=== PATIENT | female | born 2000 | race Caucasian/White ===

== ENCOUNTER 2020-02-16 09:02 | Outpatient (CLI) | payer OTHER, SELFPAY ==
--- NOTE | ~2020-02-16 | US_ITS ---
EXAMINATION: US retroperitoneal duplex ltd EXAM DATE: 02/16/2020 09:37 INDICATION: Essential hypertension. TECHNIQUE: Multiple grayscale and Doppler images of the retroperitoneum and renal arteries were obta ined. There is no prior study for comparison. FINDINGS: The aorta peak systolic velocity is 117 cm/s. The right renal artery peak systolic velocity is 73 cm/ s in the proximal segment, 65 cm/s in the mid segment, and 50 cm/s in the distal segment. The left re nal artery peak systolic velocity is 76 cm/s in the proximal segment, 72 cm/s in the mid segment, and 109 cm/s in the distal segment. IMPRESSION: 1. Renal artery Doppler velocities within normal limits. Reviewed, dictated and finalized at location B. ENTER GENERAL
== END 2020-02-16 09:03 | disposition home or self-care (01) ==
PROVIDERS: PCP Emergency Medicine; Visit Provider Emergency Medicine
DX: I10 Essential (primary) hypertension (principal)
CPT/HCPCS: 93976

== ENCOUNTER → 2020-04-22 06:57 | Outpatient (CLI) | payer OTHER, SELFPAY ==
[2020-04-22 22:51] LABS: SARS-CoV-2 RNA PCR Negative
== END ==
PROVIDERS: PCP Emergency Medicine; Visit Provider Emergency Medicine
DX: Z20.822 Contact with and (suspected) exposure to COVID-19 (principal); J01.10 Acute frontal sinusitis, unspecified; J02.9 Acute pharyngitis, unspecified
CPT/HCPCS: C9803; U0003; U0005

== ENCOUNTER 2020-04-27 15:59 | Outpatient (CLI) | payer OTHER, SELFPAY ==
--- NOTE | ~2020-04-27 | CT_ITS ---
EXAMINATION: CT sinus wo con DATE: 04/27/2020 16:18 INDICATION: Acute frontal sinusitis and pressure TECHNIQUE: Computed tomography (CT) of the paranasal sinuses was performed without intravenous contra st. The dose-length product (DLP) was 228.78 mGy-cm. Iterative reconstruction was used. COMPARISON: None FINDINGS: There is normal development and pneumatization of the paranasal sinuses. The frontal, sphen oid, ethmoid, and maxillary sinuses are clear. The bilateral ostiomeatal complexes are patent. Visual ized soft tissues are unremarkable. Multiple dental caries are noted. IMPRESSION: 1. No evidence of sinusitis. 2. Multiple dental caries. Reviewed, dictated and finalized at location A. CAL POLICY SPECIALIST
== END 2020-04-27 16:00 | disposition home or self-care (01) ==
LOC: ANHIMG 15:59
PROVIDERS: PCP Emergency Medicine; Visit Provider Emergency Medicine
DX: J01.10 Acute frontal sinusitis, unspecified (principal); R52 Pain, unspecified
CPT/HCPCS: 70486

== ENCOUNTER 2020-08-02 12:13 | Outpatient (CLI) | payer OTHER, SELFPAY ==
--- NOTE | ~2020-08-02 | XR_ITS ---
XR hip RT min 2V 08/02/2020 13:20 INDICATION: Right hip pain PROCEDURE: 2 views right hip COMPARISON: No prior studies for comparison. FINDINGS: Fracture, dislocation or subluxation is not identified. The soft tissues appear within norm al limits. No foreign bodies are identified. IMPRESSION: 1: NO ACUTE BONE OR JOINT ABNORMALITY IDENTIFIED. Reviewed, dictated and finalized at location B.
--- NOTE | ~2020-08-02 | XR_ITS ---
EXAMINATION: XR ankle RT 2V DATE: 08/02/2020 13:20 INDICATION: Right ankle pain post fall TECHNIQUE: Anteroposterior and lateral views of the right ankle were obtained. COMPARISON: None. FINDINGS: Alignment is normal. No fracture. Joint spaces are normal. Soft tissues are unremarkable. IMPRESSION: 1. Negative right ankle radiographs. Reviewed, dictated and finalized at location A.
== END 2020-08-02 12:14 | disposition home or self-care (01) ==
LOC: ANHIMG 12:15
PROVIDERS: PCP Emergency Medicine; Visit Provider Emergency Medicine
DX: M25.579 Pain in unspecified ankle and joints of unspecified foot (principal)
CPT/HCPCS: 73502; 73600

== ENCOUNTER 2020-09-28 16:07 | Emergency (ER) | payer OTHER, SELFPAY ==
--- NOTE | 2020-09-28 16:55 | ED.DENTAL ---
HPI - Dental/Oral General Chief complaint: Dental/Oral Stated complaint: TOOTH PAIN Source: patient, family and RN notes reviewed Mode of arrival: ambulatory History of Present Illness HPI Narrative: This is a 20-year-old female that presents to urgent care with according to patient she has been having left upper molar tooth pain. Patient has several decayed teeth in her mouth unsure of My several her teeth are decayed. Patient has a dental appointment in October. She will be with antibiotics and pain medication. The patient denies SOB, CP, palpitation, extremity numbness, lightheadedness, dizziness, constipation, diarrhea, chills, or fever. Teeth map: 1. Dental decay 2. Dental decay Related Data Home Medications Medication Instructions Recorded Confirmed hydroxyzine pamoate 50 mg capsule See Rx Instructions .ROUTE .COMPLEX 01/26/20 09/28/20 prazosin 5 mg capsule See Rx Instructions .ROUTE .COMPLEX 01/26/20 09/28/20 norethindrone-e.estradiol-iron [Lo tablet 09/28/20 Loestrin Fe] propranolol 09/28/20 risperidone mg 09/28/20 09/28/20 sertraline mg 09/28/20 Allergies Allergy/AdvReac Type Severity Reaction Status Date / Time bupropion [From Wellbutrin] Allergy Intermediate Unknown Unverified 09/28/20 16:35 Contrast Media Allergy Unknown Hives / Uncoded 09/28/20 16:35 Red Face Review of Systems Review of Systems: A 14 organ system Review of Systems was performed and pertinent positives included in the HPI, otherwise remaining ROS is negative. [facility] Past Medical History Medical History Abscess of coccyx (~2015) Asthma Migraine Rapid heartbeat Rash Vaginal bleeding between periods Vaginal infection Surgical History Surgical History Hx of tonsillectomy (~2011) Family History Family History Father High cholesterol Bipolar 1 disorder Depression Mother Bipolar 1 disorder Depression Anxiety OCD (obsessive compulsive disorder) Social History Social History Social History: Patient drinks 2 cups of caffeine daily Smoking status: Never smoker Alcohol intake: never Substance use: never Additional occupation/education comments: Disabled Exam Narrative: GENERAL: This is a well-nourished, well-developed patient, in no apparent distress. HEAD: normocephalic, atraumatic. Mouth several of decayed teeth EYES: PERRL. Sclera clear/white. Vision is grossly intact. EARS: External ears normal, auditory canals clear and without drainage, TMs normal without perforation. Hearing grossly intact. NOSE: External nose normal with no obvious nasal discharge, nares without redness, no rhinorrhea. THROAT: Mucous membranes moist, posterior pharynx clear. NECK: Neck supple, non-tender without lymphadenopathy, masses or thyromegaly. CARDIOVASCULAR: Regular rate and rhythm without murmurs, gallops, or rubs. RESPIRATORY: Clear to auscultation. Breath sounds equal bilaterally. No wheezes, rales, or rhonchi. GASTROINTESTINAL: Abdomen soft, non-tender, nondistended. Bowel sounds are active. No hepato-splenomegaly, or palpable masses. No guarding. SKIN: warm, intact with no suspicious lesions or rash, good texture and turgor. NEURO: awake, alert, and oriented to person, place and time. There were no obvious focal neurologic abnormalities. Steady gait EXTREMITIES: Normal range of motion. No edema. No calf tenderness. Negative Homans sign bilaterally. BACK: Nontender without deformity or crepitance. No flank tenderness. Course Course Emergency Course: Patient will be treated with antibiotics and pain medication instructed to follow-up with a dentist MDM - Dental/Oral Differential Diagnosis Differential diagnosis: Likely gingival abscess, dental caries, toothache, dental abscess and f
== END 2020-09-28 17:02 | disposition home or self-care (01) ==
PROVIDERS: Emergency Provider Nurse Practitioner; PCP Emergency Medicine
DX: K08.89 Other specified disorders of teeth and supporting structures (principal); K02.9 Dental caries, unspecified; J45.909 Unspecified asthma, uncomplicated
CPT/HCPCS: 99213; G0463

== ENCOUNTER 2020-11-08 15:06 | Emergency (ER) | payer OTHER, SELFPAY ==
[2020-11-08 15:22] VITALS: BP 149/100; PULSE 110; RESP 16; TEMP 36.1; O2SAT 97
[2020-11-08 16:01] LABS: Basophils Absolute Auto 0.1 K/mm3 (0.0-0.1); Basophils Percent Auto 0.7 % (0.2-1.2); Eosinophils Absolute Auto 0.2 K/mm3 (0-0.3); Eosinophils Percent Auto 1.7 % (0-4.4); Hematocrit 40.9 % (37.0-47.0); Hemoglobin 13.8 g/dL (12.0-15.0); Immature Granulocyte Absolute 0.06 K/mm3 (0.00-0.031); Immature Granulocyte Percent A 0.6 % (0-0.5); Lymphocytes Absolute Auto 3.08 K/mm3 (0.9-3.2); Lymphocytes Percent Auto 28.9 % (18.3-44.2); Mean Corpuscular HGB Conc 33.7 g/dl (32-36); Mean Corpuscular Hemoglobin 27.4 pg (26-34); Mean Corpuscular Volume 81.3 fl (80-100); Mean Platelet Volume 9.8 fl (7.4-10.4); Monocytes Absolute Auto 0.7 K/mm3 (0.1-0.6); Monocytes Percent Auto 6.2 % (2.6-8.5); Neutrophils Absolute Auto 6.6 K/mm3 (1.3-6.7); Neutrophils Percent Auto 61.9 % (45.5-73.1); Platelet Count Result 282 k/mm3 (150-375); Red Blood Count 5.03 M/mm3 (4.2-5.4); Red Cell Distribution Width 15.1 % (11.5-14.5); White Blood Count 10.6 K/mm3 (4.5-10.0)
[2020-11-08 16:14] LABS: Ethanol < 10 mg/dL (<10)
[2020-11-08 16:15] LABS: Alanine Aminotransferase 13 U/L (4-35); Albumin Level 4.2 g/dL (3.5-5.1); Alkaline Phosphatase 115 U/L (38-126); Anion Gap 13 mmol/L (8-16); Aspartate Amino Transferase 18 U/L (14-36); Bilirubin,Total 0.3 mg/dL (0.2-1.3); Blood Urea Nitrogen 17 mg/dL (7-17); Calcium 9.7 mg/dL (8.4-10.2); Carbon Dioxide 21 mmol/L (22-30); Chloride 106 mmol/L (98-107); Estimated CRCL calculation 172 ml/min; Estimated Glomerular Filt Rate > 60; Glucose 101 mg/dL (65-110); Potassium 4.4 mmol/L (3.4-5.0); Sodium 140 mmol/L (137-145)
[2020-11-08 16:18] LABS: Add Urine Microscopic? YES; Appearance Urine Clear (Clear); Benzodiazepines Screen Urine Negative (Negative); Bilirubin Urine Negative (Negative); Blood Urine Negative (Negative); Color Urine Yellow (Yellow); Glucose Urine UA Negative (Negative); Ketones Urine Negative (Negative); Leukocyte Esterase Ur 3+ LEU/UL (Negative); Mucus Urine Rare /lpf; Nitrate Urine Negative (Negative); Protein Urine 2+ mg/dL (Negative); Squamous Epithelial Cell Urine Many /hpf (Few); Urobilinogen Urine Negative mg/dL (<2.0)
[2020-11-08 16:21] LABS: Specific Grav Ur 1.042 (1.001-1.035)
[2020-11-08 16:23] LABS: Barbiturate Screen Urine Negative (Negative)
--- NOTE | 2020-11-08 16:23 | ED.PSYCH ---
HPI - Psych General Chief Complaint: Psychiatric Symptoms <Lavinia Bai PA-C - Last Filed: 11/11/20 15:41> Stated Complaint: SI <Lavinia Bai PA-C - Last Filed: 11/11/20 15:41> Time Seen by Provider: 11/08/20 15:37 <Lavinia Bai PA-C - Last Filed: 11/11/20 15:41> Source: patient and family <Lavinia Bai PA-C - Last Filed: 11/11/20 15:41> Mode of arrival: EMS <BRIANA Burch Last Filed: 11/11/20 15:41> Limitations: no limitations <Lavinia Bai PA-C - Last Filed: 11/11/20 15:41> History of Present Illness HPI Narrative: This is a 20-year-old female that presents to the emergency department for suicidal ideations. Reports she was sent here from her primary's office. She has had a lot of trouble with depression. Worsening over the last couple of months. Reports she cannot take it anymore. She wants to hurt herself and plans to slit her wrists. She does have history of previous self-harm. Also reports several psychiatric hospitalizations in the past. Reports visual hallucinations. Denies homicidal ideation or auditory hallucinations. <Lavinia Bai PA-C - Last Filed: 11/11/20 15:41> Related Data Home Medications: Home Medications Medication Instructions Recorded Confirmed hydroxyzine pamoate 50 mg capsule See Rx Instructions .ROUTE .COMPLEX 01/26/20 11/08/20 prazosin 5 mg capsule See Rx Instructions .ROUTE .COMPLEX 01/26/20 11/08/20 norethindrone-e.estradiol-iron [Lo tablet 09/28/20 11/08/20 Loestrin Fe] risperidone mg 09/28/20 11/08/20 sertraline mg 09/28/20 11/08/20 <BRIANA Burch Last Filed: 11/11/20 15:41> Allergies/Adverse Reactions: Allergies Allergy/AdvReac Type Severity Reaction Status Date / Time bupropion [From Wellbutrin] Allergy Intermediate Unknown Verified 11/08/20 17:15 Contrast Media Allergy Unknown Hives / Uncoded 11/08/20 17:15 Red Face <Lavinia Bai PA-C - Last Filed: 11/11/20 15:41> Review of Systems Review of Systems: CONSTITUTIONAL: Denies fever GENITOURINARY: Reports dysuria PSYCHIATRIC: Reports anxiety and depression. <Lavinia Bai PA-C - Last Filed: 11/11/20 15:41> All systems reviewed & are unremarkable except as noted in HPI and below <Lavinia Bai PA-C - Last Filed: 11/11/20 15:41> PMFSH Past Medical History Medical History: Medical History Abscess of coccyx (~2015) Asthma Migraine Rapid heartbeat Rash Vaginal bleeding between periods Vaginal infection <BRIANA Burch Last Filed: 11/11/20 15:41> Surgical History Surgical History: Surgical History Hx of tonsillectomy (~2011) <Lavinia Bai PA-C - Last Filed: 11/11/20 15:41> Family History Family History: Family History Father High cholesterol Bipolar 1 disorder Depression Mother Bipolar 1 disorder Depression Anxiety OCD (obsessive compulsive disorder) <Lavinia Bai PA-C - Last Filed: 11/11/20 15:41> Social History Social History: Social History Social History: Patient drinks 2 cups of caffeine daily Smoking status: Never smoker Alcohol intake: never Substance use: never Substance use type: does not use Additional occupation/education comments: Disabled <BRIANA Burch Last Filed: 11/11/20 15:41> Exam Narrative: GENERAL: Well-appearing, well-nourished, and in no acute distress. HEAD: Normocephalic, atraumatic. EYES: EOMI. ENT: Nares clear, no rhinorrhea or epistaxis. Mucous membranes moist. Oropharynx without tonsillar hypertrophy exudate or other lesions. CHEST: Clear to auscultation. No respiratory distress. No wheezes rales or rhonchi HEART: Regular rate and rhythm. No murmur heard. Normal peripheral
[2020-11-08 16:26] LABS: Amphetamine Screen Urine Negative (Negative); Cannabinoid Screen Urine Negative (Negative); Cocaine Screen Urine Negative (Negative); Methadone Screen Urine Negative (Negative); Opiate Screen Urine Negative (Negative); Phencyclidine Screen Urine Negative (Negative)
[2020-11-08] MEDS: NITROFURANTOIN MONOHYD MACROCR 100 MG CAP PO (17:02)
[2020-11-08 18:48] VITALS: BP 149/97; PULSE 108; RESP 16; TEMP 36.4; O2SAT 98
[2020-11-08] MEDS: ACETAMINOPHEN 500 MG TABLET 1000 MG PO (19:25)
[2020-11-08 19:50] LABS: EDCOVIDSCREEN Negative (Negative)
--- NOTE | 2020-11-08 19:50 | PC.NURSE ---
Addendum entered by Irene Zavaleta RN 11/08/20 19:53: I spoke to May at [facility] Original Note: May from [facility] called about the covid test. Told her we will call her when it comes back. [phone]
--- NOTE | 2020-11-08 19:52 | PC.NURSE ---
Returned called to Zeinab at [facility]-informed her of the negative covid. Zeinab said she would start working it up and someone would call us back.
--- NOTE | 2020-11-08 20:37 | PC.NURSE ---
Called [facility], they will send someone out.
--- NOTE | 2020-11-08 21:06 | PC.NURSE ---
[facility] speaking w/ pt over the phone at this time.
[2020-11-08 21:45] VITALS: BP 155/102; PULSE 103; RESP 18; O2SAT 97
--- NOTE | 2020-11-08 21:50 | PC.NURSE ---
faxed paperwork to [facility] per Clara's request.
[2020-11-08] MEDS: PRAZOSIN HCL 5 MG CAPSULE PO (22:33)
[2020-11-08] MEDS: hydrOXYzine pamoate 25 MG CAPSULE 50 MG PO (22:34)
[2020-11-08] MEDS: OLANZapine 5 MG TABLET 10 MG PO (22:34)
--- NOTE | 2020-11-08 22:52 | PC.NURSE ---
talked w/ Clara at [facility] and stated that she received the paperwork, but before she can go we have to bring her blood pressure down. gave pt her night time medications and will recheck her blood pressure at 2300.
[2020-11-08 23:11] VITALS: BP 150/86; PULSE 101; RESP 18; O2SAT 98
--- NOTE | 2020-11-08 23:20 | PC.NURSE ---
Talked to Alisa at [facility] about pt blood pressure being 150/84 to see if that was okay. He states we need to give her something to lower it even more before they will take her. AMY Babb made aware and states he will order something for her.
[2020-11-08] MEDS: lisinopriL 20 MG TABLET PO (23:26)
[2020-11-08] MEDS: hydroCHLOROthiazide 25 MG TABLET PO (23:26)
[2020-11-08 23:57] VITALS: BP 129/56; PULSE 102; RESP 18; O2SAT 99
--- NOTE | 2020-11-09 00:05 | PC.NURSE ---
faxed medications given and vitals to [facility].
--- NOTE | 2020-11-09 01:22 | PC.NURSE ---
called [facility] to request transport. ETA [phone]
--- NOTE | 2020-11-09 01:25 | PC.NURSE ---
[facility], [facility], and [facility] not available.
[2020-11-09 02:57] VITALS: BP 102/63; PULSE 109; RESP 16; O2SAT 99
--- NOTE | 2020-11-09 03:26 | PC.NURSE ---
[facility] here
== END 2020-11-09 03:38 ==
PROVIDERS: Emergency Medicine; Physician Assistant; Emergency Provider Emergency Medicine; PCP Emergency Medicine
DX: R45.851 Suicidal ideations (principal); F32.9 Major depressive disorder, single episode, unspecified; Z20.822 Contact with and (suspected) exposure to COVID-19; Z87.09 Personal history of other diseases of the respiratory system; Z86.69 Personal history of other diseases of the nervous system and sense organs; Z91.5 Personal history of self-harm
CPT/HCPCS: 36415; 80053; 80307; 81001; 81025; 84443; 85025; 87086; 87088; 87426; 99285; A9270; C9803

== ENCOUNTER 2020-12-23 14:39 | Emergency (ER) | payer OTHER, SELFPAY ==
--- NOTE | 2020-12-23 14:43 | ED.DENTAL ---
HPI - Dental/Oral General Chief complaint: Dental/Oral Stated complaint: tooth pain Time Seen by Provider: 12/23/20 14:43 Source: patient, RN notes reviewed and old records reviewed Mode of arrival: ambulatory Limitations: no limitations History of Present Illness HPI Narrative: 20-year-old female presents to the [facility] with complaints of dental pain. Patient complains of left lower posterior dental pain. Mom reports that she sees low immediate dental, states that she needs to see an oral surgeon to have her wisdom teeth removed, states it will cost $4000 to have her wisdom teeth removed. Her insurance will not cover it and they do not have the money to pay for it. Gave information sheet in regards to dental providers. Related Data Home Medications Medication Instructions Recorded Confirmed hydroxyzine pamoate 50 mg capsule See Rx Instructions .ROUTE .COMPLEX 01/26/20 11/30/20 prazosin 5 mg capsule See Rx Instructions .ROUTE .COMPLEX 01/26/20 12/23/20 norethindrone-e.estradiol-iron [Lo 1 tablet PO DAILY 09/28/20 12/23/20 Loestrin Fe] risperidone 2 mg PO DAILY 09/28/20 12/23/20 sertraline 100 mg PO DAILY 09/28/20 12/23/20 Allergies Allergy/AdvReac Type Severity Reaction Status Date / Time bupropion [From Wellbutrin] Allergy Intermediate Unknown Verified 12/23/20 14:44 Contrast Media Allergy Unknown Hives / Uncoded 12/23/20 14:44 Red Face Review of Systems Review of Systems: All systems reviewed & are unremarkable except as noted in HPI and below Constitutional: Constitutional: Reports no additional constitutional complaints, Denies chills and Denies fever(s) Eyes: Eyes: Reports no additional eye complaints ENT: Reports system reviewed and no additional complaints, except as documented and Denies sore throat Comments: left lower dental pain Cardiovascular: Cardiovascular: Reports no additional cardiovascular complaints Respiratory: Respiratory: Reports no additional respiratory complaints Musculoskeletal: Musculoskeletal: Reports no additional musculoskeletal complaints Integumentary/Breasts: Skin/Breast: Reports system reviewed and no additional complaints, except as docu Neurologic: Reports system reviewed and no additional complaints, except as documented Psychiatric: Psychiatric: Reports no additional psychiatric complaints Allergic/Immunologic: Allergic/Immunologic: Reports no additional allergic/immunologic complaints PMFSH Past Medical History Medical History Abscess of coccyx (~2015) Asthma Migraine Rapid heartbeat Rash Vaginal bleeding between periods Vaginal infection Surgical History Surgical History Hx of tonsillectomy (~2011) Family History Family History Father High cholesterol Bipolar 1 disorder Depression Mother Bipolar 1 disorder Depression Anxiety OCD (obsessive compulsive disorder) Social History Social History Social History: Patient drinks 2 cups of caffeine daily Smoking status: Never smoker Alcohol intake: never Substance use: never Substance use type: does not use Additional occupation/education comments: Disabled Comments At the time of my signature, I reviewed and agree with the nursing past medical, surgical, social, and family history. There is no relevant family history pertinent to the patient complaint. Exam Const: General: healthy appearing, no acute distress and alert Nutritional Appearance: well nourished and obese morbidly obese Orientation/consciousness: patient oriented x3 Limitations: no limitations HENMT: Head: normal to inspection Ears: hearing grossly normal bilaterally, external ears normal, TM's normal bilaterally and EAC's normal General nose exam: Normal external nose present Face and sinus: normal facial ex
[2020-12-23 14:50] VITALS: BP 140/98; PULSE 131; RESP 18; TEMP 37.2; O2SAT 99
[2020-12-23 15:01] VITALS: BP 140/98; PULSE 131; RESP 18; TEMP 37.2; O2SAT 99
== END 2020-12-23 15:02 | disposition home or self-care (01) ==
PROVIDERS: Emergency Provider Nurse Practitioner; PCP Emergency Medicine
DX: G89.29 Other chronic pain (principal); K08.89 Other specified disorders of teeth and supporting structures; K02.9 Dental caries, unspecified; J45.909 Unspecified asthma, uncomplicated
CPT/HCPCS: 99213; G0463

== ENCOUNTER 2022-03-02 18:12 | Emergency (ER) | payer MEDICAID, SELFPAY ==
--- NOTE | ~2022-03-02 | XR_ITS ---
EXAMINATION: XR chest 2V 03/02/2022 18:47 INDICATION: Chest pain and shortness of breath PROCEDURE: 2 view chest COMPARISON: 12/08/2018 FINDINGS: The lungs are clear. The cardiomediastinal silhouette is within normal limits. There are no pleural effusions. There is no pneumothorax suspected. There is scoliosis. IMPRESSION: 1: NO ACUTE CARDIOPULMONARY DISEASE. Reviewed, dictated and finalized at location A. INE FILLER SERVICER
[2022-03-02 18:15] VITALS: BP 131/107; PULSE 115; RESP 20; TEMP 36.4; O2SAT 100
--- NOTE | 2022-03-02 18:20 | ECG_ITS ---
Measurements Intervals [place] Rate: 119 P: 47 OH: 165 QRS: 34 QRSD: 81 T: 29 QT: 331 QTc: 466 Interpretive Statements SINUS TACHYCARDIA BORDERLINE T WAVE ABNORMALITY- ANTERIOR LEADS ABNORMAL ECG COMPARED TO ECG 12/08/2018 16:16:10 SINUS TACHYCARDIA NOW PRESENT Electronically Signed On 03-02-2022 21:06:29 GSA COORDINATOR by Chip Pierre D.O.
--- NOTE | 2022-03-02 18:45 | ED.GENADULT ---
HPI - General Adult General Chief complaint: Shortness of Breath/Dyspnea Stated complaint: chest pain, SOB Time Seen by Provider: 03/02/22 18:35 History of Present Illness HPI narrative: 21-year-old female history of hypertension presents to the emergency room for evaluation of intermittent chest pain for 4 days. States the pain is midsternal radiates into the back. Pain is worse when laying down, improved laying on her side. Associated with some mild shortness of breath. Patient states she normally takes propranolol for hypertension, and has been out of her medications for 1 week. Related Data Home Medications Medication Instructions Recorded Confirmed hydroxyzine pamoate 50 mg capsule See Rx Instructions .Route .COMPLEX 01/26/20 11/30/20 prazosin 5 mg capsule See Rx Instructions .Route .COMPLEX 01/26/20 12/23/20 drospirenone 3 mg-estetrol 14.2 mg See Rx Instructions PO .COMPLEX 06/14/21 (28) tablet (Nextstellis) Allergies Allergy/AdvReac Type Severity Reaction Status Date / Time bupropion [From Wellbutrin] Allergy Intermediate Unknown Verified 06/13/21 14:21 Contrast Media Allergy Unknown Hives / Uncoded 12/23/20 14:44 Red Face Review of Systems Review of Systems: CONSTITUTIONAL: Denies fever, chills, or sweats. EYES: Denies visual changes, redness, or discharge. ENT: Denies rhinorrhea, congestion, sore throat, or otalgia. CARDIOVASCULAR: Reports chest pain reports dyspnea RESPIRATORY: Reports dyspnea. GASTROINTESTINAL: Denies abdominal pain, nausea, vomiting, or diarrhea. GENITOURINARY: Denies dysuria or hematuria. SKIN: Denies rash or itching. MUSCULOSKELETAL: Denies back pain, joint pain, or myalgia. NEUROLOGIC: Denies headache, numbness, dizziness, or weakness. PSYCHIATRIC: Denies anxiety or depression. [facility] Past Medical History Medical History Abscess of coccyx (~2015) Asthma Migraine Rapid heartbeat Rash Vaginal bleeding between periods Vaginal infection Surgical History Surgical History Hx of tonsillectomy (~2011) Family History Family History Father High cholesterol Bipolar 1 disorder Depression Mother Bipolar 1 disorder Depression Anxiety OCD (obsessive compulsive disorder) Social History Social History Social History: Patient drinks 2 cups of caffeine daily Smoking status: Never smoker Alcohol intake: never Substance use: never Substance use type: does not use Additional occupation/education comments: Disabled Exam Narrative: GENERAL: Well-appearing, well-nourished, no physical limitations, and in no acute distress. HEAD: Normocephalic, atraumatic. EYES: Conjunctivae normal, PERRLA and EOMI. CHEST: Clear to auscultation. No respiratory distress. No wheezes rales or rhonchi. No tenderness. HEART: Regular rate and rhythm. No murmur heard. Normal peripheral pulses. ABDOMEN: Soft, morbidly obese, nondistended, normal active bowel sounds. EXTREMITIES: Normal range of motion. No edema. No clubbing or cyanosis SKIN: Warm, dry, no rash. No noted wounds NEURO: No focal deficits. Alert and oriented x3. MAEW. CN's II-XI intact bilaterally, normal gait PSYCH: Cooperative. Normal mood and affect. Course Vital Signs Vital signs: Vital Signs Temperature 36.4 C 03/02/22 18:15 Pulse Rate 115 H 03/02/22 18:15 Respiratory Rate 03/02/22 18:15 Blood Pressure 131/107 H 03/02/22 18:15 Pulse Oximetry 100 03/02/22 18:15 Oxygen Delivery Room Air 03/02/22 18:15 Temperature 36.4 C 03/02/22 18:15 Pulse Rate 115 H 03/02/22 18:15 Respiratory Rate 03/02/22 18:15 Blood Pressure 131/107 H 03/02/22 18:15 Pulse Oximetry 100 03/02/22 18:15 Oxygen Delivery Room Air 03/02/22 18:15 Medical Decision Making MDM
[2022-03-02 18:52] LABS: Basophils Absolute Auto 0.1 K/mm3 (0.0-0.1); Basophils Percent Auto 0.5 % (0.2-1.2); Eosinophils Absolute Auto 0.3 K/mm3 (0-0.3); Eosinophils Percent Auto 1.4 % (0-4.4); Hemoglobin 12.9 g/dL (12.0-15.0); Immature Granulocyte Absolute 0.15 K/mm3 (0.00-0.031); Immature Granulocyte Percent A 0.7 % (0-0.5); Lymphocytes Absolute Auto 5.02 K/mm3 (0.9-3.2); Lymphocytes Percent Auto 24.5 % (18.3-44.2); Mean Corpuscular HGB Conc 33.9 g/dl (32-36); Mean Corpuscular Hemoglobin 27.4 pg (26-34); Mean Corpuscular Volume 80.9 fl (80-100); Mean Platelet Volume 9.6 fl (7.4-10.4); Monocytes Absolute Auto 0.9 K/mm3 (0.1-0.6); Monocytes Percent Auto 4.3 % (2.6-8.5); Neutrophils Percent Auto 68.6 % (45.5-73.1); Platelet Count Result 376 k/mm3 (150-375); Red Cell Distribution Width 14.6 % (11.5-14.5); White Blood Count 20.5 K/mm3 (4.5-10.0)
[2022-03-02 18:58] LABS: Alanine Aminotransferase 18 U/L (6-35); Alkaline Phosphatase 119 U/L (38-126); Anion Gap 8 mmol/L (8-16); Aspartate Amino Transferase 17 U/L (14-36); Bilirubin,Total 0.5 mg/dL (0.2-1.3); Blood Urea Nitrogen 9 mg/dL (7-17); Calcium 8.5 mg/dL (8.4-10.2); Carbon Dioxide 26 mmol/L (22-30); Chloride 102 mmol/L (98-107); Estimated Glomerular Filt Rate > 60; Glucose 103 mg/dL (65-110); Potassium 3.8 mmol/L (3.4-5.0); Sodium 136 mmol/L (137-145)
[2022-03-02 19:23] LABS: Troponin I < 0.012 ng/mL (0.000-0.034)
[2022-03-02 19:50] LABS: Influenza A QL RT-PCR Negative (Negative); Influenza B QL RT-PCR Negative (Negative); RSV RNA, RT-PCR Negative (Negative); SARS-CoV-2 RNA PCR Negative
[2022-03-02] MEDS: SODIUM CHLORIDE 0.9% IV 1,000 ML 999 ML IV CONT (20:11)
[2022-03-02 20:24] LABS: Lactic Acid Reflex 1.1 mmol/L (0.7-2.0)
[2022-03-02 20:27] LABS: Add Urine Microscopic? YES; Appearance Urine Clear (Clear); Bilirubin Urine Negative (Negative); Blood Urine Negative (Negative); Color Urine Yellow (Yellow); Glucose Urine UA Negative (Negative); Ketones Urine Negative (Negative); Leukocyte Esterase Ur Trace LEU/UL (Negative); Nitrate Urine Negative (Negative); Protein Urine Negative (Negative); Specific Grav Ur 1.025 (1.001-1.035); Urobilinogen Urine 0.2 mg/dL (<2.0)
[2022-03-02 20:36] LABS: Bacteria Urine 1+ /hpf; Mucus Urine Heavy /lpf; Squamous Epithelial Cell Urine Many /hpf (Few)
[2022-03-02 21:25] VITALS: BP 147/98; PULSE 96; RESP 16; O2SAT 100
== END 2022-03-02 21:32 | disposition home or self-care (01) ==
PROVIDERS: Emergency Medicine; Emergency Provider Nurse Practitioner Family; PCP Emergency Medicine
DX: R06.00 Dyspnea, unspecified (principal); I10 Essential (primary) hypertension; D72.829 Elevated white blood cell count, unspecified; T44.7X6A Underdosing of beta-adrenoreceptor antagonists, initial encounter; J45.909 Unspecified asthma, uncomplicated; R00.0 Tachycardia, unspecified; R94.31 Abnormal electrocardiogram [ECG] [EKG]
CPT/HCPCS: 36415; 71046; 80053; 81001; 83605; 84484; 85025; 87086; 87088; 87637; 93005; 96360; 99284; J7030

== ENCOUNTER 2022-04-09 11:35 | Emergency (ER) | payer MEDICAID, SELFPAY ==
--- NOTE | ~2022-04-09 | NM_ITS ---
EXAMINATION: NM pulmonary perfusion DATE: 04/09/2022 16:18 INDICATION: Chest pain. TECHNIQUE: 5.5 mCi Tc-99m MAA was administered intravenously for perfusion images. Scintigraphic samantha ges of the chest were obtained. COMPARISON: Chest 2 views 04/09/2022 FINDINGS: Perfusion images show no defects. IMPRESSION: 1. Normal perfusion. Reviewed, dictated and finalized at location A. EGE ARCHIVIST IMPRESSION: 1. Normal perfusion.
--- NOTE | ~2022-04-09 | XR_ITS ---
EXAMINATION: XR chest 2V DATE: 04/09/2022 12:28 INDICATION: Chest pain and cough TECHNIQUE: Frontal and lateral views of the chest are obtained COMPARISON: 03/02/2022 FINDINGS: The lungs are free of acute opacities. No pleural effusion or pneumothorax. The cardiomedia stinal silhouette is normal. Upper thoracic levoscoliosis is noted. IMPRESSION: 1. No acute cardiopulmonary abnormality. Reviewed, dictated and finalized at location B. [facility] [employer] REPAIR[facility]
--- NOTE | 2022-04-09 11:40 | ECG_ITS ---
Measurements Intervals [place] Rate: 120 P: 44 GA: 156 QRS: 44 QRSD: 77 T: 14 QT: 315 QTc: 447 Interpretive Statements SINUS TACHYCARDIA ABNORMAL RHYTHM ECG COMPARED TO ECG 03/02/2022 18:27:08 NO SIGNIFICANT CHANGES Electronically Signed On 04-09-2022 12:18:57 GRAPHIC DESIGN ASSISTANT by Tony Aguirre M.D.
[2022-04-09 11:49] VITALS: BP 141/77; PULSE 120; RESP 16; TEMP 37; O2SAT 96
[2022-04-09 12:09] LABS: Basophils Absolute Auto 0.1 K/mm3 (0.0-0.1); Basophils Percent Auto 0.5 % (0.2-1.2); Eosinophils Absolute Auto 0.1 K/mm3 (0-0.3); Eosinophils Percent Auto 0.4 % (0-4.4); Hematocrit 40.4 % (37.0-47.0); Hemoglobin 13.6 g/dL (12.0-15.0); Immature Granulocyte Absolute 0.09 K/mm3 (0.00-0.031); Immature Granulocyte Percent A 0.5 % (0-0.5); Lymphocytes Absolute Auto 3.17 K/mm3 (0.9-3.2); Lymphocytes Percent Auto 19.3 % (18.3-44.2); Mean Corpuscular HGB Conc 33.7 g/dl (32-36); Mean Corpuscular Hemoglobin 28.2 pg (26-34); Mean Corpuscular Volume 83.8 fl (80-100); Mean Platelet Volume 9.8 fl (7.4-10.4); Monocytes Absolute Auto 0.7 K/mm3 (0.1-0.6); Monocytes Percent Auto 4.3 % (2.6-8.5); Neutrophils Absolute Auto 12.3 K/mm3 (1.3-6.7); Platelet Count Result 321 k/mm3 (150-375); Red Blood Count 4.82 M/mm3 (4.2-5.4); Red Cell Distribution Width 14.6 % (11.5-14.5); White Blood Count 16.4 K/mm3 (4.5-10.0)
[2022-04-09 12:21] LABS: INR 1.1; Prothrombin Time 13.8 Seconds (11.1-14.7)
[2022-04-09 12:22] LABS: Partial Thromboplastin Time 29.9 SECONDS (22.3-36.8)
[2022-04-09 12:36] LABS: Alanine Aminotransferase 22 U/L (6-35); Albumin Level 3.6 g/dL (3.5-5.1); Alkaline Phosphatase 86 U/L (38-126); Anion Gap 6 mmol/L (8-16); Aspartate Amino Transferase 16 U/L (14-36); Bilirubin,Total 0.5 mg/dL (0.2-1.3); Blood Urea Nitrogen 17 mg/dL (7-17); Calcium 8.7 mg/dL (8.4-10.2); Carbon Dioxide 27 mmol/L (22-30); Chloride 101 mmol/L (98-107); Estimated Glomerular Filt Rate > 60; Glucose 115 mg/dL (65-110); Lipase 54 U/L (23-300); Sodium 134 mmol/L (137-145)
[2022-04-09 12:48] LABS: Troponin I < 0.012 ng/mL (0.000-0.034)
[2022-04-09 13:27] VITALS: BP 132/96; PULSE 107; RESP 18; O2SAT 99
[2022-04-09 13:45] VITALS: PULSE 103; RESP 20; O2SAT 100
--- NOTE | 2022-04-09 13:45 | ED.CHESTPAIN ---
HPI - Chest Pain General Chief Complaint: Chest Pain Stated Complaint: chest pain Time Seen by Provider: 04/09/22 13:25 History of Present Illness HPI narrative: Patient is a 21-year-old female here for evaluation of chest pain over the past 2 days. Patient states the pain is sharp and stabbing in nature, present over her left chest. States the pain is there constantly, no worse with exertion or movement. The pain does get worse with deep cough. No fevers, chills, diarrhea or constipation. Does note some nausea. Has not attempted any medicine for her pain. Related Data Home Medications Medication Instructions Recorded Confirmed prazosin 5 mg capsule See Rx Instructions .Route .COMPLEX 01/26/20 12/23/20 Allergies Allergy/AdvReac Type Severity Reaction Status Date / Time bupropion [From Wellbutrin] Allergy Intermediate Unknown Verified 06/13/21 14:21 Contrast Media Allergy Unknown Hives / Uncoded 12/23/20 14:44 Red Face Review of Systems Review of Systems: Gen: Denies fevers or chills Eyes: Denies eye pain or visual change ENT: Denies congestion Respiratory: Denies shortness of breath or cough CV: Reports chest pain GI: Denies abdominal pain nausea, emesis or diarrhea denies burning, urgency, frequency or hematuria Musculoskeletal: Denies back pain or muscle pain Neuro: Denies numbness, tingling, weakness or focal weakness Skin: Denies rash Except as documented, all other systems reviewed and negative [facility] Past Medical History Medical History Abscess of coccyx (~2015) Asthma Migraine Rapid heartbeat Rash Vaginal bleeding between periods Vaginal infection Surgical History Surgical History Hx of tonsillectomy (~2011) Family History Family History Father High cholesterol Bipolar 1 disorder Depression Mother Bipolar 1 disorder Depression Anxiety OCD (obsessive compulsive disorder) Social History Social History Social History: Patient drinks 2 cups of caffeine daily Smoking status: Never smoker Alcohol intake: never Substance use: never Substance use type: does not use Living arrangements: with family Occupation/Education: other Additional occupation/education comments: Disabled Exam Narrative: APPEARANCE: Obese, flat affect well appearing, no pain in distress, well-nourished. Head: Normocephalic and atraumatic. EYES: PERRLA/EOMI, conjunctivae clear NOSE: No nasal drainage EARS: External ear normal in appearance THROAT: Oropharynx is clear. Mucous membranes are moist. NECK: Supple. No adenopathy, no masses. RESPIRATORY: Airway patent, respirations nonlabored. Clear to auscultation bilaterally, no rales, rhonchi, wheezing. CARDIOVASCULAR: Regular rate and rhythm without murmurs, rubs, or gallops. ABDOMINAL: No abdominal tenderness on exam. Normoactive bowel sounds. Soft, nontender, nondistended. No rebound tenderness or guarding. MUSCULOSKELETAL: Extremities are warm and well-perfused. Moves all extremities well. No edema. NEURO: Normal speech. No focal neurologic deficits. SKIN: Skin is warm and dry. No rashes. PSYCHIATRIC: Flat affect. Course Vital Signs Vital signs: Vital Signs Temperature 98.6 F 04/09/22 11:49 Pulse Rate 120 H 04/09/22 11:49 Respiratory Rate 16 04/09/22 11:49 Blood Pressure 141/77 H 04/09/22 11:49 Pulse Oximetry 96 04/09/22 11:49 Oxygen Delivery Room Air 04/09/22 11:49 Temperature 98.6 F 04/09/22 11:49 Pulse Rate 102 H 04/09/22 16:48 Respiratory Rate 18 04/09/22 16:48 Blood Pressure 130/84 04/09/22 16:48 Pulse Oximetry 99 04/09/22 16:48 Oxygen Delivery Room Air 04/09/22 11:49 MDM - Chest Pain MDM Narrative Medical decision making narrative: 21-year-old
[2022-04-09 14:01] VITALS: BP 133/87; PULSE 103; RESP 18; O2SAT 95
[2022-04-09 14:15] LABS: D Dimer 0.49 ug/mL (<0.48)
[2022-04-09 15:15] VITALS: PULSE 109; RESP 14; O2SAT 98
[2022-04-09 15:22] LABS: Troponin I < 0.012 ng/mL (0.000-0.034)
[2022-04-09] MEDS: FAMOTIDINE 20 MG/2 ML VIAL IV PUSH (16:28)
[2022-04-09 16:48] VITALS: BP 130/84; PULSE 102; RESP 18; O2SAT 99
== END 2022-04-09 16:49 | disposition home or self-care (01) ==
PROVIDERS: Emergency Medicine; Emergency Provider Physician Assistant; PCP Emergency Medicine
DX: R07.89 Other chest pain (principal); J45.909 Unspecified asthma, uncomplicated; R00.0 Tachycardia, unspecified
CPT/HCPCS: 36415; 71046; 78580; 80053; 81025; 83690; 84484; 85025; 85380; 85610; 85730; 93005; 96374; 96375; 99284; A9540; J0131

== ENCOUNTER 2022-04-14 11:16 | Emergency (ER) | payer MEDICAID, SELFPAY ==
[2022-04-14] VITALS (11 sets, daily range): BP systolic 114–145; BP diastolic 75–92; PULSE 80–110; RESP 14–19; TEMP 36.6; O2SAT 98–100
--- NOTE | ~2022-04-14 | XR_ITS ---
XR chest 2V 04/14/2022 11:44 Indication: Chest pain Procedure: 2 view chest Comparison: Comparison to multiple prior studies sequentially, with oldest reviewed study dated 08/2017. Findings: There is bibasilar atelectasis. Mild scoliosis. Heart size normal. No pleural effusion, brenda ma or pneumothorax. No acute osseous abnormality. Impression: 1: Bibasilar atelectasis. Reviewed, dictated and finalized at location A. [facility] [employer] DEPARTMENT Impression: 1: Bibasilar atelectasis.
--- NOTE | ~2022-04-14 | US_ITS ---
EXAMINATION: US venous doppler [facility] DATE: 04/14/2022 14:51 INDICATION: calf pain . TECHNIQUE: Grayscale images without and with compression and Doppler images of the bilateral lower ex tremity veins were obtained. COMPARISON: None FINDINGS: The right peroneal vein is not visualized. The right common femoral vein, profunda (deep) femoral vei n, femoral vein, popliteal vein, posterior tibial veins, gastrocnemius vein, and greater saphenous ve in are patent. The left peroneal vein is not visualized. The left common femoral vein, profunda femoral vein, femora l vein, popliteal vein, posterior tibial veins, gastrocnemius vein, and greater saphenous vein are pa tent. IMPRESSION: 1. The bilateral peroneal veins were not visualized. 2. Otherwise patent bilateral lower extremity veins. No evidence of deep venous thrombosis. Reviewed, dictated and finalized at location K. ST AGENT
--- NOTE | 2022-04-14 11:25 | ECG_ITS ---
Measurements Intervals [place] Rate: 106 P: 7 CT: 162 QRS: 46 QRSD: 85 T: 14 QT: 338 QTc: 450 Interpretive Statements SINUS TACHYCARDIA NONSPECIFIC T-WAVE ABNORMALITY BORDERLINE ECG COMPARED TO ECG 04/09/2022 11:44:50 NO SIGNIFICANT CHANGES Electronically Signed On 04-15-2022 14:36:14 PACKAGING SUPERVISOR by Rafal Ling M.D.
[2022-04-14 11:46] LABS: Basophils Absolute Auto 0.1 K/mm3 (0.0-0.1); Basophils Percent Auto 0.5 % (0.2-1.2); Eosinophils Absolute Auto 0.1 K/mm3 (0-0.3); Eosinophils Percent Auto 0.8 % (0-4.4); Hematocrit 39.9 % (37.0-47.0); Hemoglobin 13.7 g/dL (12.0-15.0); Immature Granulocyte Absolute 0.06 K/mm3 (0.00-0.031); Immature Granulocyte Percent A 0.4 % (0-0.5); Lymphocytes Absolute Auto 3.55 K/mm3 (0.9-3.2); Lymphocytes Percent Auto 24.7 % (18.3-44.2); Mean Corpuscular HGB Conc 34.3 g/dl (32-36); Mean Corpuscular Hemoglobin 28.3 pg (26-34); Mean Corpuscular Volume 82.4 fl (80-100); Monocytes Absolute Auto 0.7 K/mm3 (0.1-0.6); Monocytes Percent Auto 4.9 % (2.6-8.5); Neutrophils Absolute Auto 9.9 K/mm3 (1.3-6.7); Neutrophils Percent Auto 68.7 % (45.5-73.1); Platelet Count Result 352 k/mm3 (150-375); Red Blood Count 4.84 M/mm3 (4.2-5.4); Red Cell Distribution Width 14.8 % (11.5-14.5); White Blood Count 14.4 K/mm3 (4.5-10.0)
[2022-04-14 11:57] LABS: INR 1.1; Partial Thromboplastin Time 29.5 SECONDS (22.3-36.8); Prothrombin Time 13.7 Seconds (11.1-14.7)
[2022-04-14 11:58] LABS: Alanine Aminotransferase 47 U/L (6-35); Albumin Level 4.1 g/dL (3.5-5.1); Alkaline Phosphatase 101 U/L (38-126); Anion Gap 8 mmol/L (8-16); Aspartate Amino Transferase 25 U/L (14-36); Bilirubin,Total 0.6 mg/dL (0.2-1.3); Blood Urea Nitrogen 11 mg/dL (7-17); Calcium 8.9 mg/dL (8.4-10.2); Carbon Dioxide 25 mmol/L (22-30); Chloride 104 mmol/L (98-107); Estimated CRCL calculation 156 ml/min; Estimated Glomerular Filt Rate > 60; Glucose 100 mg/dL (65-110); Lipase 37 U/L (23-300); Potassium 3.6 mmol/L (3.4-5.0); Sodium 137 mmol/L (137-145)
[2022-04-14 12:11] LABS: Troponin I < 0.012 ng/mL (0.000-0.034)
--- NOTE | 2022-04-14 14:44 | ED.CHESTPAIN ---
HPI - Chest Pain General Chief Complaint: Chest Pain Stated Complaint: chest pain Time Seen by Provider: 04/14/22 13:29 History of Present Illness HPI narrative: Patient is a 21-year-old female who presents ER with chest pain. Reports began at midnight last night. Sharp and central. Had something similar happen a week ago and reports she was diagnosed with anxiety. Patient does not think she is anxious at this time. However when she was having chest pain last night she was also having numbness in her lips and fingers. She also began having calf cramps bilaterally. Patient on her last evaluation did have a slightly elevated D-dimer and underwent a VQ scan that was low probability. Patient has a very flat affect. She has no other reports of distress. No hemoptysis. No calf pain at this time. Related Data Home Medications Medication Instructions Recorded Confirmed prazosin 5 mg capsule See Rx Instructions .Route .COMPLEX 01/26/20 12/23/20 Allergies Allergy/AdvReac Type Severity Reaction Status Date / Time Iodinated Contrast Media Allergy Severe Hives/RED Verified 04/14/22 13:40 FACE bupropion [From Wellbutrin] Allergy Intermediate Unknown Verified 04/14/22 13:40 Review of Systems Review of Systems: All systems reviewed & are unremarkable except as noted in HPI and below Constitutional: Constitutional: Denies chills, Denies fatigue and Denies fever(s) ENT: Denies nasal congestion and Denies sore throat Cardiovascular: Cardiovascular: Reports chest pain, Denies rapid heart rate and Denies radiating jaw, neck or arm pain Respiratory: Respiratory: Denies cough and Denies dyspnea Comments: Pain with deep breath Gastrointestinal: Gastrointestinal: Denies abdominal pain, Denies nausea and Denies vomiting Integumentary/Breasts: Skin/Breast: Denies erythema and Denies rash Neurologic: Denies headache(s), Denies focal weakness and Denies numbness PMFSH Past Medical History Medical History Abscess of coccyx (~2015) Asthma Migraine Rapid heartbeat Rash Vaginal bleeding between periods Vaginal infection Surgical History Surgical History Hx of tonsillectomy (~2011) Family History Family History Father High cholesterol Bipolar 1 disorder Depression Mother Bipolar 1 disorder Depression Anxiety OCD (obsessive compulsive disorder) Social History Social History Social History: Patient drinks 2 cups of caffeine daily Smoking status: Never smoker Alcohol intake: never Substance use: never Substance use type: does not use Living arrangements: with family Occupation/Education: other Additional occupation/education comments: Disabled Exam Narrative: GENERAL: Well-appearing, morbidly obese, and in no acute distress. HEAD: Normocephalic, atraumatic. EYES: PERRL and EOMI. ENT: Mucous membranes moist. CHEST: Clear to auscultation. No respiratory distress. HEART: Tachycardic and regular. Normal peripheral pulses. ABDOMEN: Soft, nontender, nondistended. EXTREMITIES: Normal range of motion. No edema. SKIN: Warm, dry, no rash. NEURO: Alert and oriented x3. PSYCH: Very flat affect and patient denies anxiety at this time. Course Course Emergency Course: Patient resting comfortably. Pain resolved with Toradol. Troponin negative x2. Lower extremities without DVT. White count improving from previous evaluation. Chest x-ray with atelectasis. Patient felt appropriate for discharge home. She has follow-up with her PCP in 2 days. Vital Signs Vital signs: Vital Signs Temperature 97.8 F 04/14/22 11:19 Pulse Rate 110 H 04/14/22 11:19 Respiratory Rate 18 04/14/22 11:19 Blood Pressure 127/75 04/14/22 11:19 Pulse Oximetry 100 03/28
[2022-04-14] MEDS: KETOROLAC 30 MG/ML VIAL (*BKC) IV PUSH (14:58)
[2022-04-14] MEDS: SODIUM CHLORIDE 0.9% IV 1,000 ML 999 ML IV CONT (14:59)
--- NOTE | 2022-04-14 15:09 | PC.NURSE ---
pt c/o pain to iv site. swelling noted around the catheter iv removed.
[2022-04-14 15:58] LABS: Troponin I < 0.012 ng/mL (0.000-0.034)
== END 2022-04-14 17:09 | disposition home or self-care (01) ==
PROVIDERS: Emergency Provider Emergency Medicine; PCP Emergency Medicine
DX: R07.89 Other chest pain (principal); J45.909 Unspecified asthma, uncomplicated; R00.0 Tachycardia, unspecified; R94.31 Abnormal electrocardiogram [ECG] [EKG]
CPT/HCPCS: 36415; 71046; 80053; 83690; 84484; 85025; 85610; 85730; 93005; 93970; 96361; 96374; 99284; J1885; J7030

== ENCOUNTER 2022-05-27 18:38 | Emergency (ER) | payer OTHER, SELFPAY ==
[2022-05-27 18:54] VITALS: BP 114/91; PULSE 115; RESP 18; TEMP 36.6; O2SAT 100
--- NOTE | 2022-05-27 19:17 | ED.DENTAL ---
HPI - Dental/Oral General Chief complaint: Dental/Oral Stated complaint: Dental Pain Time Seen by Provider: 05/27/22 19:18 Source: patient Mode of arrival: ambulatory Limitations: no limitations History of Present Illness HPI Narrative: 22-year-old female presents with lower dental pain for 1 week. Does not have a dentist. States that she has had dental insurance for the past 2 months but has not called and scheduled herself an appointment. She has not seen a dentist for years . She has been taking ibuprofen and Tylenol to treat her pain. Reports that she thinks she has wisdom teeth that need to get out . Plans To call an Oral surgeon tomorrow. afebrile. No significant facial swelling. All systems reviewed and negative except as noted above. Related Data Home Medications Medication Instructions Recorded Confirmed prazosin 5 mg capsule See Rx Instructions .Route .COMPLEX 01/26/20 05/27/22 aripiprazole 20 mg tablet 20 mg DAILY 05/27/22 05/27/22 buspirone 10 mg tablet 10 mg TID 05/27/22 05/27/22 risperidone 3 mg tablet 3 mg BID 05/27/22 05/27/22 venlafaxine 75 mg capsule,extended 75 mg PO DAILY 05/27/22 05/27/22 release 24 hr Allergies Allergy/AdvReac Type Severity Reaction Status Date / Time Iodinated Contrast Media Allergy Severe Hives/RED Verified 05/27/22 18:58 FACE bupropion [From Wellbutrin] Allergy Intermediate Unknown Verified 05/27/22 18:58 Review of Systems Review of Systems: CONSTITUTIONAL: Denies fever, chills, or sweats. EYES: Denies visual changes, redness, or discharge. ENT: Denies rhinorrhea, congestion, sore throat, or otalgia. Reports dental pain. CARDIOVASCULAR: Denies chest pain, palpitations, or edema. RESPIRATORY: Denies cough or dyspnea. GASTROINTESTINAL: Denies abdominal pain, nausea, vomiting, or diarrhea. GENITOURINARY: Denies dysuria or hematuria. SKIN: Denies rash or itching. MUSCULOSKELETAL: Denies back pain, joint pain, or myalgia. NEUROLOGIC: Denies headache, numbness, or weakness. PSYCHIATRIC: Denies anxiety or depression. All other systems reviewed are negative, except as documented in HPI. [facility] Past Medical History Medical History Abscess of coccyx (~2015) Asthma Migraine Rapid heartbeat Rash Vaginal bleeding between periods Vaginal infection Surgical History Surgical History Hx of tonsillectomy (~2011) Family History Family History Father High cholesterol Bipolar 1 disorder Depression Mother Bipolar 1 disorder Depression Anxiety OCD (obsessive compulsive disorder) Social History Social History Social History: Patient drinks 2 cups of caffeine daily Smoking status: Never smoker Alcohol intake: never Substance use: never Substance use type: does not use Living arrangements: with family Occupation/Education: other Additional occupation/education comments: Disabled Comments At time of signature, agree with nursing past medical, surgical, social and family history. There is no relevant family history pertinent to the presenting complaint. Exam Narrative: GENERAL: This is a well-nourished, well-developed patient, in no apparent distress. HEAD: normocephalic, atraumatic. EYES: PERRL. Sclera clear/white. Vision is grossly intact. EARS: External ears normal NOSE: External nose normal MOUTH: tooth #19 and #30 decayed and broken off at gumline with surrounding swelling. NECK: Neck supple, non-tender without lymphadenopathy, masses or thyromegaly. CARDIOVASCULAR: Regular rate and rhythm without murmurs, gallops, or rubs. RESPIRATORY: Clear to auscultation. Breath sounds equal bilaterally. No wheezes, rales, or rhonchi. SKIN: warm, Dry, intact with no suspicious lesions or rash, good text
== END 2022-05-27 19:34 | disposition home or self-care (01) ==
PROVIDERS: Emergency Provider Nurse Practitioner Family; PCP Emergency Medicine
DX: K08.89 Other specified disorders of teeth and supporting structures (principal); J45.909 Unspecified asthma, uncomplicated
CPT/HCPCS: 99213; G0463

== ENCOUNTER 2023-06-09 14:11 | Emergency (ER) | payer OTHER, SELFPAY ==
[2023-06-09 14:19] VITALS: BP 138/83; PULSE 96; RESP 20; TEMP 36.5; O2SAT 100
--- NOTE | 2023-06-09 14:44 | ED.GENADULT ---
HPI - General Adult General Chief complaint: Upper Respiratory Infection Stated complaint: Sore Throat Source: patient Mode of arrival: ambulatory Limitations: no limitations History of Present Illness HPI narrative: Patient presents for evaluation of sick symptoms since last week. Symptoms include runny nose, sore throat and diarrhea. No fever, chills, nausea, vomiting, cough, shortness of breath. She believes her symptoms started after attending a bonfire. She has a history of asthma but does not feel it has bothering her lately. She took tylenol for her symptoms but it did not make a considerable change in her symptoms. Related Data Home Medications Medication Instructions Recorded Confirmed prazosin 5 mg capsule See Rx Instructions .Route .COMPLEX 01/26/20 06/09/23 aripiprazole 20 mg tablet 20 mg DAILY 05/27/22 06/09/23 buspirone 10 mg tablet 10 mg TID 05/27/22 06/09/23 risperidone 3 mg tablet 3 mg BID 05/27/22 06/09/23 venlafaxine 75 mg capsule,extended 75 mg PO DAILY 05/27/22 06/09/23 release 24 hr metoprolol succinate 100 mg mg PO 06/09/23 tablet,extended release 24 hr Allergies Allergy/AdvReac Type Severity Reaction Status Date / Time Iodinated Contrast Media Allergy Severe Hives/RED Verified 06/09/23 14:19 FACE bupropion [From Wellbutrin] Allergy Intermediate Unknown Verified 06/09/23 14:19 Review of Systems Review of Systems: CONSTITUTIONAL: Denies fever, chills, or sweats. EYES: Denies visual changes, redness, or discharge. ENT: Reports sore throat and rhinorrhea. CARDIOVASCULAR: Denies chest pain, palpitations, or edema. RESPIRATORY: Denies cough or dyspnea. GASTROINTESTINAL: Reports diarrhea. Denies abdominal pain, nausea, and vomiting GENITOURINARY: Denies dysuria or hematuria. SKIN: Denies rash or itching. MUSCULOSKELETAL: Denies back pain, joint pain, or myalgia. NEUROLOGIC: Denies headache, numbness, dizziness, or weakness. PSYCHIATRIC: Denies anxiety or depression. [facility] Past Medical History Medical History Abscess of coccyx (~2015) Asthma Migraine Rapid heartbeat Rash Vaginal bleeding between periods Vaginal infection Surgical History Surgical History Hx of tonsillectomy (~2011) Family History Family History Father High cholesterol Bipolar 1 disorder Depression Mother Bipolar 1 disorder Depression Anxiety OCD (obsessive compulsive disorder) Social History Social History Social History: Patient drinks 2 cups of caffeine daily Smoking status: Never smoker Alcohol intake: never Substance use: never Substance use type: does not use Living arrangements: with family Occupation/Education: other Additional occupation/education comments: Disabled Exam Narrative: GENERAL: Well-appearing, well-nourished, and in no acute distress. HEAD: Normocephalic, atraumatic. EYES: PERRLA and EOMI. ENT: Nares clear, no rhinorrhea or epistaxis. Mucous membranes moist. Oropharynx without tonsillar hypertrophy exudate or other lesions. There is opacification of left TM without erythema. Right TM is pearly bowers and bony landmarks are visible. NECK: Supple. No adenopathy or masses. No carotid bruits or JVD CHEST: Clear to auscultation. No respiratory distress. No wheezes rales or rhonchi HEART: Regular rate and rhythm. No murmur heard. Normal peripheral pulses. ABDOMEN: Soft, nontender, nondistended, normal active bowel sounds. EXTREMITIES: Normal range of motion. No edema. SKIN: Warm, dry, no rash. NEURO: No focal deficits. Alert and oriented x3. PSYCH: Normal mood and affect. Course Course Emergency Course: THIS IS A 23-YEAR-OLD FEMALE WHO PRESENTED FOR EVALUATION OF SICK SYMPTOMS. COVID, STREP, I
== END 2023-06-09 15:30 | disposition home or self-care (01) ==
PROVIDERS: Emergency Provider Nurse Practitioner; PCP Emergency Medicine
DX: J06.9 Acute upper respiratory infection, unspecified (principal); Z20.822 Contact with and (suspected) exposure to COVID-19; J45.909 Unspecified asthma, uncomplicated
CPT/HCPCS: 87081; 87426; 87804; 87880; 99213; G0463

== ENCOUNTER 2023-08-21 06:58 | Emergency (ER) | payer OTHER, SELFPAY ==
--- NOTE | ~2023-08-21 | US_ITS ---
Limited Abdominal Sonogram: Real-time sonographic imaging of the right upper quadrant was performed. Clinical History: Right upper quadrant pain Findings: The liver appears normal with no evidence of mass lesion or bile duct dilatation. Main por yoseph vein demonstrates normal direction of flow. The gallbladder is well distended, and demonstrates g allbladder sludge. No discrete stone or wall thickening evident. The common bile duct measures 2 mm. The visualized pancreas, aorta, and IVC are unremarkable. Impression: Gallbladder sludge. Reviewed, dictated and finalized at location M. Impression: Gallbladder sludge.
[2023-08-21 07:07] VITALS: BP 135/91; PULSE 72; RESP 14; O2SAT 100
[2023-08-21 07:39] LABS: Appearance Urine Clear (Clear); Bacteria Urine None Seen /hpf; Bilirubin Urine Negative (Negative); Blood Urine Negative (Negative); Color Urine Yellow (Yellow); Glucose Urine UA Negative (Negative); Ketones Urine Negative (Negative); Leukocyte Esterase Ur Negative LEU/UL (Negative); Nitrate Urine Negative (Negative); Non Pathogenic Casts 0-2; Protein Urine Trace mg/dL (Negative); RBC Urine 0-2 /hpf (0-2); Squamous Epithelial Cell Urine None Seen /hpf (Few); WBC Urine 0-5 /hpf (0-3)
[2023-08-21 07:40] LABS: Basophils Absolute Auto 0.1 K/mm3 (0.0-0.1); Basophils Percent Auto 0.5 % (0.2-1.2); Eosinophils Absolute Auto 0.2 K/mm3 (0-0.3); Hematocrit 41.7 % (37.0-47.0); Hemoglobin 14.1 g/dL (12.0-15.0); Immature Granulocyte Absolute 0.27 K/mm3 (0.00-0.031); Immature Granulocyte Percent A 1.5 % (0-0.5); Lymphocytes Absolute Auto 4.56 K/mm3 (0.9-3.2); Lymphocytes Percent Auto 25.6 % (18.3-44.2); Mean Corpuscular HGB Conc 33.8 g/dl (32-36); Mean Corpuscular Hemoglobin 27.6 pg (26-34); Mean Corpuscular Volume 81.6 fl (80-100); Mean Platelet Volume 10.2 fl (7.4-10.4); Monocytes Absolute Auto 0.8 K/mm3 (0.1-0.6); Monocytes Percent Auto 4.7 % (2.6-8.5); Neutrophils Absolute Auto 11.9 K/mm3 (1.3-6.7); Neutrophils Percent Auto 66.7 % (45.5-73.1); Platelet Count Result 359 k/mm3 (150-375); Red Blood Count 5.11 M/mm3 (4.2-5.4); Red Cell Distribution Width 15.3 % (11.5-14.5); White Blood Count 17.8 K/mm3 (4.5-10.0)
[2023-08-21] MEDS: ONDANSETRON INJ 4 MG/2 ML VIAL IV PUSH (07:40)
[2023-08-21] MEDS: SODIUM CHLORIDE 0.9% IV 1,000 ML 999 ML IV CONT (07:40)
[2023-08-21] MEDS: KETOROLAC 30 MG/ML VIAL (*BKC) 15 MG IV PUSH (07:40)
[2023-08-21] MEDS: fentaNYL CITRATE INJ (*CRX) 100 MCG/2 ML VIAL 50 MCG IV PUSH (07:41)
[2023-08-21 07:42] LABS: Alanine Aminotransferase 17 U/L (6-35); Alkaline Phosphatase 86 U/L (38-126); Anion Gap 9 mmol/L (4-12); Aspartate Amino Transferase 20 U/L (14-36); Bilirubin,Total 0.4 mg/dL (0.2-1.3); Blood Urea Nitrogen 15 mg/dL (7-17); Calcium 9.1 mg/dL (8.4-10.2); Carbon Dioxide 24 mmol/L (22-30); Chloride 108 mmol/L (98-107); Estimated CRCL calculation 142 ml/min; Estimated Glomerular Filt Rate > 60; Glucose 90 mg/dL (65-110); Lipase 64 U/L (23-300); Potassium 3.2 mmol/L (3.4-5.0); Sodium 141 mmol/L (137-145)
--- NOTE | 2023-08-21 07:47 | ED.ABDPAIN ---
HPI - Abdominal Pain General Chief Complaint: Abdominal Pain Stated Complaint: abd/back pain Time Seen by Provider: 08/21/23 07:18 History of Present Illness HPI narrative: Pt presents with epigastric and ruq abdominal pain onset about 0400 this morning. Pt is nauseated but not vomiting. Pt had fried chicken last night. Pt still has her GB. Pt denies diarrhea or fever. Related Data Home Medications Medication Instructions Recorded Confirmed prazosin 5 mg capsule See Rx Instructions .Route .COMPLEX 01/26/20 06/09/23 aripiprazole 20 mg tablet 20 mg DAILY 05/27/22 06/09/23 buspirone 10 mg tablet 10 mg TID 05/27/22 06/09/23 risperidone 3 mg tablet 3 mg BID 05/27/22 06/09/23 venlafaxine 75 mg capsule,extended 75 mg PO DAILY 05/27/22 06/09/23 release 24 hr metoprolol succinate 100 mg mg PO 06/09/23 tablet,extended release 24 hr Allergies Allergy/AdvReac Type Severity Reaction Status Date / Time Iodinated Contrast Media Allergy Severe Hives/RED Verified 06/09/23 14:19 FACE bupropion [From Wellbutrin] Allergy Intermediate Unknown Verified 06/09/23 14:19 Review of Systems Review of Systems: All systems reviewed & are unremarkable except as noted in HPI and below PMFSH Past Medical History Medical History Abscess of coccyx (~2015) Asthma Migraine Rapid heartbeat Rash Vaginal bleeding between periods Vaginal infection Surgical History Surgical History Hx of tonsillectomy (~2011) Family History Family History Father High cholesterol Bipolar 1 disorder Depression Mother Bipolar 1 disorder Depression Anxiety OCD (obsessive compulsive disorder) Social History Social History Social History: Patient drinks 2 cups of caffeine daily Smoking status: Never smoker Alcohol intake: never Substance use: never Substance use type: does not use Living arrangements: with family Occupation/Education: other Additional occupation/education comments: Disabled Exam Const: General: healthy appearing and no acute distress Nutritional Appearance: well nourished Orientation/consciousness: patient oriented x3 Limitations: no limitations Resp: Effort & Inspection: normal respiratory effort Auscultation: clear to auscultation bilaterally Cardio: Rate: regular rate Rhythm: regular rhythm GI: GI Palp: Yes Soft to palpation and Yes Tenderness to palpation present (GI) (epigastric and ruq) Auscultation: normal bowel sounds Back/Spine/Pelvis: Back: no CVA tenderness Skin: General skin exam: normal color Rashes: no rashes Wounds: no wounds Neuro: General: patient oriented x3, moves all extremities, no meningeal signs, no focal motor deficits and CN's II-XI intact bilaterally Speech: normal speech Extrem: General: normal to inspection and no clubbing, cyanosis or edema Psych: Mental Status: mental status grossly normal Affect: normal affect Attitude: cooperative Course Vital Signs Vital signs: Vital Signs Pulse Rate 72 08/21/23 07:07 Respiratory Rate 14 08/21/23 07:07 Blood Pressure 135/91 H 08/21/23 07:07 Pulse Oximetry 100 08/21/23 07:07 Oxygen Delivery Room Air 08/21/23 07:07 Pulse Rate 78 08/21/23 09:20 Respiratory Rate 14 08/21/23 09:20 Blood Pressure 136/84 08/21/23 09:20 Pulse Oximetry 98 08/21/23 09:20 Oxygen Delivery Room Air 08/21/23 07:07 MDM - Abdominal Pain MDM Narrative Medical decision making narrative: Pt presents with epigastric/ruq abdominal pain after eating fried chicken last night. Will order labs and GB sono. Pt says she may be so will check hcg and ua. Will treat pain and nausea. Pt feels much better after meds. pt has GB sludge on sono but no wall thickening.
[2023-08-21 07:49] LABS: Specific Grav Ur 1.035 (1.001-1.035)
[2023-08-21 07:50] LABS: Add Urine Microscopic? YES
[2023-08-21 09:20] VITALS: BP 136/84; PULSE 78; RESP 14; O2SAT 98
== END 2023-08-21 09:21 | disposition home or self-care (01) ==
PROVIDERS: Emergency Provider Emergency Medicine; PCP Emergency Medicine
DX: R93.2 Abnormal findings on diagnostic imaging of liver and biliary tract (principal); J45.909 Unspecified asthma, uncomplicated; Z79.899 Other long term (current) drug therapy
CPT/HCPCS: 36415; 76705; 80053; 81001; 81025; 83690; 85025; 96361; 96374; 96375; 99284; J1885; J2405; J3010; J7030

== ENCOUNTER 2023-08-25 13:47 | Observation (INO) | payer OTHER, SELFPAY ==
--- NOTE | ~2023-08-25 | CT_ITS ---
EXAMINATION: CT abdomen pelvis wo con DATE: 08/25/2023 17:11 INDICATION: Right upper quadrant abdominal pain. TECHNIQUE: Computed tomography (CT) of the abdomen and pelvis was performed without intravenous contr ast. Automated exposure control and iterative reconstruction technique were employed. The dose-length product was 1669.24 mGy-cm. COMPARISON: Ultrasound 08/21/2023 FINDINGS: The visualized portions of the lung bases demonstrate mild atelectasis. No pleural effusion . The heart size is normal. No pericardial effusion. The liver is normal. There is mild splenomegaly, which may secondary to obesity. The gallbladder is distended. Gallbladder wall thickening is noted. There is fat stranding around the gallbladder. The pancreas, adrenal glands, and kidneys are normal. There are no dilated loops of bowel. The appendix is normal. There are no pathologically enlarged lym ph nodes. There is no free intraperitoneal fluid. There are Schmorl's nodes at multiple levels in the spine. IMPRESSION: 1. Acute cholecystitis. Reviewed, dictated and finalized at location E. IMPRESSION: 1. Acute cholecystitis.
[2023-08-25 13:52] VITALS: BP 130/82; PULSE 92; RESP 16; TEMP 37; O2SAT 97
[2023-08-25 15:05] LABS: Basophils Absolute Auto 0.1 K/mm3 (0.0-0.1); Basophils Percent Auto 0.6 % (0.2-1.2); Eosinophils Absolute Auto 0.4 K/mm3 (0-0.3); Eosinophils Percent Auto 2.2 % (0-4.4); Hemoglobin 12.7 g/dL (12.0-15.0); Immature Granulocyte Absolute 0.09 K/mm3 (0.00-0.031); Immature Granulocyte Percent A 0.5 % (0-0.5); Lymphocytes Absolute Auto 4.24 K/mm3 (0.9-3.2); Lymphocytes Percent Auto 23.8 % (18.3-44.2); Mean Corpuscular HGB Conc 33.4 g/dl (32-36); Mean Corpuscular Hemoglobin 27.5 pg (26-34); Mean Corpuscular Volume 82.3 fl (80-100); Mean Platelet Volume 10.2 fl (7.4-10.4); Monocytes Percent Auto 5.7 % (2.6-8.5); Neutrophils Percent Auto 67.2 % (45.5-73.1); Platelet Count Result 380 k/mm3 (150-375); Red Blood Count 4.62 M/mm3 (4.2-5.4); Red Cell Distribution Width 15.3 % (11.5-14.5); White Blood Count 17.8 K/mm3 (4.5-10.0)
[2023-08-25 15:15] LABS: Alanine Aminotransferase 11 U/L (6-35); Albumin Level 3.9 g/dL (3.5-5.1); Alkaline Phosphatase 97 U/L (38-126); Anion Gap 7 mmol/L (4-12); Aspartate Amino Transferase 12 U/L (14-36); Bilirubin,Total 1.1 mg/dL (0.2-1.3); Blood Urea Nitrogen 6 mg/dL (7-17); Calcium 8.9 mg/dL (8.4-10.2); Carbon Dioxide 28 mmol/L (22-30); Chloride 103 mmol/L (98-107); Estimated CRCL calculation 152 ml/min; Estimated Glomerular Filt Rate > 60; Glucose 98 mg/dL (65-110); Lipase 34 U/L (23-300); Potassium 3.2 mmol/L (3.4-5.0); Sodium 138 mmol/L (137-145)
--- NOTE | 2023-08-25 15:39 | ED.ABDPAIN ---
HPI - Abdominal Pain General Chief Complaint: Abdominal Pain <BRIANA Burch Last Filed: 08/25/23 18:35> Stated Complaint: ruq pain <Lavinia Bai PA-C - Last Filed: 08/25/23 18:35> Time Seen by Provider: 08/25/23 14:51 <Lavinia Bai PA-C - Last Filed: 08/25/23 18:35> Source: patient <BRIANA Burch Last Filed: 08/25/23 18:35> Mode of arrival: ambulatory <BRIANA Burch Last Filed: 08/25/23 18:35> Limitations: no limitations <BRIANA Burch Last Filed: 08/25/23 18:35> History of Present Illness HPI narrative: This is a 23 year old female that presents to the ER for right upper quadrant abdominal pain. Ongoing over the last couple of days. Associated with nausea and vomiting. Reports she has not been able to eat much. She was evaluated for this in the ER a couple of days ago, was supposed to follow up with general surgery outpatient. She has not been able to control her pain at home which prompted her to be seen again. Denies fevers. <BRIANA Burch Last Filed: 08/25/23 18:35> Related Data Home Medications: Home Medications Medication Instructions Recorded Confirmed prazosin 5 mg capsule See Rx Instructions .Route .COMPLEX 01/26/20 06/09/23 aripiprazole 20 mg tablet 20 mg DAILY 05/27/22 06/09/23 buspirone 10 mg tablet 10 mg TID 05/27/22 06/09/23 risperidone 3 mg tablet 3 mg BID 05/27/22 06/09/23 venlafaxine 75 mg capsule,extended 75 mg PO DAILY 05/27/22 06/09/23 release 24 hr metoprolol succinate 100 mg mg PO 06/09/23 tablet,extended release 24 hr <BRIANA Burch Last Filed: 08/25/23 18:35> Allergies/Adverse Reactions: Allergies Allergy/AdvReac Type Severity Reaction Status Date / Time Iodinated Contrast Media Allergy Severe Hives/RED Verified 06/09/23 14:19 FACE bupropion [From Wellbutrin] Allergy Intermediate Unknown Verified 06/09/23 14:19 <Lavinia Bai PA-C - Last Filed: 08/25/23 18:35> Review of Systems Review of Systems: CONSTITUTIONAL: Denies fever GASTROINTESTINAL: Reports abdominal pain, nausea, vomiting <BRIANA Burch Last Filed: 08/25/23 18:35> All systems reviewed & are unremarkable except as noted in HPI and below <Lavinia Bai PA-C - Last Filed: 08/25/23 18:35> PMFSH Past Medical History Medical History: Medical History Abscess of coccyx (~2015) Asthma Migraine Rapid heartbeat Rash Vaginal bleeding between periods Vaginal infection <BRIANA Burch Last Filed: 08/25/23 18:35> Surgical History Surgical History: Surgical History Hx of tonsillectomy (~2011) <BRIANA Burch Last Filed: 08/25/23 18:35> Family History Family History: Family History Father High cholesterol Bipolar 1 disorder Depression Mother Bipolar 1 disorder Depression Anxiety OCD (obsessive compulsive disorder) <Lavinia Bai PA-C - Last Filed: 08/25/23 18:35> Social History Social History: Social History Social History: Patient drinks 2 cups of caffeine daily Smoking status: Never smoker Alcohol intake: never Substance use: never Substance use type: does not use Living arrangements: with family Occupation/Education: other Additional occupation/education comments: Disabled <BRIANA Burch Last Filed: 08/25/23 18:35> Exam Narrative: GENERAL: Well-appearing, well-nourished, and in no acute distress. HEAD: Normocephalic, atraumatic. EYES: EOMI. CHEST: Clear to auscultation. No respiratory distress. No wheezes rales or rhonchi HEART: Regular rate and rhythm. No murmur heard. Normal peripheral pulses. ABDOMEN: Soft, nondistended, normal active bowel sound
[2023-08-25] MEDS: ONDANSETRON INJ 4 MG/2 ML VIAL IV PUSH ×2 (16:18→22:06)
[2023-08-25] MEDS: MORPHINE SULFATE (*CRX) 4 MG/ML INJ IV PUSH (16:18)
[2023-08-25] MEDS: KETOROLAC 15 MG/ML VIAL (*BKC) IV PUSH ×2 (17:46→23:50)
[2023-08-25] MEDS: PIPERACILLN/TAZ 3.375GM/NS50ML 3.375 GM/50 ML BAG IVPB ×2 (17:49→23:51)
--- NOTE | 2023-08-25 18:06 | PC.NURSE ---
UNABLE TO OBTAIN BLOOD CULTURES. MAY FROM LAB WILL ATTEMPT ON FLOOR.
[2023-08-25 18:20] LABS: Appearance Urine Turbid (Clear); Bacteria Urine 4+ /hpf; Bilirubin Urine 2+ (Negative); Blood Urine Negative (Negative); Color Urine Dark Yellow (Yellow); Glucose Urine UA Negative (Negative); Ketones Urine Trace mg/dL (Negative); Leukocyte Esterase Ur 2+ LEU/UL (Negative); Need Manual Microscopic Reviewed; Nitrate Urine Positive (Negative); Protein Urine 2+ mg/dL (Negative); Squamous Epithelial Cell Urine Many /hpf (Few); WBC Clumps Urine Present /HPF; WBC Urine >100 /hpf (0-3)
[2023-08-25 18:23] LABS: Specific Grav Ur 1.035 (1.001-1.035); Transitional Epi Cells Urine Few /hpf (None Seen)
[2023-08-25 18:24] LABS: Add Urine Microscopic? YES
--- NOTE | 2023-08-25 18:26 | ADMGEN ---
This patient, Kaylee Evans, was admitted to [facility] Surg Room 319-01. Patient/family oriented to hospital policies and general routines including ID bracelet, bed and alarms, visiting hours, pain management, procedures, bathroom and other care routines, personal items, smoking policy, room service/diet, and visiting hours. Information on how to activate the Rapid Response Team has been discussed. Patient/Family are encouraged to report perceived risks to care and to ask questions if they do not understand what they are told or what they should do.
[2023-08-25 18:33] VITALS: BMI 54.1
[2023-08-25] MEDS: SODIUM CHLORIDE 0.9% IV 1,000 ML 125 ML IV CONT (18:33)
[2023-08-25 18:54] VITALS: BP 135/84; PULSE 98; RESP 18; TEMP 36.2; O2SAT 98
--- NOTE | 2023-08-25 20:51 | PM.IMHP ---
H&P: HPI History of Present Illness Date/Time: 08/25/23 20:30 Chief Complaint: Abdominal pain. Narrative: This is a morbidly obese 23-year-old female with hypertension, asthma, anxiety, depression, bipolar disorder, posttraumatic stress disorder, and schizophrenia who presented to the emergency department for evaluation of abdominal pain. The patient provides the following history. She gives a 3 day history of severe aching right upper quadrant pain radiating through to the back which started not long after eating fried chicken for dinner. She was seen in the ED in the morning of 08/21/2023 and an ultrasound of the right upper quadrant showed gallbladder sludge. She improved with IV fluids, antiemetics, and pain medications and was discharged with follow-up instructions to see Dr. Shine in the office. Unfortunately her pain returned the following day and she has been hesitant to eat as it makes the pain worse. Associated symptoms include nausea and vomiting as well as hot and cold sweats. She has not had a documented fever and denies vomiting today. No dysuria. In the ED: She was afebrile on arrival with stable vital signs. Labs were significant for WBC count of 17.8, potassium 3.2, AST 12, lipase 34. Urine was nitrate and leukocyte esterase positive with 4+ bacteria, and greater than 100 WBC however was contaminated with many squamous cells. CT of the abdomen and pelvis showed acute cholecystitis. She was given antiemetics, analgesics, and has been started on Zosyn. She is being admitted in this setting for supportive care and surgery consultation. Review of Systems Review of Systems: 12 systems were reviewed and are negative except for as per HPI. FORMERLY [facility] Past Medical History Medical History (Updated 08/25/23 @ 21:10 by Lor Burton PA-C) Asthma Bipolar disorder Depression with anxiety Hypertension Migraine Morbid obesity Posttraumatic stress disorder Schizophrenic catalepsy Surgical History Surgical History (Updated 08/25/23 @ 21:04 by Lor Burton PA-C) History of tonsillectomy and adenoidectomy (2011) Family History Family History Father High cholesterol Bipolar 1 disorder Depression Mother Bipolar 1 disorder Depression Anxiety OCD (obsessive compulsive disorder) Social History Social History (Updated 08/25/23 @ 21:05 by Lor Burton PA-C) Social History: Surrogate medical decision maker: Luna Crawford, mother. Code status: Full code. Smoking status: Never smoker Alcohol intake: never Substance use: never Substance use type: does not use Do You Feel Safe in your Home?: Yes Lack of Transportation: No Lack of Food: Never True Current Housing: I Have Housing Concerned About Future Housing: No Difficulty Paying Gas/Electric Bills: No Difficulty Paying for Meds: No Currently Unemployed: No Education: Don't Know Difficulty w/ Childcare or Family Care: No Living arrangements: with family Occupation/Education: other Additional occupation/education comments: Disabled Spiritual care concerns: No Meds Home Medications and Allergies Home Medications Medication Instructions Recorded Confirmed Type prazosin 5 mg capsule See Rx Instructions .Route .COMPLEX 01/26/20 08/25/23 History metoprolol succinate 200 mg See Rx Instructions .Route 04/27/22 08/25/23 Rx tablet,extended release 24 hr .COMPLEX #90 tabs buspirone 10 mg tablet 10 mg TID 05/27/22 08/25/23 History venlafaxine 75 mg capsule,extended 175 mg PO DAILY 05/27/22 08/25/23 History release 24 hr docusate sodium 100 mg capsule 100 mg PO DAILY 08/25/23 08/25/23 History (Stool Softener) fluticasone 250 mcg-salmeterol 50 See Rx Instructions .Route 08/25/23 08/25/23 History mcg/dose blistr powdr for .COMPLEX PRN sob inhalation (Advair Diskus) lithium carbonate 450 mg 450 mg PO HS 08/25/23 08/25/23 History tablet,extended re
[2023-08-25] MEDS: POTASSIUM CHLORIDE 20 MEQ ER TABLET 40 MEQ PO (21:00)
[2023-08-25] MEDS: MORPHINE SULFATE (*CRX) 2 MG/ML INJ IV PUSH (21:01)
[2023-08-25 21:07] VITALS: BP 138/84; PULSE 95; RESP 18; TEMP 37.1; O2SAT 98
--- NOTE | 2023-08-25 21:13 | ECG_ITS ---
Test Date: 2023-08-25 21:25:04 Measurements Intervals [place] Rate: 96 P: 43 CA: 188 QRS: 42 QRSD: 86 T: 25 QT: 358 QTc: 454 Interpretive Statements SINUS RHYTHM NONSPECIFIC T-WAVE ABNORMALITY- ANTERIOR LEADS BASELINE ARTIFACT- II, III, AVR, AVF BORDERLINE ECG No previous ECG available for comparison Electronically Signed On 08-26-2023 06:05:10 CDT by Chip Pierre D.O.
[2023-08-25] MEDS: PRAZOSIN HCL 5 MG CAPSULE 10 MG BY MOUTH (22:06)
[2023-08-25] MEDS: traZODone HCL 50 MG TABLET PO (22:06)
[2023-08-25] MEDS: busPIRone HCL 10 MG TABLET BY MOUTH (22:06)
[2023-08-25 22:40] LABS: Lithium < 0.2 mmol/L (0.6-1.2)
[2023-08-26] VITALS (7 sets, daily range): BP systolic 115–132; BP diastolic 70–83; PULSE 16–97; RESP 16–18; TEMP 36.2–37.3; O2SAT 94–98
[2023-08-26] MEDS: SODIUM CHLORIDE 0.9% IV 1,000 ML 125 ML IV CONT (02:55)
[2023-08-26] MEDS: MORPHINE SULFATE (*CRX) 2 MG/ML INJ IV PUSH ×6 (03:49→20:53)
--- NOTE | 2023-08-26 03:54 | PC.NURSE ---
Pt's boyfriend at bed side throughout this shift. He is answering all questions for pt and not allowing her to answer for herself. Pt's boyfriend asking for food, and medication from this nurse. Gave him a snack and explained to him that we cannot give him any medication, because he is not our pt. Pt's boyfriend stated he plans to stay here with pt until she leaves, since he has no transportation and is unwilling to leave pt by herself. Pt allowing him to speak for her and barely talking even though she is A&O x 4. He states they are , however also states they have known each other anywhere from a month to a yr and half with changing stories (they are not ). Pt's boyfriend has been walking barefoot to the nurses station requesting things for himself. He also stated, I am medical and if help is needed in the ER let me know so I can help . He has been told to stay in her room, since he was told he could stay the night with pt by previous shift. Allowing him to stay the night with pt, may need to be reevaluated.
[2023-08-26] MEDS: PIPERACILLN/TAZ 3.375GM/NS50ML 3.375 GM/50 ML BAG IVPB ×3 (05:59→17:41)
--- NOTE | 2023-08-26 08:56 | PM.IMPN ---
Progress Note: A&P Assessment and Plan (1) Acute cholecystitis: Code(s): K81.0 - Acute cholecystitis Status: Acute Assessment and Plan: Right upper quadrant pain with associated nausea, vomiting subjective fever chills. CT of abdomen and pelvis shows acute cholecystitis. White blood cell count 17, afebrile Patient was started on Zosyn Normal saline 100 mL/hour Pain meds p.r.n. morphine Zofran for nausea Blood cultures pending Lactic 1.1 NPO diet Surgery was consulted, recs appreciated (2) Hypokalemia: Code(s): E87.6 - Hypokalemia Status: Acute Assessment and Plan: Potassium 3.2 on admission. Patient received 40 mg of fluids over placement. Repeat BMP this morning, add Mag Monitor electrolytes daily Potassium level goal greater than 3.5, magnesium greater than 1.6 (3) Abnormal urinalysis: Code(s): R82.90 - Unspecified abnormal findings in urine Status: Acute Assessment and Plan: UA concerning for UTI positive nitrate positive leukocytes +2, white blood cell greater than 100 with clumps, +4 bacteria. Poor specimen is many squamous cells present. Urine culture pending Patient on Zosyn for acute cholecystitis which should cover UTI (4) Hypertension: Code(s): I10 - Essential (primary) hypertension Status: Acute Assessment and Plan: On Metoprolol succinate 200 mg daily Blood pressure reviewed and controlled continue to monitor (5) Asthma: Code(s): J45.909 - Unspecified asthma, uncomplicated Status: Acute Assessment and Plan: No acute respiratory distress. Continue advair BID Plan Feeding:NPO Analgesia:morphine prn Thromboembolic prophylaxis: scd Lines: PIV Antibiotics:zosyn Disposition: surgery consulted, lap choley? Advance Care Plan I have confirmed that the patient's Advanced Care Plan is present, code status is documented, or surrogate decision maker is listed in patient medical record.: Yes Medication Reconciliation I have utilized all available resources to obtain, update and review the patients current medications (includes all prescriptions, OTC, herbals, cannabis, and nutritional supplements).: Yes Subjective Date/time seen: 08/26/23 08:56 Interval history: This is a morbidly obese 23-year-old female with hypertension, asthma, anxiety, depression, bipolar disorder, posttraumatic stress disorder, and schizophrenia who presented to the emergency department for evaluation of abdominal pain. 08/25: Patient is seen resting in bed with her parents at bedside. She appears as though she does not feel well. She states she is having right upper quadrant abdominal pain that is radiating to her back with nausea. She states she has not been able to eat or drink much for the last 2 weeks because of her abdominal pain and nausea. Because of this she has not been taking medications as prescribed. She has an issue with chronic constipation is usually dependent upon taking Colace daily. Well she is still passing gas she has not had a bowel movement for 2 weeks. She does report dysuria and foul-smelling urine. Review of Systems Review of Systems: 12 systems were reviewed and are negative except for as per HPI. All systems reviewed & are unremarkable except as noted in HPI and below Exam Narrative: General: well appearing, appears stated age. HEENT: normocephalic, atraumatic. Mucous membranes moist. EOMI, PERRLA, bilateral sclera anicteric, no conjunctival injection. Neck supple without JVD, lymphadenopathy, or bruit. Respiratory: clear to auscultation bilaterally. No rales/rhonic/wheezes. Cardiovascular: Regular rate and rhythm, normal S1-S2 upon auscultation. No murmurs, rubs, or clicks. PMI is nondisplaced, capillary refill less than 3 second. Abdomen: Soft, round, no pulsatile masses, nondistended and nontender. No rebound, no guarding. No CVA tenderness, no hepatosplenomegaly. Frederick
[2023-08-26 10:01] LABS: Basophils Absolute Auto 0.1 K/mm3 (0.0-0.1); Basophils Percent Auto 0.5 % (0.2-1.2); Eosinophils Absolute Auto 0.3 K/mm3 (0-0.3); Eosinophils Percent Auto 2.7 % (0-4.4); Hematocrit 33.2 % (37.0-47.0); Hemoglobin 10.7 g/dL (12.0-15.0); Immature Granulocyte Absolute 0.04 K/mm3 (0.00-0.031); Immature Granulocyte Percent A 0.3 % (0-0.5); Lymphocytes Absolute Auto 3.39 K/mm3 (0.9-3.2); Lymphocytes Percent Auto 27.5 % (18.3-44.2); Mean Corpuscular HGB Conc 32.2 g/dl (32-36); Mean Corpuscular Volume 83.8 fl (80-100); Mean Platelet Volume 10.2 fl (7.4-10.4); Monocytes Absolute Auto 0.7 K/mm3 (0.1-0.6); Monocytes Percent Auto 5.4 % (2.6-8.5); Neutrophils Absolute Auto 7.9 K/mm3 (1.3-6.7); Neutrophils Percent Auto 63.6 % (45.5-73.1); Platelet Count Result 307 k/mm3 (150-375); Red Blood Count 3.96 M/mm3 (4.2-5.4); Red Cell Distribution Width 15.3 % (11.5-14.5); White Blood Count 12.3 K/mm3 (4.5-10.0)
[2023-08-26 10:11] LABS: INR 1.1; Prothrombin Time 14.8 Seconds (11.1-14.7)
[2023-08-26 10:12] LABS: Partial Thromboplastin Time 34.3 Seconds (22.3-36.8)
[2023-08-26 10:14] LABS: Alanine Aminotransferase 12 U/L (6-35); Albumin Level 3.5 g/dL (3.5-5.1); Alkaline Phosphatase 99 U/L (38-126); Anion Gap 6 mmol/L (4-12); Aspartate Amino Transferase 14 U/L (14-36); Bilirubin,Total 1.4 mg/dL (0.2-1.3); Blood Urea Nitrogen 5 mg/dL (7-17); Calcium 8.8 mg/dL (8.4-10.2); Carbon Dioxide 26 mmol/L (22-30); Chloride 108 mmol/L (98-107); Estimated CRCL calculation 166 ml/min; Estimated Glomerular Filt Rate > 60; Glucose 91 mg/dL (65-110); Potassium 3.4 mmol/L (3.4-5.0); Sodium 140 mmol/L (137-145)
[2023-08-26] MEDS: ONDANSETRON INJ 4 MG/2 ML VIAL IV PUSH ×2 (10:14→18:34)
[2023-08-26] MEDS: busPIRone HCL 10 MG TABLET BY MOUTH ×3 (10:46→17:40)
[2023-08-26] MEDS: METOPROLOL SUCCINATE EXT REL 100 MG TABCR 200 MG BY MOUTH (10:46)
[2023-08-26] MEDS: DOCUSATE SODIUM 100 MG CAPSULE PO (10:46)
--- NOTE | 2023-08-26 11:07 | PM.CNGS ---
Assessment and Plan Assessment and plan (1) Acute cholecystitis: Code(s): K81.0 - Acute cholecystitis Status: Acute Assessment and Plan: The patient presents with RUQ pain and nausea/vomiting that she has been dealing with on and off for [address] scan of the abdomen and pelvis showed acute cholecystitis. RUQ US from 08/21/23 when she was in the ED before showed gallbladder sludge. No gallstones. She continues to have RUQ pain and nausea this morning. WBC count was 17,000 on admission and down to 12,000 today. Continue IV Zosyn, IV fluids, and keep her NPO for now. Will discuss the case with Dr. Nick in regards to options for surgical management. She has increased risks of having to convert to an open cholecystectomy given her morbid obesity. Will decide on further care after discussing with Dr. Nick. I will also adjust her pain medication to help improve pain control. (2) Morbid obesity with BMI of 50.0-59.9, adult: Code(s): E66.01 - Morbid (severe) obesity due to excess calories; Z68.43 - Body mass index [BMI] 50.0-59.9, adult Status: Acute Assessment and Plan: Increases risks for surgery and increased risk for having to convert to an open procedure. (3) Acute UTI: Code(s): N39.0 - Urinary tract infection, site not specified Status: Acute Assessment and Plan: UA suggests urinary tract infection. Urine culture pending. Currently on IV Zosyn. (4) Psychiatric illness: Code(s): F99 - Mental disorder, not otherwise specified Status: Acute (5) HTN (hypertension): Qualifiers: Hypertension type: unspecified Qualified Code(s): I10 - Essential (primary) hypertension Code(s): I10 - Essential (primary) hypertension Status: Acute (6) Constipation: Code(s): K59.00 - Constipation, unspecified Status: Acute Assessment and Plan: Patient has not had a bowel movement reportedly since 08/10. There is stool throughout the colon on her CT. Will try to stimulate her bowels depending on timing of possible surgery. (7) Asthma: Code(s): J45.909 - Unspecified asthma, uncomplicated Status: Acute Plan I have discussed the patient's case and plan of care with Dr. Nick. Thank you for allowing us to see the patient in consultation and we will continue to follow along with you. History of Present Illness Consult details Consult date: 08/26/23 Reason for consult: other (Acute cholecystitis) Requesting physician: Lavinia Bai PA-C Narrative: This is a 23-year-old morbidly obese woman with hypertension, asthma, anxiety, depression, bipolar disorder, PTSD, and schizophrenia who presented to the emergency department for evaluation yesterday. She is seen with her , sister, and parents at the bedside. Although she is oriented x3, her family helps assist in providing history. She apparently has been feeling unwell for the past 2 weeks. She reports poor appetite, nausea, vomiting, right upper quadrant abdominal pain, and constipation. She has been having pain off and on for the past 2 weeks. She cannot tell me if this is aggravated by eating. She reports not eating much over the last 2 weeks. She cannot recall if her initial pain occurred after a fatty meal. The first few days she was vomiting, but she has not been vomiting the past week. She also reports being concerned about constipation, as she had movement since August 10. Her parents report that she has barely been up and out of bed over the past 2 weeks. She was seen in the ED on 08/21/2023 for right upper quadrant abdominal pain after eating fried chicken per the ED note. At that time [place] [address], mild hypokalemia, and normal LFTs. Right upper quadrant ultrasound showed gallbladder sludge. Her symptoms improved and she was discharged home with follow-up as an outpatient with Dr. Shine. The patient reports her symptoms persisted at home and she w
[2023-08-26] MEDS: SODIUM CHLORIDE 0.9% IV 1,000 ML 100 ML IV CONT (12:35)
[2023-08-26 13:20] LABS: Pregnancy On Board Control Positive; Urine Pregnancy Test Negative
[2023-08-26 19:29] LABS: Iron 36 ug/dL (37-170)
[2023-08-26 19:38] LABS: Percent Iron Saturation 20 % (20-50)
[2023-08-26] MEDS: traZODone HCL 50 MG TABLET PO (20:53)
[2023-08-26] MEDS: PRAZOSIN HCL 5 MG CAPSULE 10 MG BY MOUTH (20:53)
[2023-08-26] MEDS: FLUTICASONE/SALMETEROL 230-21 MCG INHALER 1 PUFF 2 PUFF INHALATION (21:24)
[2023-08-26] MEDS: ACETAMINOPHEN 325 MG TABLET 650 MG PO (22:19)
[2023-08-26] MEDS: KETOROLAC 15 MG/ML VIAL (*BKC) IV PUSH (22:19)
[2023-08-27] MEDS: SODIUM CHLORIDE 0.9% IV 1,000 ML 100 ML IV CONT ×3 (00:29→20:32)
[2023-08-27] MEDS: PIPERACILLN/TAZ 3.375GM/NS50ML 3.375 GM/50 ML BAG IVPB ×5 (00:30→23:28)
[2023-08-27] MEDS: HYDROcodone/acetaminophen (*CRX) 5-325 MG TABLET 1 TAB PO ×3 (03:45→18:15)
[2023-08-27] MEDS: ONDANSETRON INJ 4 MG/2 ML VIAL IV PUSH ×3 (03:45→15:03)
[2023-08-27] MEDS: polyethylene glycoL 3350 17 GM POWD.PACK PO (05:39)
[2023-08-27] MEDS: MORPHINE SULFATE (*CRX) 2 MG/ML INJ IV PUSH ×2 (05:40→09:05)
[2023-08-27 06:00] VITALS: BP 123/75; PULSE 85; RESP 18; TEMP 36.4; O2SAT 100
[2023-08-27 06:47] LABS: Basophils Absolute Auto 0.1 K/mm3 (0.0-0.1); Basophils Percent Auto 0.5 % (0.2-1.2); Eosinophils Absolute Auto 0.4 K/mm3 (0-0.3); Eosinophils Percent Auto 3.1 % (0-4.4); Hematocrit 33.3 % (37.0-47.0); Hemoglobin 11.1 g/dL (12.0-15.0); Immature Granulocyte Absolute 0.05 K/mm3 (0.00-0.031); Immature Granulocyte Percent A 0.4 % (0-0.5); Lymphocytes Absolute Auto 2.43 K/mm3 (0.9-3.2); Lymphocytes Percent Auto 20.9 % (18.3-44.2); Mean Corpuscular HGB Conc 33.3 g/dl (32-36); Mean Corpuscular Hemoglobin 27.6 pg (26-34); Mean Corpuscular Volume 82.8 fl (80-100); Mean Platelet Volume 10.2 fl (7.4-10.4); Monocytes Absolute Auto 0.7 K/mm3 (0.1-0.6); Neutrophils Percent Auto 69.1 % (45.5-73.1); Platelet Count Result 283 k/mm3 (150-375); Red Blood Count 4.02 M/mm3 (4.2-5.4); Red Cell Distribution Width 15.4 % (11.5-14.5); White Blood Count 11.6 K/mm3 (4.5-10.0)
[2023-08-27 06:56] LABS: Alanine Aminotransferase 11 U/L (6-35); Albumin Level 3.2 g/dL (3.5-5.1); Alkaline Phosphatase 92 U/L (38-126); Anion Gap 5 mmol/L (4-12); Aspartate Amino Transferase 14 U/L (14-36); Bilirubin,Total 1.1 mg/dL (0.2-1.3); Blood Urea Nitrogen 3 mg/dL (7-17); Calcium 8.7 mg/dL (8.4-10.2); Carbon Dioxide 28 mmol/L (22-30); Chloride 106 mmol/L (98-107); Estimated CRCL calculation 191 ml/min; Estimated Glomerular Filt Rate > 60; Glucose 102 mg/dL (65-110); Magnesium 1.9 mg/dL (1.6-2.3); Potassium 3.1 mmol/L (3.4-5.0); Sodium 139 mmol/L (137-145)
[2023-08-27] MEDS: FLUTICASONE/SALMETEROL 230-21 MCG INHALER 1 PUFF 2 PUFF INHALATION (08:39)
[2023-08-27] MEDS: POTASSIUM CHLORIDE INJ 40 MEQ in SODIUM CHLORIDE 0.9% IV 500 ML 130 MEQ IVPB (08:59)
[2023-08-27] MEDS: DOCUSATE SODIUM 100 MG CAPSULE PO (09:01)
[2023-08-27 09:02] VITALS: PULSE 87
[2023-08-27] MEDS: busPIRone HCL 10 MG TABLET BY MOUTH ×3 (09:02→18:06)
[2023-08-27] MEDS: METOPROLOL SUCCINATE EXT REL 100 MG TABCR 200 MG BY MOUTH (09:02)
--- NOTE | 2023-08-27 09:32 | PM.IMPN ---
Progress Note: A&P Assessment and Plan (1) Acute cholecystitis: Code(s): K81.0 - Acute cholecystitis Status: Acute Assessment and Plan: Right upper quadrant pain with associated nausea, vomiting subjective fever chills. CT of abdomen and pelvis shows acute cholecystitis. White blood cell count 17, afebrile Patient was started on Zosyn Normal saline 100 mL/hour Pain meds p.r.n. morphine Zofran for nausea Blood cultures pending Lactic 1.1 NPO diet Surgery was consulted, recs appreciated 08/26: Clear liquid diet today. NPO at midnight. Switched her pain medication to IV Dilaudid as she states the morphine was not working. Blood cultures with no growth to date. (2) Hypokalemia: Code(s): E87.6 - Hypokalemia Status: Acute Assessment and Plan: Potassium 3.2 on admission. Patient received 40 mg of fluids over placement. Repeat BMP this morning, add Mag Monitor electrolytes daily Potassium level goal greater than 3.5, magnesium greater than 1.6 08/26: Potassium 3.1 she is receiving 40 mEq IVPB (3) Abnormal urinalysis: Code(s): R82.90 - Unspecified abnormal findings in urine Status: Acute Assessment and Plan: UA concerning for UTI positive nitrate positive leukocytes +2, white blood cell greater than 100 with clumps, +4 bacteria. Poor specimen is many squamous cells present. Urine culture pending Patient on Zosyn for acute cholecystitis which should cover UTI 08/26: Complaining of dysuria. Added Pyridium. Urine culture still pending. Discuss hygiene practices to prevent further UTI. (4) Hypertension: Code(s): I10 - Essential (primary) hypertension Status: Acute Assessment and Plan: On Metoprolol succinate 200 mg daily Blood pressure reviewed and controlled continue to monitor 2: Blood pressures reviewed and are stable. (5) Asthma: Code(s): J45.909 - Unspecified asthma, uncomplicated Status: Acute Assessment and Plan: No acute respiratory distress. Continue advair BID Plan Feeding:NPO at midnight Analgesia: Dilaudid Thromboembolic prophylaxis: scd Lines: PIV Antibiotics:zosyn Disposition: surgery consulted, milad anand tomorrow 09-23 Advance Care Plan I have confirmed that the patient's Advanced Care Plan is present, code status is documented, or surrogate decision maker is listed in patient medical record.: Yes Medication Reconciliation I have utilized all available resources to obtain, update and review the patients current medications (includes all prescriptions, OTC, herbals, cannabis, and nutritional supplements).: Yes Subjective Date/time seen: 08/27/23 09:32 Interval history: This is a morbidly obese 23-year-old female with hypertension, asthma, anxiety, depression, bipolar disorder, posttraumatic stress disorder, and schizophrenia who presented to the emergency department for evaluation of abdominal pain. 08/25: Patient is seen resting in bed with her parents at bedside. She appears as though she does not feel well. She states she is having right upper quadrant abdominal pain that is radiating to her back with nausea. She states she has not been able to eat or drink much for the last 2 weeks because of her abdominal pain and nausea. Because of this she has not been taking medications as prescribed. She has an issue with chronic constipation is usually dependent upon taking Colace daily. Well she is still passing gas she has not had a bowel movement for 2 weeks. She does report dysuria and foul-smelling urine. 08/26: Resting in bed with her mom at bedside. She continues to complain of abdominal pain in the right upper quadrant. She states that the morphine is not helping her pain. Family says surgeon came by and they were talking surgery verses IR drain. Review of Systems Review of Systems: All systems reviewed & are unremarkable except as noted in HPI and below Exam N
[2023-08-27] MEDS: KETOROLAC 30 MG/ML VIAL (*BKC) IV PUSH (10:21)
--- NOTE | 2023-08-27 12:43 | PM.PNGS ---
Progress Note: A&P Assessment and Plan (1) Acute cholecystitis: Code(s): K81.0 - Acute cholecystitis Status: Acute Assessment and Plan: CT evidence of acute cholecystitis with previous RUQ ultrasound showing gallbladder sludge. Her WBC count is trending down to 11.6 today. She continues to have abdominal pain and nausea. Discussed the case with Dr. Nick who has added her onto the surgery schedule tomorrow for robotic-assisted laparoscopic cholecystectomy. Description of the procedure, risks, benefits, alternatives, and expected recovery were discussed with the patient in detail. We discussed the risks of bile leak and bile duct injury, liver/bowel injury, bleeding, and infection. Also discussed the possibility of having to convert to an open procedure if necessary. She understands and agrees to proceed. I also discussed this with her family and yesterday. Will start her on clear liquids today and make her NPO after midnight. Potassium was 3.1 this morning and is being replaced with IV KCL. Repeat labs in the morning. (2) Acute UTI: Code(s): N39.0 - Urinary tract infection, site not specified Status: Acute Assessment and Plan: UA suggests urinary tract infection. Urine culture pending. Currently on IV Zosyn. (3) Morbid obesity with BMI of 50.0-59.9, adult: Code(s): E66.01 - Morbid (severe) obesity due to excess calories; Z68.43 - Body mass index [BMI] 50.0-59.9, adult Status: Acute (4) Constipation: Code(s): K59.00 - Constipation, unspecified Status: Acute Assessment and Plan: Will give a dulcolax suppository today if still no BM after miralax. Plan I have discussed the patient's case and plan of care with Dr. Nick. Subjective Subjective Date/Time Seen: 08/27/23 12:44 Patient reports: still having pain, nausea and afebrile Interval history: Patient reports having uncontrolled pain yesterday and receiving IV Toradol last night and this morning, which has helped with her abdominal pain. She is still having some nausea, but no vomiting. Exam Const: General: comfortable and no acute distress Orientation/consciousness: patient oriented x3 GI: Inspection: Pannus present and obesity GI Palp: Yes Soft to palpation, Yes Tenderness to palpation present (GI) (diffusely tender with more focal tenderness in the RUQ with guarding) and No Rebound tenderness present Percussion: Yes normal to percussion Auscultation: normal bowel sounds Objective Data Vital Signs Vital Signs: Vital Signs - 24 hr 08/26/23 14:00 08/26/23 14:30 08/26/23 21:25 Temperature 97.1 F L Pulse Rate 91 16 L Respiratory Rate 16 Blood Pressure 132/83 Pulse Oximetry 98 Oxygen Delivery 08/26/23 21:26 08/26/23 22:19 08/26/23 20:00 Temperature 99.1 F 99.1 F Pulse Rate 97 Respiratory Rate 18 Blood Pressure 123/80 Pulse Oximetry 94 Oxygen Delivery Room Air 08/27/23 06:00 08/27/23 09:02 Temperature 97.5 F L Pulse Rate 85 87 Respiratory Rate 18 Blood Pressure 123/75 Pulse Oximetry 100 Oxygen Delivery Intake/Output Intake/Output: Intake & Output 08/24/23 08/25/23 08/26/23 08/27/23 23:59 23:59 23:59 23:59 Intake Total 50 3440 600 Output Total 550 650 Balance 50 2890 -50 Meds/Results Medications: Active Medications Generic Name Dose Route Start Last Admin Trade Name Freq PRN Reason Stop Dose Admin Acetaminophen 650 mg 08/26/23 21:59 08/26/23 22:19 Acetaminophen 325 Mg Tablet PO 650 mg Q6H PRN Administration Mild Pain (1-3) or Fever Hydrocodone Bitart/Acetaminophen 1 tab 08/26/23 21:59 08/27/23 03:45 Hydrocodone/Acetaminophen (*Crx) 5-325 Mg Tablet PO 1 tab Q6H PRN Administration Pain Rated 4-6 Buspirone HCl 10 mg 08/25/23 21:20 08/27/23 12:40 Buspirone Hcl 10 Mg Tablet BY MOUTH 10 mg TID MEDHAT Administration Docusate Sodium 100 mg 08/26/23 09:00 08/27/23 09:01 Docusate [place]
[2023-08-27 14:00] VITALS: BP 133/72; PULSE 93; RESP 20; TEMP 35.7; O2SAT 100
[2023-08-27] MEDS: PANTOPRAZOLE SODIUM IV 40 MG VIAL IV PUSH (14:10)
[2023-08-27] MEDS: BISACODYL 10 MG SUPPOSITORY RECTAL (15:03)
[2023-08-27] MEDS: HYDROmorphone HCL INJ (*CRX) 1 MG/ML SYR 0.5 MG IV PUSH ×2 (16:20→21:39)
[2023-08-27] MEDS: PHENAZOPYRIDINE HCL 100 MG TABLET 200 MG PO (18:06)
[2023-08-27] MEDS: traZODone HCL 50 MG TABLET PO (20:32)
[2023-08-27] MEDS: PRAZOSIN HCL 5 MG CAPSULE 10 MG BY MOUTH (20:32)
[2023-08-27 22:00] VITALS: BP 138/90; PULSE 104; RESP 16; TEMP 36.3; O2SAT 94
[2023-08-28] VITALS (17 sets, daily range): BP systolic 110–170; BP diastolic 62–90; PULSE 69–101; RESP 14–20; TEMP 36.1–36.7; O2SAT 92–98
[2023-08-28] MEDS: HYDROcodone/acetaminophen (*CRX) 5-325 MG TABLET 1 TAB PO ×2 (02:04→20:24)
[2023-08-28] MEDS: PIPERACILLN/TAZ 3.375GM/NS50ML 3.375 GM/50 ML BAG IVPB ×4 (05:16→23:59)
[2023-08-28] MEDS: SODIUM CHLORIDE 0.9% IV 1,000 ML 100 ML IV CONT (05:16)
[2023-08-28 06:26] LABS: Basophils Absolute Auto 0.1 K/mm3 (0.0-0.1); Basophils Percent Auto 0.4 % (0.2-1.2); Eosinophils Absolute Auto 0.4 K/mm3 (0-0.3); Hematocrit 32.2 % (37.0-47.0); Immature Granulocyte Absolute 0.06 K/mm3 (0.00-0.031); Immature Granulocyte Percent A 0.4 % (0-0.5); Lymphocytes Absolute Auto 3.38 K/mm3 (0.9-3.2); Lymphocytes Percent Auto 23.3 % (18.3-44.2); Mean Corpuscular HGB Conc 34.2 g/dl (32-36); Mean Corpuscular Hemoglobin 27.6 pg (26-34); Mean Corpuscular Volume 80.7 fl (80-100); Mean Platelet Volume 10.2 fl (7.4-10.4); Monocytes Absolute Auto 0.6 K/mm3 (0.1-0.6); Monocytes Percent Auto 3.9 % (2.6-8.5); Platelet Count Result 345 k/mm3 (150-375); Red Blood Count 3.99 M/mm3 (4.2-5.4); Red Cell Distribution Width 15.1 % (11.5-14.5); White Blood Count 14.5 K/mm3 (4.5-10.0)
[2023-08-28 06:41] LABS: Alanine Aminotransferase 10 U/L (6-35); Albumin Level 3.2 g/dL (3.5-5.1); Alkaline Phosphatase 90 U/L (38-126); Anion Gap 5 mmol/L (4-12); Aspartate Amino Transferase 15 U/L (14-36); Bilirubin,Total 0.8 mg/dL (0.2-1.3); Calcium 8.6 mg/dL (8.4-10.2); Carbon Dioxide 25 mmol/L (22-30); Chloride 108 mmol/L (98-107); Estimated CRCL calculation 195 ml/min; Estimated Glomerular Filt Rate > 60; Glucose 97 mg/dL (65-110); Magnesium 1.9 mg/dL (1.6-2.3); Potassium 3.5 mmol/L (3.4-5.0); Sodium 138 mmol/L (137-145)
[2023-08-28] MEDS: FLUTICASONE/SALMETEROL 230-21 MCG INHALER 1 PUFF 2 PUFF INHALATION ×2 (07:03→20:16)
[2023-08-28 07:26] LABS: Blood Urea Nitrogen < 2 mg/dL (7-17)
[2023-08-28] MEDS: busPIRone HCL 10 MG TABLET BY MOUTH ×2 (08:30→17:54)
[2023-08-28] MEDS: PHENAZOPYRIDINE HCL 100 MG TABLET 200 MG PO ×2 (08:30→17:54)
[2023-08-28] MEDS: DOCUSATE SODIUM 100 MG CAPSULE PO (08:30)
[2023-08-28] MEDS: METOPROLOL SUCCINATE EXT REL 100 MG TABCR 200 MG BY MOUTH (08:30)
[2023-08-28] MEDS: ONDANSETRON INJ 4 MG/2 ML VIAL IV PUSH ×2 (08:31→18:35)
[2023-08-28] MEDS: PANTOPRAZOLE SODIUM IV 40 MG VIAL IV PUSH (08:31)
[2023-08-28] MEDS: HYDROmorphone HCL INJ (*CRX) 1 MG/ML SYR 0.5 MG IV PUSH (08:32)
--- NOTE | 2023-08-28 09:12 | PM.IMPN ---
Progress Note: A&P Assessment and Plan (1) Acute cholecystitis: Code(s): K81.0 - Acute cholecystitis Status: Acute Assessment and Plan: Right upper quadrant pain with associated nausea, vomiting subjective fever chills. CT of abdomen and pelvis shows acute cholecystitis. White blood cell count 17, afebrile Patient was started on Zosyn Normal saline 100 mL/hour Pain meds p.r.n. morphine Zofran for nausea Blood cultures pending Lactic 1.1 NPO diet Surgery was consulted, recs appreciated 08/26: Clear liquid diet today. NPO at midnight. Switched her pain medication to IV Dilaudid as she states the morphine was not working. Blood cultures with no growth to date. 08/27- robotic assisted lap ying, poss open today (2) Hypokalemia: Code(s): E87.6 - Hypokalemia Status: Acute Assessment and Plan: Potassium 3.2 on admission. Patient received 40 mg of fluids over placement. Repeat BMP this morning, add Mag Monitor electrolytes daily Potassium level goal greater than 3.5, magnesium greater than 1.6 08/26: Potassium 3.1 she is receiving 40 mEq IVPB (3) Abnormal urinalysis: Code(s): R82.90 - Unspecified abnormal findings in urine Status: Acute Assessment and Plan: UA concerning for UTI positive nitrate positive leukocytes +2, white blood cell greater than 100 with clumps, +4 bacteria. Poor specimen is many squamous cells present. Urine culture pending Patient on Zosyn for acute cholecystitis which should cover UTI 08/26: Complaining of dysuria. Added Pyridium. Urine culture still pending. Discuss hygiene practices to prevent further UTI. (4) Hypertension: Code(s): I10 - Essential (primary) hypertension Status: Acute Assessment and Plan: On Metoprolol succinate 200 mg daily Blood pressure reviewed and controlled continue to monitor 08/26: Blood pressures reviewed and are stable. (5) Asthma: Code(s): J45.909 - Unspecified asthma, uncomplicated Status: Acute Assessment and Plan: No acute respiratory distress. Continue advair BID Plan Feeding:NPO at midnight Analgesia: Dilaudid Thromboembolic prophylaxis: scd Lines: PIV Antibiotics:zosyn Disposition: surgery consulted, lap choley tomorrow 7-30 Time Spent With Patient Time with patient: 25 - 35 minutes Subjective Date/time seen: 08/28/23 09:12 Interval history: This is a morbidly obese 23-year-old female with hypertension, asthma, anxiety, depression, bipolar disorder, posttraumatic stress disorder, and schizophrenia who presented to the emergency department for evaluation of abdominal pain. 08/25: Patient is seen resting in bed with her parents at bedside. She appears as though she does not feel well. She states she is having right upper quadrant abdominal pain that is radiating to her back with nausea. She states she has not been able to eat or drink much for the last 2 weeks because of her abdominal pain and nausea. Because of this she has not been taking medications as prescribed. She has an issue with chronic constipation is usually dependent upon taking Colace daily. Well she is still passing gas she has not had a bowel movement for 2 weeks. She does report dysuria and foul-smelling urine. 08/26: Resting in bed with her mom at bedside. She continues to complain of abdominal pain in the right upper quadrant. She states that the morphine is not helping her pain. Family says surgeon came by and they were talking surgery verses IR drain. 08/27- PT IS SEEN AND EXAMINED this am. Robotic assisted lap ying, possible open today Review of Systems Review of Systems: 12 systems were reviewed and are negative except for as per HPI. All systems reviewed & are unremarkable except as noted in HPI and below Exam Narrative: General: well appearing, appears stated age. HEENT: normocephalic, atraumatic. Mucous membranes moist. EOMI, PER
--- NOTE | 2023-08-28 10:00 | PC.NURSE ---
To OR per [22 L wrist ], IV [ 20 R shoulder]. Report given to [[place] ].
[2023-08-28] MEDS: fentaNYL CITRATE INJ (*CRX) 100 MCG/2 ML VIAL 25 MCG IV PUSH ×2 (10:53→13:01)
--- NOTE | 2023-08-28 11:15 | WPDANESEPPF ---
Anes - Initial Pre Proc Eval Procedure: Operation Date: 08/28/23 11:30 Proposed Procedures p Robotic Assisted Laparoscopic Cholecystectomy - Jose Nick MD Date/Time: 08/28/23 11:15 Surgeon: Aliyah Cobb APRN Pre Op Diagnosis: acute cholecystitis Patient Data Age: 23 Gender: F Height: 1.68 m Weight: 160.1 kg Last Vital Signs Temp 97.3 F L 08/28/23 10:24 Pulse 92 08/28/23 10:24 Resp 16 08/28/23 10:24 BP 121/62 08/28/23 10:24 Pulse Ox 98 08/28/23 10:24 O2 Del Method Room Air 08/26/23 20:00 Allergies Allergy/AdvReac Type Severity Reaction Status Date / Time bupropion [From Wellbutrin] Allergy Severe Seizure Verified 08/28/23 10:21 Iodinated Contrast Media Allergy Severe Hives/RED Verified 08/28/23 10:21 FACE Home Medications Medication Instructions Recorded Confirmed Type prazosin 5 mg capsule See Rx Instructions .Route .COMPLEX 01/26/20 08/25/23 History metoprolol succinate 200 mg See Rx Instructions .Route 04/27/22 08/25/23 Rx tablet,extended release 24 hr .COMPLEX #90 tabs buspirone 10 mg tablet 10 mg TID 05/27/22 08/25/23 History venlafaxine 75 mg capsule,extended 175 mg PO DAILY 05/27/22 08/25/23 History release 24 hr docusate sodium 100 mg capsule 100 mg PO DAILY 08/25/23 08/25/23 History (Stool Softener) fluticasone 250 mcg-salmeterol 50 See Rx Instructions .Route 08/25/23 08/25/23 History mcg/dose blistr powdr for .COMPLEX PRN sob inhalation (Advair Diskus) lithium carbonate 450 mg 450 mg PO HS 08/25/23 08/25/23 History tablet,extended release meloxicam 15 mg tablet 15 mg PO DAILY 08/25/23 08/25/23 History trazodone 50 mg tablet 50 mg PO HS 08/25/23 08/25/23 History Laboratory Tests 08/28/23 06:10 WBC 14.5 H K/mm3 (4.5-10.0) RBC 3.99 L M/mm3 (4.2-5.4) Hgb 11.0 L g/dL (12.0-15.0) Hct 32.2 L % (37.0-47.0) MCV 80.7 fl (80-100) MCH 27.6 pg (26-34) MCHC 34.2 g/dl (32-36) RDW 15.1 H % (11.5-14.5) Plt Count 345 k/mm3 (150-375) MPV 10.2 fl (7.4-10.4) Immature Gran % (Auto) 0.4 % (0-0.5) Neut % (Auto) 69.0 % (45.5-73.1) Lymph % (Auto) 23.3 % (18.3-44.2) [place] % (Auto) 3.9 % (2.6-8.5) Eos % (Auto) 3.0 % (0-4.4) Baso % (Auto) 0.4 % (0.2-1.2) Lymph # (Auto) 3.38 H K/mm3 (0.9-3.2) [place] # (Auto) 0.6 K/mm3 (0.1-0.6) Eos # (Auto) 0.4 H K/mm3 (0-0.3) Baso # (Auto) 0.1 K/mm3 (0.0-0.1) Abs Immat Gran (auto) 0.06 H K/mm3 (0.00-0.031) Absolute Neuts (auto) 10.0 H K/mm3 (1.3-6.7) Absolute Nucleated RBC 0.000 K/mm3 (0.0-0.012) Nucleated RBC % 0.0 % (0.0-0.2) Sodium 138 mmol/L (137-145) Potassium 3.5 mmol/L (3.4-5.0) Chloride 108 H mmol/L (98-107) Carbon Dioxide 25 mmol/L (22-30) Anion Gap 5 mmol/L (4-12) BUN < 2 L mg/dL (7-17) Creatinine 0.60 L mg/dL (0.7-1.0) Estim Creat Clear Calc 195 ml/min Estimated GFR > 60 (59 - ) Glucose 97 mg/dL (65-110) Calcium 8.6 mg/dL (8.4-10.2) Magnesium 1.9 mg/dL (1.6-2.3) Total Bilirubin 0.8 mg/dL (0.2-1.3) AST 15 U/L (14-36) ALT 10 U/L (6-35) Alkaline Phosphatase 90 U/L (38-126) Total Protein 6.0 L g/dL (6.3-8.2) Albumin 3.2 L g/dL (3.5-5.1) Blood Type B Positive Antibody Screen Negative Patient hx anesthesia problems: none Family hx anesthesia problems: none Results Review: All pre-operative results and documents have been reviewed as part of the pre-operative evaluation. [facility] Past Medical History Medical History Asthma Bipolar disorder Depression with anxiety Hypertension Migraine Morbid obesity Posttraumatic stress disorder Schizophrenic catalepsy Surgical History Surgical History History of tonsillectomy and adenoidectomy (2011)
[2023-08-28] MEDS: LACTATED RINGERS 1,000 ML 30 ML IV CONT ×2 (11:51→16:13)
--- NOTE | 2023-08-28 13:09 | WPDHPUPDATE1 ---
History and Physical Update Update Date/Time: 08/28/23 13:09 History and Physical has been reviewed, including an updated exam of the patient. There are NO changes in the patient's condition. Risks, benefits, and alternatives have been discussed and questions answered. Patient agrees to proceed with procedure.
[2023-08-28] MEDS: INDOCYANINE GREEN 25 MG VIAL WITH DILUENT 3.75 MG IV PUSH (13:19)
[2023-08-28] MEDS: KETOROLAC 15 MG/ML VIAL (*BKC) IV PUSH (13:23)
[2023-08-28] MEDS: ACETAMINOPHEN 500 MG TABLET 1000 MG PO (13:23)
[2023-08-28] MEDS: LIDO 1%/EPINEPHRINE 1:100,000 50 ML VIAL 30 ML INFILTRATE (14:07)
[2023-08-28] MEDS: BUPivacaine HCL 0.5% 10 ML AMP 30 ML INFILTRATE (14:07)
--- NOTE | 2023-08-28 16:19 | PM.OP ---
Procedure Note - Brief Procedure Note - Brief Date of procedure: 08/28/23 acute cholecystitis Post-op diagnosis: Same (Acute cholecystitis secondary to cholelithiasis) Procedure performed: Robotic assisted laparoscopic cholecystectomy. Surgeon: Jose Nick MD Anesthesia: GETNoy Estimated blood loss (mL): 25 Urine output (mL): 100 Drains: Yes ([employer]teen [place] RICKIE drain right upper quadrant) Packing: No Pathology: Yes (Gallbladder to pathology) Complications: No immediate complications Condition: Stable Disposition: PACU
[2023-08-28] MEDS: HYDROmorphone HCL INJ (*CRX) 1 MG/ML SYR 0.25 MG IV PUSH ×4 (17:21→17:36)
--- NOTE | 2023-08-28 17:40 | PC.NURSE ---
Returned from OR per [ ]. Report received from [ [place]
[2023-08-28] MEDS: HYDROmorphone HCL INJ (*CRX) 1 MG/ML SYR IV PUSH (17:52)
[2023-08-28] MEDS: LACTATED RINGERS 1,000 ML 100 ML IV CONT (18:25)
--- NOTE | 2023-08-28 18:35 | W.PM.PROC2 ---
Procedure Note - Detailed Date of Procedure 08/28/23 Pre-op Diagnosis acute cholecystitis Post-op Diagnosis Same ( Acute cholecystitis secondary to cholelithiasis) Procedure Performed Robotic assisted laparoscopic cholecystectomy Surgeon Jose Nick MD Anesthesia General Indications patient is a 23-year-old female who her last few weeks has been having issues with right upper quadrant abdominal pain with eating. She initially had outpatient imaging which showed no gallstones. She did have sludge in gallbladder. She was scheduled to be seen as an outpatient but he came back to the hospital with worsening right upper quadrant pain. She was admitted to the hospital and there was thickened gallbladder wall with some stranding around the gallbladder suggestive of acute cholecystitis. She had a leukocytosis to go along with the imaging to suggest she has acute cholecystitis. Her pain continued and it was not getting better white blood cell count was [id number]. presents now for an urgent laparoscopic cholecystectomy via robotic assisted laparoscopic approach. Findings The patient did have acute cholecystitis. The gallbladder had numerous very small sandlike particles of small gallstones. The gallbladder wall was markedly thickened and acutely inflamed. Description of Procedure After informed consent was obtained patient brought to the operating room she was placed supine position and general endotracheal anesthesia was administered. The abdomen was then prepped and draped usual sterile fashion. A time-out was then performed correctly identifying the patient as well as procedure to be performed. She was already on scheduled IV antibiotics. I then utilized a 5mm Optiview port into the abdomen in the left upper quadrant. Once I was inside the abdomen insufflated to adequate pneumoperitoneum of 15mmHg of CO2. I then placed additional robotic trocar ports which were 8mm in diameter in the periumbilical position as well as the right lateral abdominal wall and the left lateral abdominal wall. I then switched out the 5mm left upper quadrant trocar port to a 10mm bedside placement assistant trocar port. The [employer] robot was then brought to the patient's bedside and the robot was docked and the robotic arms were attached robotic ports. Robotic instruments were then advanced into the under direct visualization. I scrubbed out the procedure sent and the robotic console to perform the dissection robotically. Upon initial evaluation the gallbladder was markedly thickened and acutely edematous and inflamed. There were inflammatory adhesions of the omentum to the gallbladder which I was able to strip down bluntly with the robotic suction and irrigation tip. I was then able to hold the gallbladder at the dome and elevate the gallbladder over the right half liver his right shoulder. With this retraction however was unfortunate but there was a home in the gallbladder and copious amounts of thick sludgelike bile was very small sandlike particles of gallstones spilled of the gallbladder. This was quickly aspirated with robotic suction irrigating device. Due to the inflammation the area I did most of the initial dissection utilizing the tip of the suction irrigating robotic device. This then allowed me to see what I felt was the cystic duct. The patient had injection of 1.5cc of ICG intravenously and utilizing firefly was able to identify what appeared to be the common bile duct with this tubular structure coming off towards the infundibular gallbladder which had slight green color. This structure was then dissected out circumferentially with robotic [place] dissector. I tried to identify The cystic artery but appeared to have thrombosed and there was really no cystic artery to ligate. Once I felt comfortable I had the cystic duct identified and then placed 2 robotic clips on it proximally and 1 clip distally high on infundibular gallbladder. The cystic duct was divided wi
[2023-08-28] MEDS: PRAZOSIN HCL 5 MG CAPSULE 10 MG BY MOUTH (20:23)
[2023-08-28] MEDS: traZODone HCL 50 MG TABLET PO (20:24)
[2023-08-29] VITALS (9 sets, daily range): BP systolic 117–174; BP diastolic 63–90; PULSE 76–90; RESP 16–20; TEMP 35.6–36.8; O2SAT 93–100
[2023-08-29] MEDS: HYDROmorphone HCL INJ (*CRX) 1 MG/ML SYR IV PUSH (00:01)
[2023-08-29] MEDS: HYDROcodone/acetaminophen (*CRX) 5-325 MG TABLET 1 TAB PO ×3 (03:16→17:34)
[2023-08-29] MEDS: LACTATED RINGERS 1,000 ML 100 ML IV CONT ×2 (03:18→12:51)
[2023-08-29] MEDS: PIPERACILLN/TAZ 3.375GM/NS50ML 3.375 GM/50 ML BAG IVPB (05:27)
[2023-08-29 06:31] LABS: Basophils Percent Auto 0.2 % (0.2-1.2); Eosinophils Percent Auto 0.1 % (0-4.4); Hematocrit 32.4 % (37.0-47.0); Hemoglobin 10.8 g/dL (12.0-15.0); Immature Granulocyte Absolute 0.07 K/mm3 (0.00-0.031); Immature Granulocyte Percent A 0.6 % (0-0.5); Lymphocytes Absolute Auto 2.27 K/mm3 (0.9-3.2); Lymphocytes Percent Auto 18.1 % (18.3-44.2); Mean Corpuscular HGB Conc 33.3 g/dl (32-36); Mean Corpuscular Hemoglobin 27.4 pg (26-34); Mean Corpuscular Volume 82.2 fl (80-100); Mean Platelet Volume 10.4 fl (7.4-10.4); Monocytes Absolute Auto 0.5 K/mm3 (0.1-0.6); Neutrophils Absolute Auto 9.6 K/mm3 (1.3-6.7); Platelet Count Result 383 k/mm3 (150-375); Red Blood Count 3.94 M/mm3 (4.2-5.4); Red Cell Distribution Width 15.3 % (11.5-14.5); White Blood Count 12.5 K/mm3 (4.5-10.0)
[2023-08-29 06:40] LABS: Alanine Aminotransferase 10 U/L (6-35); Albumin Level 2.9 g/dL (3.5-5.1); Alkaline Phosphatase 77 U/L (38-126); Anion Gap 8 mmol/L (4-12); Aspartate Amino Transferase 16 U/L (14-36); Bilirubin,Total 0.5 mg/dL (0.2-1.3); Calcium 8.4 mg/dL (8.4-10.2); Carbon Dioxide 20 mmol/L (22-30); Chloride 108 mmol/L (98-107); Estimated CRCL calculation 233 ml/min; Estimated Glomerular Filt Rate > 60; Glucose 89 mg/dL (65-110); Magnesium 1.7 mg/dL (1.6-2.3); Potassium 3.8 mmol/L (3.4-5.0); Sodium 136 mmol/L (137-145)
[2023-08-29 06:44] LABS: Blood Urea Nitrogen < 2 mg/dL (7-17)
[2023-08-29] MEDS: FLUTICASONE/SALMETEROL 230-21 MCG INHALER 1 PUFF 2 PUFF INHALATION ×2 (07:47→20:30)
[2023-08-29] MEDS: PHENAZOPYRIDINE HCL 100 MG TABLET 200 MG PO ×3 (09:36→17:34)
[2023-08-29] MEDS: METOPROLOL SUCCINATE EXT REL 100 MG TABCR 200 MG BY MOUTH (09:36)
[2023-08-29] MEDS: DOCUSATE SODIUM 100 MG CAPSULE PO (09:37)
[2023-08-29] MEDS: busPIRone HCL 10 MG TABLET BY MOUTH ×3 (09:37→17:33)
[2023-08-29] MEDS: PANTOPRAZOLE SODIUM IV 40 MG VIAL IV PUSH (09:38)
[2023-08-29] MEDS: ENOXAPARIN 40 MG/0.4 ML SYRINGE SUB-Q (09:38)
--- NOTE | 2023-08-29 09:51 | PM.IMPN ---
Progress Note: A&P Assessment and Plan (1) Acute cholecystitis: Code(s): K81.0 - Acute cholecystitis Status: Acute Assessment and Plan: Right upper quadrant pain with associated nausea, vomiting subjective fever chills. CT of abdomen and pelvis shows acute cholecystitis. White blood cell count 17, afebrile Patient was started on Zosyn Normal saline 100 mL/hour Pain meds p.r.n. morphine Zofran for nausea Blood cultures pending Lactic 1.1 NPO diet Surgery was consulted, recs appreciated 08/26: Clear liquid diet today. NPO at midnight. Switched her pain medication to IV Dilaudid as she states the morphine was not working. Blood cultures with no growth to date. 08/27- robotic assisted lap ying, poss open today. Leave the drain in today. Keep her on IV antibiotics today and then transition oral antibiotics tomorrow. Hopefully can discharge home tomorrow a biotics and remove the drain prior to discharge - advance diet, monitor (2) Hypokalemia: Code(s): E87.6 - Hypokalemia Status: Acute Assessment and Plan: Potassium 3.2 on admission. Patient received 40 mg of fluids over placement. Repeat BMP this morning, add Mag Monitor electrolytes daily Potassium level goal greater than 3.5, magnesium greater than 1.6 08/26: Potassium 3.1 she is receiving 40 mEq IVPB 08/28- stable today- monitor (3) Abnormal urinalysis: Code(s): R82.90 - Unspecified abnormal findings in urine Status: Acute Assessment and Plan: UA concerning for UTI positive nitrate positive leukocytes +2, white blood cell greater than 100 with clumps, +4 bacteria. Poor specimen is many squamous cells present. Urine culture pending Patient on Zosyn for acute cholecystitis which should cover UTI 08/26: Complaining of dysuria. Added Pyridium. Urine culture still pending. Discuss hygiene practices to prevent further UTI. (4) Hypertension: Code(s): I10 - Essential (primary) hypertension Status: Acute Assessment and Plan: On Metoprolol succinate 200 mg daily Blood pressure reviewed and controlled continue to monitor 08/26: Blood pressures reviewed and are stable. (5) Asthma: Code(s): J45.909 - Unspecified asthma, uncomplicated Status: Acute Assessment and Plan: No acute respiratory distress. Continue advair BID Plan Feeding:NPO at midnight Analgesia: Dilaudid Thromboembolic prophylaxis: scd Lines: PIV Antibiotics:zosyn Disposition: surgery consulted, milad anand tomorrow 7-30 Time Spent With Patient Time with patient: 25 - 35 minutes Subjective Date/time seen: 08/29/23 09:51 Interval history: This is a morbidly obese 23-year-old female with hypertension, asthma, anxiety, depression, bipolar disorder, posttraumatic stress disorder, and schizophrenia who presented to the emergency department for evaluation of abdominal pain. 08/25: Patient is seen resting in bed with her parents at bedside. She appears as though she does not feel well. She states she is having right upper quadrant abdominal pain that is radiating to her back with nausea. She states she has not been able to eat or drink much for the last 2 weeks because of her abdominal pain and nausea. Because of this she has not been taking medications as prescribed. She has an issue with chronic constipation is usually dependent upon taking Colace daily. Well she is still passing gas she has not had a bowel movement for 2 weeks. She does report dysuria and foul-smelling urine. 08/26: Resting in bed with her mom at bedside. She continues to complain of abdominal pain in the right upper quadrant. She states that the morphine is not helping her pain. Family says surgeon came by and they were talking surgery verses IR drain. 08/27- PT IS SEEN AND EXAMINED this am. Robotic assisted lap ying, possible open today 08/28- Robotic assisted laparoscopic cholecystectomy 08/[address] Pt
--- NOTE | 2023-08-29 10:22 | WPDPN ---
Progress Note: A&P Assessment and Plan (1) Acute cholecystitis: Code(s): K81.0 - Acute cholecystitis Status: Acute Assessment and Plan: Postop day 1 after robotic assisted laparoscopic cholecystectomy. Patient's super morbid obesity made it difficult to the gallbladder but it was ultimately successful laparoscopically with the aid of the [employer] robot the gallbladder was acutely inflamed with gallstones and due to the intense inflammation and intrahepatic nature of the gallbladder the wall the gallbladder was left in place and fulgurated. White blood cell count is down 12,000 today after removal the gallbladder. Liver enzymes are all normal. She tolerated clear liquids so advance her diet today. Leave the drain in today. Keep her on IV antibiotics today and then transition oral antibiotics tomorrow. Hopefully can discharge home tomorrow a biotics and remove the drain prior to discharge. I asked nurse to get her up out of bed sitting up in a chair at least 2 to 3 times a day. The patient needs motivation to get up out of bed. Subjective Date/time seen: 08/29/23 10:22 Interval history: Patient is doing okay today. Complains of having pain mostly around her incisions. No fevers and so. Hemodynamically stable. Her nurse tells me she needs more motivation to get up out of bed. Be getting oral [place] for pain. She did tolerate clear liquids. Exam GI: Other: Abdomen is soft and nondistended. Morbidly obese. RICKIE drain low output serous sanguinous fluid. No bile. Port site incisions are healing well. Objective Data Vital Signs Vital Signs: Vital Signs - 24 hr 08/28/23 10:24 08/28/23 16:13 08/28/23 16:25 Temperature 36.3 C L 36.6 C Pulse Rate 92 85 89 Respiratory Rate 16 16 17 Blood Pressure 121/62 139/67 138/82 Pulse Oximetry 98 97 94 Oxygen Delivery Simple Face Mask Nasal Cannula Oxygen Flow Rate 8 2 08/28/23 16:50 08/28/23 17:05 08/28/23 17:16 Temperature Pulse Rate 83 82 86 Respiratory Rate 14 15 15 Blood Pressure 150/89 H 157/88 H 152/86 H Pulse Oximetry 93 93 94 Oxygen Delivery Nasal Cannula Nasal Cannula Nasal Cannula Oxygen Flow Rate 2 2 2 08/28/23 17:30 08/28/23 17:50 08/28/23 18:05 Temperature 36.7 C 36.4 C Pulse Rate 83 79 80 Respiratory Rate 18 20 20 Blood Pressure 133/81 142/85 H 134/90 Pulse Oximetry 93 93 93 Oxygen Delivery Nasal Cannula Oxygen Flow Rate 2 08/28/23 18:35 08/28/23 19:06 08/28/23 19:36 Temperature 36.4 C 36.2 C L 36.1 C L Pulse Rate 81 75 69 Respiratory Rate 18 18 20 Blood Pressure 132/75 170/71 H 163/68 H Pulse Oximetry 92 97 96 Oxygen Delivery Oxygen Flow Rate 08/28/23 20:36 08/29/23 00:36 08/29/23 04:36 Temperature 36.3 C L 36.8 C 36.8 C Pulse Rate 72 84 79 Respiratory Rate 18 20 18 Blood Pressure 148/64 H 174/82 H 136/90 Pulse Oximetry 97 98 95 Oxygen Delivery Oxygen Flow Rate 08/29/23 07:50 08/29/23 08:36 08/29/23 09:36 Temperature 36.6 C Pulse Rate 86 90 Respiratory Rate 18 Blood Pressure 137/87 Pulse Oximetry 93 96 Oxygen Delivery Room Air Oxygen Flow Rate Intake/Output Intake/Output: Intake & Output 08/26/23 08/27/23 08/28/23 08/29/23 23:59 23:59 23:59 23:59 Intake Total 3440 3915.3 1623.3 1478.3 Output Total 550 950 215 10 Balance 2890 2965.3 1408.3 1468.3 Meds/Results Medications: Active Medications Generic Name Dose Route Start Last Admin Trade Name Freq PRN Reason Stop Dose Admin Acetaminophen 1,000 mg 08/28/23 16:14 Acetaminophen 500 Mg Tablet PO Q6H PRN Mild Pain (1-3) or Fever Hydrocodone Bitart/Acetaminophen 1 tab 08/26/23 21:59 08/29/23 09:43 Hydrocodone/Acetaminophen (*Crx) 5-325 Mg Tablet PO 1 tab Q6H PRN Administration Pain Rated 4-6 Buspirone HCl 10 mg 08/25/23 21:20 08/29/23 09:37 Buspirone Hcl 10 Mg Tablet BY MOUTH 10 mg TID MEDHAT Administration Docusate Sodium 100 mg 08/26/23 09:00 08/29/23 09:37
[2023-08-29] MEDS: IBUPROFEN IV 800 MG/200 ML 800 MG/200 ML BAG 400 MG IVPB (12:48)
[2023-08-29] MEDS: CIPROFLOXACIN 500 MG TAB PO ×2 (12:51→21:02)
[2023-08-29] MEDS: metroNIDAZOLE 500 MG TABLET PO ×2 (12:51→21:01)
--- NOTE | 2023-08-29 13:18 | P.PNAN_ITS ---
Anes - Prog Note Post-Op Date/Time: 08/29/23 13:18 Cardiovascular status: normal Respiratory status: normal Airway patency: baseline Mental status: baseline Post-Op hydration status: normal Vital Signs: Last Vital Signs Temp 36.6 C 08/29/23 08:36 Pulse 90 08/29/23 09:36 Resp 18 08/29/23 08:36 BP 137/87 08/29/23 08:36 Pulse Ox 96 08/29/23 08:36 O2 Del Method Room Air 08/29/23 07:50 O2 Flow Rate 2 08/28/23 17:30 Pain Score (VAS): 05/04 I/O: Intake & Output 08/28/23 08/29/23 08/29/23 23:59 07:59 15:59 Intake Total 550 1238.3 1195 Output Total 215 10 Balance 335 1228.3 1195 Laboratory Tests 08/29/23 06:18 08/29/23 06:18 08/29/23 06:18 WBC 12.5 H RBC 3.94 L Hgb 10.8 L Hct 32.4 L MCV 82.2 MCH 27.4 MCHC 33.3 RDW 15.3 H Plt Count 383 H MPV 10.4 Immature Gran % (Auto) 0.6 H Neut % (Auto) 77.0 H Lymph % (Auto) 18.1 L [place] % (Auto) 4.0 Eos % (Auto) 0.1 Baso % (Auto) 0.2 Lymph # (Auto) 2.27 [place] # (Auto) 0.5 Eos # (Auto) 0.0 Baso # (Auto) 0.0 Abs Immat Gran (auto) 0.07 H Absolute Neuts (auto) 9.6 H Absolute Nucleated RBC 0.000 Nucleated RBC % 0.0 Sodium 136 L Potassium 3.8 Chloride 108 H Carbon Dioxide 20 L Anion Gap 8 BUN < 2 L Creatinine 0.50 L Estim Creat Clear Calc 233 Estimated GFR > 60 Glucose 89 Calcium 8.4 Magnesium 1.7 Total Bilirubin 0.5 AST 16 ALT 10 Alkaline Phosphatase 77 Total Protein 6.0 L Albumin 2.9 L Post-procedural complaints: none Patient Feedback: Patient satisfied with anesthetic care.
[2023-08-29] MEDS: PRAZOSIN HCL 5 MG CAPSULE 10 MG BY MOUTH (21:01)
[2023-08-29] MEDS: traZODone HCL 50 MG TABLET PO (21:01)
[2023-08-29] MEDS: ACETAMINOPHEN 500 MG TABLET 1000 MG PO (21:04)
[2023-08-30 00:14] VITALS: BP 128/63; PULSE 91; RESP 16; TEMP 36.2; O2SAT 93
[2023-08-30] MEDS: metroNIDAZOLE 500 MG TABLET PO ×2 (05:47→14:54)
[2023-08-30 05:53] VITALS: BP 127/60; PULSE 90; RESP 20; TEMP 36.4; O2SAT 98
--- NOTE | 2023-08-30 06:26 | PC.NURSE ---
I have review the charting of Madelin CASANOVA, and am in agreement with the findings. We will continue to monitor and review for changes
[2023-08-30 07:05] LABS: Basophils Absolute Auto 0.1 K/mm3 (0.0-0.1); Basophils Percent Auto 0.5 % (0.2-1.2); Eosinophils Absolute Auto 0.2 K/mm3 (0-0.3); Eosinophils Percent Auto 1.7 % (0-4.4); Hematocrit 32.4 % (37.0-47.0); Hemoglobin 10.6 g/dL (12.0-15.0); Immature Granulocyte Absolute 0.05 K/mm3 (0.00-0.031); Immature Granulocyte Percent A 0.4 % (0-0.5); Lymphocytes Absolute Auto 3.91 K/mm3 (0.9-3.2); Lymphocytes Percent Auto 34.9 % (18.3-44.2); Mean Corpuscular HGB Conc 32.7 g/dl (32-36); Mean Corpuscular Hemoglobin 26.9 pg (26-34); Mean Corpuscular Volume 82.2 fl (80-100); Mean Platelet Volume 10.6 fl (7.4-10.4); Monocytes Absolute Auto 0.6 K/mm3 (0.1-0.6); Monocytes Percent Auto 5.6 % (2.6-8.5); Neutrophils Absolute Auto 6.4 K/mm3 (1.3-6.7); Neutrophils Percent Auto 56.9 % (45.5-73.1); Platelet Count Result 410 k/mm3 (150-375); Red Blood Count 3.94 M/mm3 (4.2-5.4); Red Cell Distribution Width 15.5 % (11.5-14.5); White Blood Count 11.2 K/mm3 (4.5-10.0)
[2023-08-30 07:27] LABS: Alanine Aminotransferase 11 U/L (6-35); Albumin Level 3.1 g/dL (3.5-5.1); Alkaline Phosphatase 68 U/L (38-126); Anion Gap 5 mmol/L (4-12); Aspartate Amino Transferase 23 U/L (14-36); Bilirubin,Total 0.6 mg/dL (0.2-1.3); Blood Urea Nitrogen 6 mg/dL (7-17); Calcium 8.6 mg/dL (8.4-10.2); Carbon Dioxide 24 mmol/L (22-30); Chloride 108 mmol/L (98-107); Estimated CRCL calculation 172 ml/min; Estimated Glomerular Filt Rate > 60; Glucose 82 mg/dL (65-110); Magnesium 1.8 mg/dL (1.6-2.3); Potassium 3.7 mmol/L (3.4-5.0); Sodium 137 mmol/L (137-145)
[2023-08-30] MEDS: FLUTICASONE/SALMETEROL 230-21 MCG INHALER 1 PUFF 2 PUFF INHALATION (08:02)
[2023-08-30 08:03] VITALS: O2SAT 95
--- NOTE | 2023-08-30 08:18 | PM.IMPN ---
Progress Note: A&P Assessment and Plan (1) Acute cholecystitis: Code(s): K81.0 - Acute cholecystitis Status: Acute Assessment and Plan: Right upper quadrant pain with associated nausea, vomiting subjective fever chills. CT of abdomen and pelvis shows acute cholecystitis. White blood cell count 17, afebrile Patient was started on Zosyn Normal saline 100 mL/hour Pain meds p.r.n. morphine Zofran for nausea Blood cultures pending Lactic 1.1 NPO diet Surgery was consulted, recs appreciated 08/26: Clear liquid diet today. NPO at midnight. Switched her pain medication to IV Dilaudid as she states the morphine was not working. Blood cultures with no growth to date. 08/28 robotic assisted lap ying, poss open today. Leave the drain in today. Keep her on IV antibiotics today and then transition oral antibiotics tomorrow. Hopefully can discharge home tomorrow a biotics and remove the drain prior to discharge - advance diet, monitor 08/29- possible discharge home today if cleared with surgery (2) Hypokalemia: Code(s): E87.6 - Hypokalemia Status: Acute Assessment and Plan: Potassium 3.2 on admission. Patient received 40 mg of fluids over placement. Repeat BMP this morning, add Mag Monitor electrolytes daily Potassium level goal greater than 3.5, magnesium greater than 1.6 08/26: Potassium 3.1 she is receiving 40 mEq IVPB 08/28- stable today- monitor (3) Abnormal urinalysis: Code(s): R82.90 - Unspecified abnormal findings in urine Status: Acute Assessment and Plan: UA concerning for UTI positive nitrate positive leukocytes +2, white blood cell greater than 100 with clumps, +4 bacteria. Poor specimen is many squamous cells present. Urine culture pending Patient on Zosyn for acute cholecystitis which should cover UTI 08/26: Complaining of dysuria. Added Pyridium. Urine culture still pending. Discuss hygiene practices to prevent further UTI. (4) Hypertension: Code(s): I10 - Essential (primary) hypertension Status: Acute Assessment and Plan: On Metoprolol succinate 200 mg daily Blood pressure reviewed and controlled continue to monitor 08/26: Blood pressures reviewed and are stable. (5) Asthma: Code(s): J45.909 - Unspecified asthma, uncomplicated Status: Acute Assessment and Plan: No acute respiratory distress. Continue advair BID Plan Feeding:NPO at midnight Analgesia: Dilaudid Thromboembolic prophylaxis: scd Lines: PIV Antibiotics:zosyn Disposition: surgery consulted, milad anand tomorrow 7-30 Time Spent With Patient Time with patient: 25 - 35 minutes Subjective Date/time seen: 08/30/23 08:18 Interval history: This is a morbidly obese 23-year-old female with hypertension, asthma, anxiety, depression, bipolar disorder, posttraumatic stress disorder, and schizophrenia who presented to the emergency department for evaluation of abdominal pain. 08/25: Patient is seen resting in bed with her parents at bedside. She appears as though she does not feel well. She states she is having right upper quadrant abdominal pain that is radiating to her back with nausea. She states she has not been able to eat or drink much for the last 2 weeks because of her abdominal pain and nausea. Because of this she has not been taking medications as prescribed. She has an issue with chronic constipation is usually dependent upon taking Colace daily. Well she is still passing gas she has not had a bowel movement for 2 weeks. She does report dysuria and foul-smelling urine. 08/26: Resting in bed with her mom at bedside. She continues to complain of abdominal pain in the right upper quadrant. She states that the morphine is not helping her pain. Family says surgeon came by and they were talking surgery verses IR drain. 08/27- PT IS SEEN AND EXAMINED this am. Robotic assisted lap ying, possible open today 08/28- Robotic
[2023-08-30 08:21] VITALS: PULSE 86
[2023-08-30] MEDS: busPIRone HCL 10 MG TABLET BY MOUTH ×2 (08:21→12:06)
[2023-08-30] MEDS: METOPROLOL SUCCINATE EXT REL 100 MG TABCR 200 MG BY MOUTH (08:21)
[2023-08-30] MEDS: PHENAZOPYRIDINE HCL 100 MG TABLET 200 MG PO ×2 (08:21→12:06)
[2023-08-30] MEDS: CIPROFLOXACIN 500 MG TAB PO (08:21)
[2023-08-30] MEDS: ENOXAPARIN 40 MG/0.4 ML SYRINGE SUB-Q (08:21)
[2023-08-30] MEDS: DOCUSATE SODIUM 100 MG CAPSULE PO (08:21)
[2023-08-30] MEDS: PANTOPRAZOLE 40 MG TABLET PO (08:25)
--- NOTE | 2023-08-30 12:58 | PC.NURSE ---
Patient ambulated down hallway and back to room.
--- NOTE | 2023-08-30 13:03 | WPDPN ---
Progress Note: A&P Assessment and Plan (1) Acute cholecystitis: Code(s): K81.0 - Acute cholecystitis Status: Acute Assessment and Plan: Patient doing much better today after her laparoscopic cholecystectomy 2 days ago. RICKIE drain was removed today. She can be discharged home today on regular diet. Will have her finish a course of oral antibiotics for another 5 days. She is to follow-up see me in my office in 2 weeks. Discharge instructions are on chart. Subjective Date/time seen: 08/30/23 13:03 Interval history: Patient looks better today. Was able to get up and ambulate down the hallway. Tolerating low-fat diet without difficulty. She had a bowel movement today. White blood cell count is down to 11,200. no fever. Exam GI: Other: Abdomen is obese but soft. Port site incisions are healing well. RICKIE drain output is nonbilious and minimal serosanguineous. Objective Data Vital Signs Vital Signs: Vital Signs - 24 hr 08/29/23 16:36 08/29/23 20:33 08/29/23 20:33 Temperature 36.1 C L Pulse Rate 84 82 Respiratory Rate 18 16 Blood Pressure 117/63 Pulse Oximetry 96 96 Oxygen Delivery Room Air 08/29/23 20:36 08/29/23 20:00 08/30/23 00:14 Temperature 35.6 C L 36.2 C L Pulse Rate 76 91 Respiratory Rate 16 16 Blood Pressure 139/67 128/63 Pulse Oximetry 100 93 Oxygen Delivery Room Air 08/30/23 05:53 08/30/23 08:03 08/30/23 08:21 Temperature 36.4 C Pulse Rate 90 86 Respiratory Rate 20 Blood Pressure 127/60 Pulse Oximetry 98 95 Oxygen Delivery Room Air Intake/Output Intake/Output: Intake & Output 08/27/23 08/28/23 08/29/23 08/30/23 23:59 23:59 23:59 23:59 Intake Total 3915.3 1623.3 3733.3 342 Output Total 950 215 25 Balance 2965.3 1408.3 3708.3 342 Meds/Results Medications: Active Medications Generic Name Dose Route Start Last Admin Trade Name Freq PRN Reason Stop Dose Admin Acetaminophen 1,000 mg 08/28/23 16:14 08/29/23 21:04 Acetaminophen 500 Mg Tablet PO 1,000 mg Q6H PRN Administration Mild Pain (1-3) or Fever Hydrocodone Bitart/Acetaminophen 1 tab 08/26/23 21:59 08/29/23 17:34 Hydrocodone/Acetaminophen (*Crx) 5-325 Mg Tablet PO 1 tab Q6H PRN Administration Pain Rated 4-6 Buspirone HCl 10 mg 08/25/23 21:20 08/30/23 12:06 Buspirone Hcl 10 Mg Tablet BY MOUTH 10 mg TID MEDHAT Administration Ciprofloxacin 500 mg 08/29/23 12:00 08/30/23 08:21 Ciprofloxacin 500 Mg Tab PO 500 mg Q12HR MEDHAT Administration Docusate Sodium 100 mg 08/26/23 09:00 08/30/23 08:21 Docusate Sodium 100 Mg Capsule PO 100 mg DAILY MEDHAT Administration Enoxaparin Sodium 40 mg 08/29/23 09:00 08/30/23 08:21 Enoxaparin 40 Mg/0.4 Ml Syringe SUB-Q 40 mg DAILY MEDHAT Administration Hydromorphone HCl 1 mg 08/28/23 16:14 08/29/23 00:01 Hydromorphone Hcl Inj (*Crx) 1 Mg/Ml Syr IV PUSH 1 mg Q4H PRN Administration Pain Rated 7-10 Ibuprofen 800 mg in 200 mls @ 400 mls/hr 08/28/23 16:14 08/29/23 17:11 Caldolor 800 Mg/200 Ml IVPB Infused Q8H PRN Infusion Pain Rated 4-6 Metoprolol Succinate 200 mg 08/26/23 09:00 08/30/23 08:21 Metoprolol Succinate Ext Rel 100 Mg Tabcr BY MOUTH 200 mg DAILY MEDHAT Administration Metronidazole 500 mg 08/29/23 14:00 08/30/23 05:47 Metronidazole 500 Mg Tablet PO 500 mg Q8HR MEDHAT Administration Miscellaneous Information 1 each 08/26/23 00:01 08/29/23 00:05 Med Rec Order Clarification XX 09/25/23 00:00 Not Given [facility] Miscellaneous Information 1 each 08/26/23 00:01 08/29/23 00:05 Med Rec Order Clarification XX 09/25/23 00:00 Not Given CLARIFY MEDHAT Non-Formulary Medication 450 mg 08/26/23 21:00 [place] Carbonate PO 09/25/23 20:59 [facility] Ondansetron HCl 4 mg 08/25/23 21:11 08/28/23 18:35 Ondansetron Inj 4 Mg/2 Ml Vial IV PUSH 4 mg Q6H PRN Administration Nausea And Vomiting
--- NOTE | 2023-08-30 13:47 | PM.DS ---
DS: Admitting Diagnosis Discharge Date 08/29 Admitting Diagnosis abd pain DS: Discharge Diagnosis Discharge Diagnosis (1) Acute cholecystitis: Code(s): K81.0 - Acute cholecystitis Status: Acute Assessment and Plan: Right upper quadrant pain with associated nausea, vomiting subjective fever chills. CT of abdomen and pelvis shows acute cholecystitis. White blood cell count 17, afebrile Patient was started on Zosyn Normal saline 100 mL/hour Pain meds p.r.n. morphine Zofran for nausea Blood cultures pending Lactic 1.1 NPO diet Surgery was consulted, recs appreciated 08/26: Clear liquid diet today. NPO at midnight. Switched her pain medication to IV Dilaudid as she states the morphine was not working. Blood cultures with no growth to date. 08/28 robotic assisted lap ying, poss open today. Leave the drain in today. Keep her on IV antibiotics today and then transition oral antibiotics tomorrow. Hopefully can discharge home tomorrow a biotics and remove the drain prior to discharge - advance diet, monitor 08/29- possible discharge home today if cleared with surgery (2) Hypokalemia: Code(s): E87.6 - Hypokalemia Status: Acute Assessment and Plan: Potassium 3.2 on admission. Patient received 40 mg of fluids over placement. Repeat BMP this morning, add Mag Monitor electrolytes daily Potassium level goal greater than 3.5, magnesium greater than 1.6 08/26: Potassium 3.1 she is receiving 40 mEq IVPB 08/28- stable today- monitor (3) Abnormal urinalysis: Code(s): R82.90 - Unspecified abnormal findings in urine Status: Acute Assessment and Plan: UA concerning for UTI positive nitrate positive leukocytes +2, white blood cell greater than 100 with clumps, +4 bacteria. Poor specimen is many squamous cells present. Urine culture pending Patient on Zosyn for acute cholecystitis which should cover UTI 08/26: Complaining of dysuria. Added Pyridium. Urine culture still pending. Discuss hygiene practices to prevent further UTI. (4) Hypertension: Code(s): I10 - Essential (primary) hypertension Status: Acute Assessment and Plan: On Metoprolol succinate 200 mg daily Blood pressure reviewed and controlled continue to monitor 08/26: Blood pressures reviewed and are stable. (5) Asthma: Code(s): J45.909 - Unspecified asthma, uncomplicated Status: Acute Assessment and Plan: No acute respiratory distress. Continue advair BID Plan final dx: Acute cholecystitis, s/p laparoscopic cholecystectomy DS: Summary Hospital Course Hospital Course: Interval history: This is a morbidly obese 23-year-old female with hypertension, asthma, anxiety, depression, bipolar disorder, posttraumatic stress disorder, and schizophrenia who presented to the emergency department for evaluation of abdominal pain. 08/25: Patient is seen resting in bed with her parents at bedside. She appears as though she does not feel well. She states she is having right upper quadrant abdominal pain that is radiating to her back with nausea. She states she has not been able to eat or drink much for the last 2 weeks because of her abdominal pain and nausea. Because of this she has not been taking medications as prescribed. She has an issue with chronic constipation is usually dependent upon taking Colace daily. Well she is still passing gas she has not had a bowel movement for 2 weeks. She does report dysuria and foul-smelling urine. 08/26: Resting in bed with her mom at bedside. She continues to complain of abdominal pain in the right upper quadrant. She states that the morphine is not helping her pain. Family says surgeon came by and they were talking surgery verses IR drain. 08/27- PT IS SEEN AND EXAMINED this am. Robotic assisted lap ying, possible open today 08/28- Robotic assisted laparoscopic cholecystectomy 08/[address] Pt is seen and exami
[2023-08-30 16:06] VITALS: BP 128/86; PULSE 95; RESP 20; TEMP 36.3; O2SAT 98
== END 2023-08-30 16:50 | disposition home or self-care (01) ==
LOC: ANHED 15:18 → ANH3MEDSUR 18:11
PROVIDERS: Physician Assistant; Surgery; Admitting Provider General Practice; Emergency Provider Physician Assistant; Referring Provider Emergency Medicine; Visit Provider Nurse Practitioner Acute Care
PROC: 0FT44ZZ Resection of Gallbladder, Percutaneous Endoscopic Approach (ICD-10-PCS; CPT 47562; principal; 2023-08-28 11:30)
DX: K81.2 Acute cholecystitis with chronic cholecystitis (principal); K82.A2 Perforation of gallbladder in cholecystitis; E87.6 Hypokalemia; R82.90 Unspecified abnormal findings in urine; R30.0 Dysuria; K59.00 Constipation, unspecified; I10 Essential (primary) hypertension; J45.909 Unspecified asthma, uncomplicated; F31.9 Bipolar disorder, unspecified; F43.10 Post-traumatic stress disorder, unspecified; F20.2 Catatonic schizophrenia; E66.01 Morbid (severe) obesity due to excess calories; Z68.43 Body mass index [BMI] 50.0-59.9, adult
CPT/HCPCS: 47562; S2900; 36415; 74176; 80053; 80178; 81001; 81025; 82607; 82746; 83540; 83550; 83690; 83735; 85025; 85610; 85730; 86850; 86900; 86901; 87040; 87086; 88304; 93005; 94640; 96360; 96361; 96365; 96374; 96375; 96376; 99285; A9270; G0378; G0379; J0330; J1100; J1170; J1650; J1741; J1885; J2250; J2270; J2405; J2470; J2543; J2704; J3010; J3480; J7030; J7040; J7120

== ENCOUNTER 2023-09-02 17:16 | Emergency (ER) | payer OTHER, SELFPAY ==
--- NOTE | ~2023-09-02 | CT_ITS ---
Non-contrast CT scan of the Abdomen and Pelvis Clinical indication: Abdominal pain Technique: 2.5 mm axial scans were obtained through the abdomen and pelvis without intravenous or or al contrast. Dose reduction technique was used on this scan by utilizing automated exposure control a nd iterative reconstruction technique. The dose-length product (DLP) was 1974.21 mGy-cm. COMPARISON: 08/25/2023 Findings: Images through the lung bases reveal bibasilar atelectatic change. There is no evidence of renal or ureteral calculi. The kidneys and the ureters are nondilated. The liver, pancreas, and adrenals appear normal. Status post interval cholecystectomy, with low-densi ty area to gallbladder fossa, which could reflect normal postoperative change. Stable splenomegaly, w ith spleen measuring 15.4 cm in length. There is no aortic aneurysm. There is no evidence of bowel obstruction. Small amount of soft tissue gas in the anterior subcutaneo us soft tissues is compatible with postoperative change. Images through the pelvis were performed. There is no evidence of ascites or lymphadenopathy. Urinary bladder unremarkable. No pelvic mass seen. Impression: Status post interval cholecystectomy, with amorphous hypodensity at the gallbladder fossa region katie uring up to 3.4 cm in diameter. This could reflect postoperative change, versus possibility of phlegm on/developing abscess, or possibly small biloma. Correlate clinically. Stable splenomegaly. Reviewed, dictated and finalized at [facility]. Impression: Status post interval cholecystectomy, with amorphous hypodensity at the gallbla dder fossa region measuring up to 3.4 cm in diameter. This could reflect postop erative change, versus possibility of phlegmon/developing abscess, or possibly small biloma. Correlate clinically. Stable splenomegaly.
[2023-09-02 17:16] VITALS: BP 132/94; PULSE 88; RESP 16; TEMP 36.6; O2SAT 99
[2023-09-02 23:27] VITALS: BP 127/75; PULSE 81; RESP 16; TEMP 36.7; O2SAT 98
--- NOTE | 2023-09-02 23:49 | ED.RECABL ---
HPI - Recheck/Abnormal Lab/Rx General Chief Complaint: Recheck/Abnormal Lab/Rx <Nichole Munoz PA-C - Last Filed: 09/03/23 03:44> Stated Complaint: post op infection <Nichole Munoz PA-C - Last Filed: 09/03/23 03:44> Time Seen by Provider: 09/02/23 23:34 <Nichole Munoz PA-C - Last Filed: 09/03/23 03:44> History of Present Illness HPI narrative: 23-year-old female with history of morbid obesity, hypertension, s/p cholecystectomy by Dr. Nick on 08/28/2023 presents with her mother at bedside for concerns for surgical site infection and abdominal pain today. Patient states she began having worsening abdominal pain throughout today with pus draining out of 1 of her surgical incisions on the right side. She denies fever but reports nausea and chills. She is currently on Augmentin for a UTI which she has been taking as prescribed. She denies dysuria or hematuria, known fevers, vomiting. She had diarrhea yesterday that has since resolved. States she took [place] today without improvement. that was her last [place]. <Nichole Munoz PA-C - Last Filed: 09/03/23 03:44> Related Data Home Medications: Home Medications Medication Instructions Recorded Confirmed prazosin 5 mg capsule See Rx Instructions .Route .COMPLEX 01/26/20 08/25/23 buspirone 10 mg tablet 10 mg TID 05/27/22 08/25/23 venlafaxine 75 mg capsule,extended 175 mg PO DAILY 05/27/22 08/25/23 release 24 hr docusate sodium 100 mg capsule 100 mg PO DAILY 08/25/23 08/25/23 (Stool Softener) fluticasone 250 mcg-salmeterol 50 See Rx Instructions .Route 08/25/23 08/25/23 mcg/dose blistr powdr for .COMPLEX PRN sob inhalation (Advair Diskus) lithium carbonate 450 mg 450 mg PO HS 08/25/23 08/25/23 tablet,extended release meloxicam 15 mg tablet 15 mg PO DAILY 08/25/23 08/25/23 trazodone 50 mg tablet 50 mg PO HS 08/25/23 08/25/23 <Nichole Munoz PA-C - Last Filed: 09/03/23 03:44> Allergies/Adverse Reactions: Allergies Allergy/AdvReac Type Severity Reaction Status Date / Time bupropion [From Wellbutrin] Allergy Severe Seizure Verified 08/28/23 10:21 Iodinated Contrast Media Allergy Severe Hives/RED Verified 08/28/23 10:21 FACE <Nichole Munoz PA-C - Last Filed: 09/03/23 03:44> Review of Systems Review of Systems: CONSTITUTIONAL: Denies fever, chills, or sweats. EYES: Denies visual changes, redness, or discharge. ENT: Denies rhinorrhea, congestion, sore throat, or otalgia. CARDIOVASCULAR: Denies chest pain, palpitations, or edema. RESPIRATORY: Denies cough or dyspnea. GASTROINTESTINAL: See HPI GENITOURINARY: Denies dysuria or hematuria. SKIN: see HPI MUSCULOSKELETAL: Denies back pain, joint pain, or myalgia. NEUROLOGIC: Denies headache, numbness, or weakness. PSYCHIATRIC: Denies anxiety or depression. <Nichole Munoz PA-C - Last Filed: 09/03/23 03:44> [facility] Past Medical History Medical History: Medical History Asthma Bipolar disorder Depression with anxiety Hypertension Migraine Morbid obesity Posttraumatic stress disorder Schizophrenic catalepsy <Nichole Munoz PA-C - Last Filed: 09/03/23 03:44> Surgical History Surgical History: Surgical History History of tonsillectomy and adenoidectomy (2011) <Nichole Munoz PA-C - Last Filed: 09/03/23 03:44> Family History Family History: Family History Father High cholesterol Bipolar 1 disorder Depression Mother Bipolar 1 disorder Depression Anxiety OCD (obsessive compulsive disorder) <Nichole Munoz PA-C - Last Filed: 09/03/23 03:44> Social History Social History: Social History Social History: Surrogate medical decision maker: Luna Crawford, mother. Code sta
[2023-09-03] MEDS: KETOROLAC 30 MG/ML VIAL (*BKC) IV PUSH (00:09)
[2023-09-03] MEDS: SODIUM CHLORIDE 0.9% IV 1,000 ML 999 ML IV CONT (00:09)
[2023-09-03] MEDS: ONDANSETRON INJ 4 MG/2 ML VIAL IV PUSH (00:09)
[2023-09-03 00:10] LABS: Basophils Absolute Auto 0.1 K/mm3 (0.0-0.1); Basophils Percent Auto 0.6 % (0.2-1.2); Eosinophils Absolute Auto 0.4 K/mm3 (0-0.3); Eosinophils Percent Auto 2.8 % (0-4.4); Hematocrit 37.2 % (37.0-47.0); Hemoglobin 12.1 g/dL (12.0-15.0); Immature Granulocyte Absolute 0.11 K/mm3 (0.00-0.031); Immature Granulocyte Percent A 0.9 % (0-0.5); Lymphocytes Absolute Auto 4.14 K/mm3 (0.9-3.2); Lymphocytes Percent Auto 33.1 % (18.3-44.2); Mean Corpuscular HGB Conc 32.5 g/dl (32-36); Mean Corpuscular Hemoglobin 27.1 pg (26-34); Mean Corpuscular Volume 83.2 fl (80-100); Mean Platelet Volume 10.2 fl (7.4-10.4); Monocytes Absolute Auto 0.6 K/mm3 (0.1-0.6); Monocytes Percent Auto 5.1 % (2.6-8.5); Neutrophils Absolute Auto 7.2 K/mm3 (1.3-6.7); Neutrophils Percent Auto 57.5 % (45.5-73.1); Platelet Count Result 449 k/mm3 (150-375); Red Blood Count 4.47 M/mm3 (4.2-5.4); Red Cell Distribution Width 15.5 % (11.5-14.5); White Blood Count 12.5 K/mm3 (4.5-10.0)
[2023-09-03 00:29] LABS: Appearance Urine Clear (Clear); Bacteria Urine None Seen /hpf; Bilirubin Urine Negative (Negative); Blood Urine Negative (Negative); Color Urine Yellow (Yellow); Glucose Urine UA Negative (Negative); Ketones Urine Negative (Negative); Leukocyte Esterase Ur Trace LEU/UL (Negative); Nitrate Urine Negative (Negative); Non Pathogenic Casts 0-2; Protein Urine Negative (Negative); RBC Urine 0-2 /hpf (0-2); Specific Grav Ur 1.018 (1.001-1.035); Squamous Epithelial Cell Urine Occasional /hpf (Few); Urobilinogen Urine 0.2 mg/dL (<2.0); WBC Urine 0-5 /hpf (0-3); pH Urine 8.5 (5.0-9.0)
[2023-09-03 00:32] LABS: Lactic Acid Reflex 1.1 mmol/L (0.7-2.0)
[2023-09-03 00:34] LABS: Alanine Aminotransferase 11 U/L (6-35); Albumin Level 3.7 g/dL (3.5-5.1); Alkaline Phosphatase 69 U/L (38-126); Anion Gap 7 mmol/L (4-12); Aspartate Amino Transferase 20 U/L (14-36); Bilirubin,Total 0.6 mg/dL (0.2-1.3); Blood Urea Nitrogen 15 mg/dL (7-17); Calcium 9.2 mg/dL (8.4-10.2); Carbon Dioxide 34 mmol/L (22-30); Chloride 96 mmol/L (98-107); Estimated CRCL calculation 144 ml/min; Estimated Glomerular Filt Rate > 60; Glucose 85 mg/dL (65-110); Lipase 113 U/L (23-300); Potassium 4.1 mmol/L (3.4-5.0); Sodium 137 mmol/L (137-145)
[2023-09-03 00:37] LABS: Add Urine Microscopic? YES
[2023-09-03 02:02] VITALS: BP 138/72; PULSE 81; RESP 14; O2SAT 97
[2023-09-03 04:02] VITALS: BP 130/78; PULSE 81; RESP 14; O2SAT 99
== END 2023-09-03 04:37 | disposition home or self-care (01) ==
PROVIDERS: Physician Assistant; Emergency Provider Emergency Medicine
DX: R10.84 Generalized abdominal pain (principal); J45.909 Unspecified asthma, uncomplicated; F32.A Depression, unspecified; F41.9 Anxiety disorder, unspecified; I10 Essential (primary) hypertension; E66.9 Obesity, unspecified; Z68.43 Body mass index [BMI] 50.0-59.9, adult; F43.10 Post-traumatic stress disorder, unspecified
CPT/HCPCS: 36415; 74176; 80053; 81001; 81025; 83605; 83690; 85025; 96361; 96374; 96375; 99284; J1885; J2405; J7030

== ENCOUNTER 2023-09-07 10:57 | Emergency (ER) | payer OTHER, SELFPAY ==
[2023-09-07 11:07] VITALS: BP 119/72; PULSE 95; PULSE 97; RESP 19; TEMP 36.8; O2SAT 93; O2SAT 97
[2023-09-07 11:34] VITALS: PULSE 89; RESP 15; O2SAT 97
--- NOTE | 2023-09-07 11:48 | ED.GENADULT ---
HPI - General Adult General Chief complaint: Recheck/Abnormal Lab/Rx Stated complaint: worsening cellulitis Time Seen by Provider: 09/07/23 11:05 History of Present Illness HPI narrative: Patient is a 23-year-old female who presents ER for evaluation of a postoperative wound. Recently had a cholecystectomy. There is small dehiscence of a surgical port site in the right upper quadrant. She was started on cephalexin. She has follow-up in 4 days. No fevers or chills. She has been taking [place]/Tylenol/ibuprofen for her discomfort. Related Data Home Medications Medication Instructions Recorded Confirmed prazosin 5 mg capsule See Rx Instructions .Route .COMPLEX 01/26/20 08/25/23 buspirone 10 mg tablet 10 mg TID 05/27/22 08/25/23 venlafaxine 75 mg capsule,extended 175 mg PO DAILY 05/27/22 08/25/23 release 24 hr docusate sodium 100 mg capsule 100 mg PO DAILY 08/25/23 08/25/23 (Stool Softener) fluticasone 250 mcg-salmeterol 50 See Rx Instructions .Route 08/25/23 08/25/23 mcg/dose blistr powdr for .COMPLEX PRN sob inhalation (Advair Diskus) lithium carbonate 450 mg 450 mg PO HS 08/25/23 08/25/23 tablet,extended release meloxicam 15 mg tablet 15 mg PO DAILY 08/25/23 08/25/23 trazodone 50 mg tablet 50 mg PO HS 08/25/23 08/25/23 Allergies Allergy/AdvReac Type Severity Reaction Status Date / Time bupropion [From Wellbutrin] Allergy Severe Seizure Verified 08/28/23 10:21 Iodinated Contrast Media Allergy Severe Hives/RED Verified 08/28/23 10:21 FACE Review of Systems Constitutional: Constitutional: Reports no additional constitutional complaints Gastrointestinal: Gastrointestinal: Reports no additional gastrointestinal complaints Integumentary/Breasts: Skin/Breast: Reports system reviewed and no additional complaints, except as docu PMFSH Past Medical History Medical History Asthma Bipolar disorder Depression with anxiety Hypertension Migraine Morbid obesity Posttraumatic stress disorder Schizophrenic catalepsy Surgical History Surgical History History of tonsillectomy and adenoidectomy (2012) Family History Family History Father High cholesterol Bipolar 1 disorder Depression Mother Bipolar 1 disorder Depression Anxiety OCD (obsessive compulsive disorder) Social History Social History Social History: Surrogate medical decision maker: Luna Crawford, mother. Code status: Full code. Smoking status: Never smoker Alcohol intake: never Substance use: never Substance use type: does not use Do You Feel Safe in your Home?: Yes Lack of Transportation: No Lack of Food: Never True Current Housing: I Have Housing Concerned About Future Housing: No Difficulty Paying Gas/Electric Bills: No Difficulty Paying for Meds: No Currently Unemployed: No Education: Don't Know Difficulty w/ Childcare or Family Care: No Living arrangements: with family Occupation/Education: other Additional occupation/education comments: Disabled Spiritual care concerns: No Exam Narrative: GENERAL: Well-appearing, morbidly obese, and in no acute distress. HEAD: Normocephalic, atraumatic. CHEST: Clear to auscultation. No respiratory distress. HEART: Regular rate and rhythm. Normal peripheral pulses. ABDOMEN: Soft, nontender, nondistended. EXTREMITIES: Normal range of motion. No edema. SKIN: Warm, dry, no rash. Surgical site of concern in the right upper quadrant healing with secondary intention with mild tenderness. No surrounding cellulitis. No fluctuance or drainage. NEURO: Alert and oriented x3. PSYCH: Normal mood and affect. Course Course Emergency Course: Patient given reassurance. Patient reports mild tenderness around the site so we w
[2023-09-07] MEDS: HYDROcodone/acetaminophen (*CRX) 5-325 MG TABLET 1 TAB PO (11:52)
[2023-09-07 12:00] VITALS: BP 111/76; PULSE 86; RESP 20; O2SAT 98
[2023-09-07 12:13] VITALS: BP 113/74; PULSE 86; RESP 18; TEMP 36.8; O2SAT 97
== END 2023-09-07 12:14 | disposition home or self-care (01) ==
PROVIDERS: Emergency Provider Emergency Medicine
DX: T81.89XA Other complications of procedures, not elsewhere classified, initial encounter (principal); Z90.49 Acquired absence of other specified parts of digestive tract; J45.909 Unspecified asthma, uncomplicated; I10 Essential (primary) hypertension; E66.01 Morbid (severe) obesity due to excess calories; Z68.41 Body mass index [BMI] 40.0-44.9, adult; F43.10 Post-traumatic stress disorder, unspecified; F41.8 Other specified anxiety disorders; F20.2 Catatonic schizophrenia; Z79.899 Other long term (current) drug therapy; Y83.6 Removal of other organ (partial) (total) as the cause of abnormal reaction of the patient, or of later complication, without mention of misadventure at the time of the procedure
CPT/HCPCS: 99281; 99283; A9270

== ENCOUNTER 2023-11-23 20:02 | Emergency (ER) | payer OTHER, SELFPAY ==
--- NOTE | ~2023-11-23 | CT_ITS ---
EXAMINATION: CT abdomen pelvis wo con DATE: 11/23/2023 23:22 INDICATION: Flank pain and dysuria. Leukocytosis. TECHNIQUE: Computed tomography (CT) of the abdomen and pelvis was performed without intravenous contr ast. The dose-length product was 1842.32 mGy-cm. Automated exposure control and iterative reconstruct ion technique were employed. COMPARISON: None. FINDINGS: Lung bases unremarkable. Heart size normal. No significant pleural or pericardial effusion. There are hyperdensities in the gallbladder fossa which may represent dropped stones following prior cholecystectomy. The liver, pancreas, adrenal glands and kidneys are unremarkable. Spleen within nor mal limits. No renal/ureteral stones or hydronephrosis. No vascular abnormality. No lymphadenopathy. No abnormal pelvic masses or fluid collections. No acute osseous abnormality. There is levoscoliosis. IMPRESSION: 1. No acute abdominal abnormality. Reviewed, dictated and finalized at location B.
[2023-11-23 20:05] VITALS: BP 137/58; PULSE 90; RESP 15; TEMP 36.2; O2SAT 100
--- NOTE | 2023-11-23 21:48 | ED.FEMALEGU ---
HPI - Female Genitourinary General Chief complaint: Urogenital-Female Stated complaint: my kidneys have been bothering me ; bi-lateral Time Seen by Provider: 11/23/23 21:30 Source: patient Mode of arrival: ambulatory Limitations: no limitations History of Present Illness HPI Narrative: This is a 23-year-old female that presents to the emergency department for bilateral flank pain. Ongoing over the last couple of days. Reports associated dysuria. Denies fevers or vomiting. Related Data Home Medications Medication Instructions Recorded Confirmed buspirone 10 mg tablet 10 mg TID 05/27/22 10/10/23 venlafaxine 75 mg capsule,extended 175 mg PO DAILY 05/27/22 10/10/23 release 24 hr docusate sodium 100 mg capsule 100 mg PO DAILY 08/25/23 10/10/23 (Stool Softener) fluticasone 250 mcg-salmeterol 50 See Rx Instructions .Route 08/25/23 10/10/23 mcg/dose blistr powdr for .COMPLEX PRN sob inhalation (Advair Diskus) lithium carbonate 450 mg 450 mg PO HS 08/25/23 10/10/23 tablet,extended release meloxicam 15 mg tablet 15 mg PO DAILY 08/25/23 10/10/23 Allergies Allergy/AdvReac Type Severity Reaction Status Date / Time bupropion [From Wellbutrin] Allergy Severe Seizure Verified 10/08/23 09:03 Iodinated Contrast Media Allergy Severe Hives/RED Verified 10/08/23 09:03 FACE Review of Systems Review of Systems: CONSTITUTIONAL: Denies fever GASTROINTESTINAL: Reports flank pain. Denies nausea, vomiting, or diarrhea. GENITOURINARY: Reports dysuria. Denies hematuria. All systems reviewed & are unremarkable except as noted in HPI and below [facility] Past Medical History Medical History Asthma Bipolar disorder Depression with anxiety Hypertension Migraine Morbid obesity Posttraumatic stress disorder Schizophrenic catalepsy Surgical History Surgical History History of laparoscopic cholecystectomy 08/28/23 History of tonsillectomy and adenoidectomy (2011) Family History Family History Father High cholesterol Bipolar 1 disorder Depression Mother Bipolar 1 disorder Depression Anxiety OCD (obsessive compulsive disorder) Social History Social History Social History: Surrogate medical decision maker: Luna Crawford, mother. Code status: Full code. Smoking status: Never smoker Alcohol intake: never Substance use: never Substance use type: does not use Do You Feel Safe in your Home?: Yes Lack of Transportation: No Lack of Food: Never True Current Housing: I Have Housing Concerned About Future Housing: No Difficulty Paying Gas/Electric Bills: No Difficulty Paying for Meds: No Currently Unemployed: No Education: Don't Know Difficulty w/ Childcare or Family Care: No Living arrangements: with family Occupation/Education: other Additional occupation/education comments: Disabled Spiritual care concerns: No Exam Narrative: GENERAL: Well-appearing, well-nourished, and in no acute distress. HEAD: Normocephalic, atraumatic. EYES: EOMI. CHEST: Clear to auscultation. No respiratory distress. No wheezes rales or rhonchi HEART: Regular rate and rhythm. No murmur heard. Normal peripheral pulses. ABDOMEN: Soft, nontender, nondistended, normal active bowel sounds. EXTREMITIES: Normal range of motion. No edema. SKIN: Warm, dry, no rash. NEURO: No focal deficits. Alert and oriented x3. PSYCH: Normal mood and affect Course Course Emergency Course: Patient updated on her workup thus far. She does not wish to stay for any further management or the read of her CT scan Vital Signs Vital signs: Vital Signs Temperature 97.1 F L 11/23/23 20:05 Pulse Rate 90 11/23/23 20:05 Respiratory Rate 15 11/23/23 20:05 Blood Pressure 137/58 L 10/27
[2023-11-23 22:11] LABS: Basophils Absolute Auto 0.1 K/mm3 (0.0-0.1); Basophils Percent Auto 0.5 % (0.2-1.2); Eosinophils Absolute Auto 0.1 K/mm3 (0-0.3); Eosinophils Percent Auto 0.7 % (0-4.4); Hematocrit 39.7 % (37.0-47.0); Hemoglobin 13.5 g/dL (12.0-15.0); Immature Granulocyte Absolute 0.12 K/mm3 (0.00-0.031); Immature Granulocyte Percent A 0.6 % (0-0.5); Lymphocytes Absolute Auto 5.67 K/mm3 (0.9-3.2); Lymphocytes Percent Auto 29.5 % (18.3-44.2); Mean Corpuscular Hemoglobin 27.8 pg (26-34); Mean Corpuscular Volume 81.7 fl (80-100); Mean Platelet Volume 10.4 fl (7.4-10.4); Monocytes Absolute Auto 0.9 K/mm3 (0.1-0.6); Monocytes Percent Auto 4.4 % (2.6-8.5); Neutrophils Absolute Auto 12.4 K/mm3 (1.3-6.7); Neutrophils Percent Auto 64.3 % (45.5-73.1); Platelet Count Result 409 k/mm3 (150-375); Red Blood Count 4.86 M/mm3 (4.2-5.4); Red Cell Distribution Width 14.7 % (11.5-14.5); White Blood Count 19.2 K/mm3 (4.5-10.0)
[2023-11-23 22:24] LABS: Anion Gap 11 mmol/L (4-12); Blood Urea Nitrogen 11 mg/dL (7-17); Carbon Dioxide 22 mmol/L (22-30); Chloride 103 mmol/L (98-107); Estimated CRCL calculation 138 ml/min; Estimated Glomerular Filt Rate > 60; Glucose 101 mg/dL (65-110); Potassium 3.5 mmol/L (3.4-5.0); Sodium 136 mmol/L (137-145)
[2023-11-23 22:36] LABS: Add Urine Microscopic? YES; Appearance Urine Turbid (Clear); Bacteria Urine None Seen /hpf; Bilirubin Urine 1+ (Negative); Blood Urine Negative (Negative); Color Urine Dark Yellow (Yellow); Glucose Urine UA Negative (Negative); Ketones Urine Trace mg/dL (Negative); Leukocyte Esterase Ur Negative LEU/UL (Negative); Need Manual Microscopic Reviewed; Nitrate Urine Negative (Negative); Non Pathogenic Casts 0-2; Protein Urine 1+ mg/dL (Negative); Specific Grav Ur > 1.045 (1.001-1.035); Squamous Epithelial Cell Urine Few /hpf (Few); WBC Urine 0-5 /hpf (0-3)
[2023-11-23] MEDS: ACETAMINOPHEN 500 MG TABLET 1000 MG PO (23:29)
[2023-11-25 14:27] LABS: BEDSIDEPREGUCG Negative (Negative)
== END 2023-11-24 01:20 | disposition home or self-care (01) ==
PROVIDERS: Student in an Organized Health Care Education/Training Program; Emergency Provider Physician Assistant; PCP Internal Medicine
DX: R10.9 Unspecified abdominal pain (principal); J45.909 Unspecified asthma, uncomplicated; I10 Essential (primary) hypertension; E66.01 Morbid (severe) obesity due to excess calories; Z68.42 Body mass index [BMI] 45.0-49.9, adult; F43.10 Post-traumatic stress disorder, unspecified; F31.9 Bipolar disorder, unspecified; F41.8 Other specified anxiety disorders; F20.2 Catatonic schizophrenia; Z79.899 Other long term (current) drug therapy; Z90.49 Acquired absence of other specified parts of digestive tract
CPT/HCPCS: 36415; 74176; 80048; 81001; 81025; 85025; 99284; A9270

== ENCOUNTER 2023-12-07 23:36 | Emergency (ER) | payer OTHER, SELFPAY ==
[2023-12-07 23:52] VITALS: BP 124/69; PULSE 110; RESP 20; TEMP 36.8; O2SAT 100
--- NOTE | 2023-12-08 01:29 | PC.NURSE ---
Patient decided to leave without being seen by provider.
== END 2023-12-08 01:30 | disposition left against medical advice (07) ==
LOC: ANHED 12-08 02:00
PROVIDERS: PCP Internal Medicine
DX: K92.1 Melena (principal)
CPT/HCPCS: 99199

== ENCOUNTER 2024-05-17 21:23 | Emergency (ER) | payer OTHER, SELFPAY ==
[2024-05-17 21:25] VITALS: BP 142/98; PULSE 86; RESP 20; TEMP 36.4; O2SAT 99
--- OUTSIDE RECORDS SUMMARY | 2024-05-17 21:25 | XMS_ITS ---
Author Organization [facility] Address [address] [place] [address] Care Team Providers Care Edge Polisher Name Role Phone Jenae Nicole Primary Care Provider REASON FOR VISIT Vraylar Social History Sex Assigned At : Social History Observation Description Sex Assigned At Female Encounters Encounter Location Date Provider Diagnosis [facility] [address] [place] [address] 05/07/2024 Jenae Nicole Plan Of Treatment No Information Progress Notes * Kaylee JAINDOB:[birth year] (23 yo F)Acc No.[id number]:05/07/2024 Patient: Stu PRICEHINA Kaylee :2000 A ge:23 Y S ex:Female Address:[address], [address] * true * Date: Generated for Printi ng/Faxing/eTransmitting on: 0 05/17/2024 09:25 PM CDT
--- OUTSIDE RECORDS SUMMARY | 2024-05-17 21:26 | XMS_ITS | Encounter Summary ---
Author Organization [facility] Address [address] [place] [address] Phone Care Team Providers Care Manager Of Housekeeping Name Role Phone Tony Fonseca MD Primary Care Provider [phone] Reason for Referral * PT/OT/ST (Routine) - Authorized Specialty Diagnoses / Procedures Referred By Contkeri t Referred To Contact Physical Therapy Diagnoses Lymphedema of lower extremity Tony Fonseca MD [facility] [place] [address] Phone: tel: [facility]: [facility] [address] [address] Phone: tel: fax: Referral ID Status Reason Start Date Expiration Date V isits Requested Visits Authorized [id number] Authorized 10/23/2023 50 60 Scheduling Instructions Encounter Details Date Type Department Care Team (Latest Contact Info) Description 10/23/2023 Transcribe Orders [facility] [address] [place] [address] Tony Fonseca MD [address] [place] [address] Lymphedema of lower extremity (Primary Dx) Social History Tobacco Use Types Packs/Day Years Used Date Smoking Tobacco: Never Assessed Comments Unknown Sex and Gender Information Value Date Recorded Sex Assigned at Not on file Legal Sex Female 9:55 AM CDT Gender Identity Not on file Sexual Orientation Not on file documented as of this encounter Plan of Treatment Upcoming Encounters Date Type Department Care Team (Late st Contact Info) Description 05/26/2024 1:40 PM CDT [facility] [address] [place] [address] Zoie Jeong July, PAC [address] [place] [address] Discharge Disposition: Discharged to home or Selfcare 06/09/2024 1:40 PM CDT Office Visit [facility] [address] [place] [address] Zoie Jeong July, PAC [address] [place] [address] Discharge Disposition: Discharged to home or Selfcare Scheduled Referrals Name Type Priority Associated Diagnoses Orde r Schedule PHYSICAL THERAPY REFERRAL Outpatient Referral Routine Lymphedema of lower extremity Expected: 10/23/2023, Expires: 10/22/2024 documented as of this encounter Visit Diagnoses Diagnosis Lymphedema of lower extremity- Primary Other lymphedema documented in this encounter Care Teams Manager Of Housekeeping Relationship Specialty [place] [address] [place] [id number] PCP - General Internal Medicine 10/23/23 documented as of this encounter
--- OUTSIDE RECORDS SUMMARY | 2024-05-17 21:26 | XMS_ITS ---
Author Organization [facility] Address [address] [place] [address] Care Team Providers Care Community Mental Health Worker Name Role Phone Jenae Nicole Primary Care Provider [phone] Allergies Allergen (clinical drug ingredient) Drug/Non Drug Allergy documented on EMR Reaction Allergy Type Onset Date Status bupropion Bupropion Muscle Spasms Drug Allergy Act ashley buspirone Buspirone Muscle Spasms Drug Allergy Act ashley Iodinated contrast media (substance) Iodinated Diagnostic Agents Unknown Drug Allergy Active lurasidone Lurasidone nausea and vomiting Drug Allergy Active REASON FOR VISIT Lamictal rash; 3 week f/u Medications Medication SIG (Take, Route, Frequency, Duration) Notes Start Date End Date Status cloNIDine HCl 0.1 MG 1 tablet Orally Once a day for 30 days for anxiety 05/04/2024 Active Vraylar 3 MG as directed Orally e very other day for 3 doses (6 days) then increase to daily for 30 days 05/04/2024 Active Escitalopram Oxalate 20 MG 1 tablet Oral ly Once a day for 7 days Active Acetaminophen 500 MG 1 tablet as needed Orally every 6 hrs Active Metoprolol Succinate ER Active Vraylar 1.5 MG as directed Orally o ne capsule every other day for 3 doses (6 days) then increase to daily x 3 days then start the 3mg script for 9 days 05/04/2024 Active Prazosin HCl 1 MG as directed Orally o nce daily at night x 3 days then increase to 2 capsules at night for 30 days 05/04/2024 Active Ziprasidone HCl 40 MG 1 capsule with kem d Orally Twice a day for 7 days then stop this medication for 7 days Active traZODone HCl 50 MG 2 tablet at bedtime Orally Once a day for 30 days As needed Active Social History Tobacco Use: Social History Observation Description Date Details (start date - stop date) Never Smoker NA - NA Sex Assigned At : Social History Observation Description Sex Assigned At Female Tobacco Control (Standard) Question Answer Notes Tobacco use: Nonsmoker Additional Findings: Tobacco non-user Cu rrent nonsmoker,Nonsmoker for personal reasons Vital Signs Weight 304 lbs lbs 05/04/2024 Height 66.5 in in 05/04/2024 BMI 48.33 kg/m2 05/04/2024 Blood pressure systolic 124 mm Hg 05/05/19 25 Blood pressure diastolic 88 mm Hg 025 Heart Rate 92 /min 05/04/2024 Oximetry 99 % 05/04/2024 Respiratory Rate 16 /min 05/04/2024 Encounters Encounter Location Date Provider Diagnosis [address] [place] [address] 05/04/2024 Jenae Nicole Nutritional counseling Z71.3 ; PTSD (post-traumatic stress disorder) F43.10 ; Bipolar affective disorder, depressed, severe, with psychotic behavior F31.5 and Medication monitoring encounter Z51.81 Assessments Encounter Date Diagnosis (ICD Code) Assessment Notes Treatment Notes Treatment Clinical Notes Section Notes 05/04/2024 Nutritional counseling (ICD-10 - Z71.3) 05/04/2024 PTSD (post-traumatic stress disorder) (ICD-10 - F43.10) Prazosin previously on and stopped with client having return of nightmares, restarting. Clonidine for anxiety. Client to monitor B/P. She v/u. Lexapro, Celexa both with little to no improvement, continued SI- decrease Lexapro to 10mg daily for 3 days then stop this med. 05/04/2024 Bipolar affective disorder, depressed, severe, with psychotic behavior (ICD-10 - F31.5) working diagnosis r/o MDD with psychotic features Starting Vraylar, see clinical notes for past trials. Take as prescribed. Reviewed purpose (mood stability, hallucinations), benefits, and risks - low blood pressure, metabolic syndrome with high cholesterol or high blood sugars, change in cardiac conduction, nausea, vomiting, temporary or permanent movement disorders, and akathisia. Risperidone with low efficacy and weight gain and increased prolactin Abilify with low efficacy at high doses. Latuda with nausea and vomiting. Geodon with worsened mood 05/04/2024 Medication monitoring encounter (ICD-10 - Z51.81) 05/04/2024 Other Reasons, potential benefits, potential risks, interactions and side effects of all medications were discussed. The Patient/Guardian asked appropriate questions, appeared to understand the answers, and decided to accept the treatment and continue being followed. Alternatives and expected course without treatment were reviewed. The Patient/Guardian is aware of the need to contact the office or return for an earlier appointment if any problems or concerns arise. May also contact the 24-hour crisis hotline ([facility]), refer to the closest emergency room or call 911 if new symptoms arise of existing symptoms worsen. The Patient/Guardian is aware that this would apply to symptoms like: suicidal ideation, homicidal ideation, high risk behaviors, manic symptoms, psychotic symptoms, physical symptoms, or any other symptoms that may be dangerous to self or others. Greater than 50% of time spent on coordination and counseling where psychopharmacology as well as psychotherapeutic interventions were discussed along with review of treatments in the past. Education provided concerning need for adequate hydration. Patient/Guardian verbalized understanding of education, treatment plan and follow up. Plan Of Treatment Medication Medication Name Sig Start Date Stop Date Notes cloNIDine HCl 0.1 MG 1 tablet Orally Onc e a day for 30 days 05/04/2024 Vraylar 3 MG as directed Orally e very other day for 3 doses (6 days) then increase to daily for 30 days 05/04/2024 Vraylar 1.5 MG as directed Orally o ne capsule every other day for 3 doses (6 days) then increase to daily x 3 days then start the 3mg script for 9 days 05/04/2024 Prazosin HCl 1 MG as directed Orally o nce daily at night x 3 days then increase to 2 capsules at night for 30 days 05/04/2024 lamoTRIgine 25 MG 1 tablet Orally One tablet (25 mg) once daily for two weeks then increase to two tablets once daily (50 mg) for 30 days Ziprasidone HCl 40 MG 1 capsule with kem d Orally Twice a day for 7 days then stop this medication for 7 days traZODone HCl 50 MG 2 tablet at bedtime Orally Once a day for 30 days Treatment Notes Assessment Notes PTSD (post-traumatic stress disorder) Prazosin previously on and stopped with client having return of nightmares, restarting. Clonidine for anxiety. Client to monitor B/P. She v/u. Bipolar affective disorder, depressed, severe, with psychotic behavior Starting Vraylar, see clinical notes for past trials. Take as prescribed. Reviewed purpose (mood stability, hallucinations), benefits, and risks - low blood pressure, metabolic syndrome with high cholesterol or high blood sugars, change in cardiac conduction, nausea, vomiting, temporary or permanent movement disorders, and akathisia. Other Reasons, potential benefits, potential risks, interactions and side effects of all medications were discussed. The Patient/Guardian asked appropriate questions, appeared to understand the answers, and decided to accept the treatment and continue being followed. Alternatives and expected course without treatment were reviewed. The Patient/Guardian is aware of the need to contact the office or return for an earlier appointment if any problems or concerns arise. May also contact the 24-hour crisis hotline ([facility]), refer to the closest emergency room or call 911 if new symptoms arise of existing symptoms worsen. The Patient/Guardian is aware that this would apply to symptoms like: suicidal ideation, homicidal ideation, high risk behaviors, manic symptoms, psychotic symptoms, physical symptoms, or any other symptoms that may be dangerous to self or others. Greater than 50% of time spent on coordination and counseling where psychopharmacology as well as psychotherapeutic interventions were discussed along with review of treatments in the past. Education provided concerning need for adequate hydration. Patient/Guardian verbalized understanding of education, treatment plan and follow up. Next Appt Details Follow Up: 3 Weeks, Reason: Psych F/U in-office Progress Notes * Kaylee JAINDOB:[birth year] (23 yo F)Acc No.[id number]:05/04/2024 Patient: Sania SENAlin Provider: Cydney Nicole, TIFFANIE, ASSOCIATE CONSULTING ENGINEER, REPAIRER SASH AND DOOR-C :2000 A ge:23 Y S ex:Female Date:05/04/2024 Address:[facility] [address], [id number] Subjective: * Chief Complaints: * L amictal rash; 3 week f/u * HPI: S creening: [place] Suicide Severity Rating Scale (LF) D o you want to initiate with S creener form, 1 . Wish to be : Have you wished you were or wished you could go to sleep and not wake up? N o, 2 . Suicidal Thoughts: Have you actually had any thoughts of killing yourself? N o, 6 . Suicide Behavior Question: Have you ever done anything,started to do anything, or prepared to end your life? N o, I nterpretation: L ow Risk. C SSRS Interpretation and Follow Up Plan: CSSRS Interpretation and Follow Up Plan C SSRS Screen documented using SF Y es, R isk Disposition from SF L ow - No Follow Up Plan Required, F ollow Up Plan N o Follow Up Plan required at this time.. D epression Screening: PHQ-9 L ittle interest or pleasure in doing things N early every day, F eeling down, depressed, or hopeless N early every day, T rouble falling or staying asleep, or sleeping too much N early every day, F eeling tired or having little energy S everal days, P oor appetite or overeating N early every day, F eeling bad about yourself or that you are a failure, or have let yourself or your family down N early every day, T rouble concentrating on things, such as reading the newspaper or watching television N ot at all, M oving or speaking so slowly that other people could have noticed; or the opposite, being so fidgety or restless that you have been moving around a lot more than usual N ot at all, T houghts that you would be better off or of hurting yourself in some way N ot at all, T otal Score 1 6, I nterpretation M oderately Severe Depression. I ntervention D epression Screening Findings P ositive, F ollow-Up for Depression N o Referral necessary, patient involved in behavioral health treatment .. M ood Disorder Questionnaire 08-16-21: Please answer each question to the best of your ability. Questions P lease answer each question to the best of your ability. H as there ever been a time period when you were not your usual self and..., Y ou felt so good or hyper that other people thought you were not your normal self or you were so hyper that you got into trouble? N o ., Y ou were so irritable that you shouted at people or started fights or arguments? Y es ., Y ou got much less sleep than usual and found that you didn't really miss it? N o ., Y ou felt much more self-confident than usual? Y es ., Y ou were more talkative or spoke much faster than usual? Y es ., T houghts raced through your head or you couldn't slow your mind down? Y es ., Y ou were so easily distracted by things around you that you had trouble concentrating or staying on track? N o ., Y ou had more energy than usual? Y es ., Y ou were more active or did many more things than usual? Y es ., You were more social or outgoing than usual, for example, you telephoned friends in the middle of the night? Y es ., Y ou were more interested in sex than usual? Y es ., Y ou did things that were usual for you or that other people might have thought were excessive, foolish, or risky? N o ., S pending money got you or your family in trouble? N o ., I f you checked YES to more than one of the above, have several of these ever happened during the same period of time? Y es ., H ow much of a problem did any of these cause you - like being unable to work; having family, money or legal troubles; getting into arguments or fights? M oderate problem ..? P sychiatric Assessment - Current Symptoms: How ct. doing today? Client is a 23 yo F in office reporting she has not been well. Depression: 12/04 Anxiety: 12/04 Reports restlessness States that she has been taking meds, stopped Lamictal due to rash. Lots of stress, nightmares, flashbacks Not sleeping well Depression and anger/irritability, Lots of voices and visions. Voices: My granny's voice, kill yourself, kill or hurt other people, things like that. States when I get mad I can hit someone. Appetite: Not good lately. Reports eating like every other day. Reports SI, denies plan or intent. States last thoughts of intent were over a month ago. Reports HI at times. Denies plan or intent. * ROS: P sych ROS: Constitutional D enies. E yes D enies. E ars/Nose/Mouth/Throat D enies. R espiratory D enies. A llergic/Immunologic D enies.?Cardiovascular R eports, H TN. G I D enies. G U D enies. M usculoskeletal D enies. N eurological Denies. I ntegumentary D enies. E ndocrine D enies. H ematological/Lymphatic?Reports, l ymphedema. P sych R eports depression, anxiety, AVH. . * Medical History: * Surgical History: c holecystectomy 07/2023tonsillectomy and adenoidectomy * Hospitalization/Major Diagno stic Procedure: s ee surgery * Family History: F ather: alive. M other: alive. 1 sister(s) - healthy. . Mom: alive, bipolar, depression, anxiety, PTSD Dad: alive, no MH dx that client is aware of Siblings: alive, anxiety and depression, asthma. * Social History: P pema Social History: L iving Arrangement L iving Arrangement: D ependent Living with boyfriend's mom, I s this a supportive environment? Y es. A lcohol Use A lcohol Use Frequency: N ever. Illicit Substance Usage I llicit Substance Usage: N o. E mployment Status E mployment Status: U nemployed. T obacco Use: T obacco Control (Standard) T obacco use: N onsmoker, A dditional Findings: Tobacco non-user C urrent nonsmoker,Nonsmoker for personal reasons. * Medications: T akingMetoprolol Succinate ER Acetaminophen 500 MG Tablet 1 tablet as needed Orally every 6 hrs Escitalopram Oxalate 20 MG Tablet 1 tablet Orally Once a day traZODone HCl 50 MG Tablet 1.5 tablet at bedtime Orally Once a day As neededZiprasidone HCl 60 MG Capsule 1 capsule with food Orally Twice a day Taking Metoprolol Succinate ER Taking Acetaminophen 500 MG Tablet 1 tablet as needed Orally every 6 hrs Taking Escitalopram Oxalate 20 MG Tablet 1 tablet Orally Once a day Taking traZODone HCl 50 MG Tablet 1.5 tablet at bedtime Orally Once a day As neededTaking Ziprasidone HCl 60 MG Capsule 1 capsule with food Orally Twice a day DiscontinuedlamoTRIgine 25 MG Tablet 1 tablet Orally One tablet (25 mg) once daily for two weeks then increase to two tablets once daily (50 mg) Medication List reviewed and reconciled with the patientDiscontinued lamoTRIgine 25 MG Tablet 1 tablet Orally One tablet (25 mg) once daily for two weeks then increase to two tablets once daily (50 mg) Medication List reviewed and reconciled with the patient * Allergies: B uspirone: Muscle Spasms - AllergyIodinated Diagnostic Agents: AllergyBupropion: Muscle Spasms - AllergyLurasidone: nausea and vomiting - Side Effectsno[Allergies Verified] Objective: * Vitals: I nitials: sle, Wt:304 lbs, Ht: 66.5 in, BMI:48.33, BP:124/88, HR:92, Oxygen sat %:99, RR:16, LMP: 04/2024, Pain scale:0. * Examination: M ental Status Exam: SENSORIUM AND COGNITION Alert, Oriented to Person, Oriented to Place, Oriented to Time, Oriented to Situation. ATTENTION AND CONCENTRATION No deficits. APPEARANCE A ppropriate, Neatly dressed and groomed, Appears stated age. ATTITUDE AND BEHAVIOR Cooperative, Receptive. MEMORY Immediate, Recent, Remote. EYE CONTACT G ood. AFFECT B road/Full. MOOD Euthymic. SPEECH QUANTITY Appropriate. SPEECH QUALITY Appropriate volume, speech impediment noted. THOUGHT PROCESS C oherent and goal directed. THOUGHT CONTENT A ppropriate - WNL. MOTOR ACTIVITY N ormal gait, Goal directed, No abnormal movements or tics noted. SUICIDAL IDEATION D enies suicidal ideation, Denies self-harm activities. HOMICIDAL IDEATION A dmits to homicidal ideation, but denies plan, person, place, or intent. HALLUCINATIONS A uditory, Visual. INSIGHT F air. JUDGMENT F air. FUND OF KNOWLEDGE F air-poor. ABILITY TO PARTICIPATE IN TREATMENT M oderate. WILLINGNESS TO PARTICIPATE IN TREATMENT H igh. ? Assessment: * Assessment: 1. N utritional counseling - Z71.3 (Primary) 2 . P TSD (post-traumatic stress disorder) - F43.10 3 . B ipolar affective disorder, depressed, severe, with psychotic behavior - F31.5 N otes :working diagnosis r/o MDD with psychotic features 4 . M edication monitoring encounter - Z51.81 Plan: * Treatment: 2. B ipolar affective disorder, depressed, severe, with psychotic behavior Increase traZODone HCl Tablet, 50 MG, 2 tablet at bedtime, Orally, Once a day As needed, 30 days, 60 Tablet, Refills 0; D ecrease Ziprasidone HCl Capsule, 40 MG, 1 capsule with food, Orally, Twice a day for 7 days then stop this medication, 7 days, 14, Refills 0; S top lamoTRIgine Tablet, 25 MG, 1 tablet, Orally, One tablet (25 mg) once daily for two weeks then increase to two tablets once daily (50 mg), 30 days, 50; S tart Vraylar Capsule, 1.5 MG, as directed, Orally, one capsule every other day for 3 doses (6 days) then increase to daily x 3 days then start the 3mg script, 9 days, 6, Refills 0; S tart Vraylar Capsule, 3 MG, as directed, Orally, every other day for 3 doses (6 days) then increase to daily, 30 days, 30, Refills 0. Notes: Starting Vraylar, see clinical notes for past trials. Take as prescribed. Reviewed purpose (mood stability, hallucinations), benefits, and risks - low blood pressure, metabolic syndrome with high cholesterol or high blood sugars, change in cardiac conduction, nausea, vomiting, temporary or permanent movement disorders, and akathisia. Clinical Notes: Risperidone with low efficacy and weight gain and increased prolactin Abilify with low efficacy at high doses. Latuda with nausea and vomiting. Geodon with worsened mood 3. O thers Notes: Reasons, potential benefits, potential risks, interactions and side effects of all medications were discussed. The Patient/Guardian asked appropriate questions, appeared to understand the answers, and decided to accept the treatment and continue being followed. Alternatives and expected course without treatment were reviewed. The Patient/Guardian is aware of the need to contact the office or return for an earlier appointment if any problems or concerns arise. May also contact the 24-hour crisis hotline (R), refer to the closest emergency room or call 911 if new symptoms arise of existing symptoms worsen. The Patient/Guardian is aware that this would apply to symptoms like: suicidal ideation, homicidal ideation, high risk behaviors, manic symptoms, psychotic symptoms, physical symptoms, or any other symptoms that may be dangerous to self or others. Greater than 50% of time spent on coordination and counseling where psychopharmacology as well as psychotherapeutic interventions were discussed along with review of treatments in the past. Education provided concerning need for adequate hydration. Patient/Guardian verbalized understanding of education, treatment plan and follow up. * Recommended Wellness and Pre vention Guidelines: * S tatus A lert L ast Done N ext Due A ction Taken N ONCOMPLIANT A lcohol use screening - 0 05/04/2024 - N ONCOMPLIANT C ervical cancer screening - 0 05/04/2024 - N ONCOMPLIANT D epression followup 0 04/13/2024 0 05/04/2024 - N ONCOMPLIANT F irst dose - 0 05/04/2024 - N ONCOMPLIANT H IV screening - 0 05/04/2024 - N ONCOMPLIANT P ap +CtNg - 0 05/04/2024 - N ONCOMPLIANT T etanus - 0 05/04/2024 - * Procedure Codes: 3 008F BODY MASS INDEX [id number] MEDICAL NUTRITION, INDIV, [id number] TOBACCO NON-USER * Preventive Medicine: Counseling: C are goal follow-up plan: B CT management provided Y es, A mian Normal BMI Follow-up L ifestyle education regarding diet. * Follow Up: 3 Weeks (Reason: Psych F/U in-office) * * Sign off status: Completed true * Provider: Cydney Nicole, MSN, ASSOCIATE CONSULTING ENGINEER, REPAIRER [employer]ASH AND DOOR-C Date: 0 05/04/2024 Generated for John singh/Alcides/Steff on: 0 05/17/2024 09:26 PM CDT History and Physical Notes * HPI (History of Present Illness) Category Sub-Category Detail Notes Category Not es Depression Screening PHQ-9 Little inte rest or pleasure in doing things: Nearly every day Feeling down, depressed, or hopeless: Ne terri every day Trouble falling or staying asleep, or sl eeping too much: Nearly every day Feeling tired or having little energy: S everal days Poor appetite or overeating: Nearly ever y day Feeling bad about yourself o r that you are a failure, or have let yourself or your family down: Nearly every day Trouble concentrating on thi ngs, such as reading the newspaper or watching television: Not at all Moving or speaking so slowly that other people could have noticed; or the opposite, being so fidgety or restless that you have been moving around a lot more than usual: Not at all Thoughts that you would be b candice off or of hurting yourself in some way: Not at all Total Score: 16 Interpretation: Moderately Severe Depres soraida Intervention Depression Screening Findings: P ositive Follow-Up for Depression: No Referral necessary, patient involved in behavioral health treatment . Psychiatric Assessment - Current Symptoms How ct. doing today? Client is a 23 yo F in office reporting she has not been well. Depression: 12/04 Anxiety: 12/04 Reports restlessness States that she has been taking meds, stopped Lamictal due to rash. Lots of stress, nightmares, flashbacks Not sleeping well Depression and anger/irritability, Lots of voices and visions. Voices: My granny's voice, kill yourself, kill or hurt other people, things like that. States when I get mad I can hit someone. Appetite: Not good lately. Reports eating like every other day. Reports SI, denies plan or intent. States last thoughts of intent were over a month ago. Reports HI at times. Denies plan or intent. Screening [place] Suicide Severity Rating Scale (LF) Do you want to initiate with: Screener form 1. Wish to be : Have you wished you were or wished you could go to sleep and not wake up?: No 2. Suicidal Thoughts: Have you actually had any thoughts of killing yourself?: No 6. Suicide Behavior Question: Have you ever done anything,started to do anything, or prepared to end your life?: No Interpretation:: Low Risk Mood Disorder Questionnaire 08-16-21 Questions Please answer each question to the best of your ability.: Has there ever been a time period when you were not your usual self and... You felt so good or hyper th at other people thought you were not your normal self or you were so hyper that you got into trouble?: No . You were so irritable that y ou shouted at people or started fights or arguments?: Yes . You got much less sleep than usual and found that you didn't really miss it?: No . You felt much more self-confident than u sual?: Yes . You were more talkative or spoke much fa ster than usual?: Yes . Thoughts raced through your head or you couldn't slow your mind down?: Yes . You were so easily distracte d by things around you that you had trouble concentrating or staying on track?: No . You had more energy than usual?: Yes . You were more active or did many more th ings than usual?: Yes . You were more social or outg oing than usual, for example, you telephoned friends in the middle of the night?: Yes . You were more interested in sex than usu al?: Yes . You did things that were usu al for you or that other people might have thought were excessive, foolish, or risky?: No . Spending money got you or your family in trouble?: No . If you checked YES to more t claudio one of the above, have several of these ever happened during the same period of time?: Yes . How much of a problem did an y of these cause you - like being unable to work; having family, money or legal troubles; getting into arguments or fights?: Moderate problem . CSSRS Interpretation and Follow Up Plan CSSRS Interpretation and Follow Up Plan CSSRS Screen documented using SF: Yes Risk Disposition from SF: Low - No Follo w Up Plan Required Follow Up Plan: No Follow Up Plan requir ed at this time. Examination Category Sub-Category Detail Notes Category Not es Mental Status Exam SENSORIUM AND COGNITION Alert , Oriented to Person, Oriented to Place, Oriented to Time, Oriented to Situation ATTENTION AND CONCENTRATION No deficits APPEARANCE Appropriate, Neatly dressed and groomed, Appears stated age ATTITUDE AND BEHAVIOR Cooperative, [employer] tive MEMORY Immediate, Recent, R emote EYE CONTACT Good AFFECT Broad/Full MOOD Euthymic SPEECH QUANTITY Appropriate SPEECH QUALITY Appropriate volume, speech impediment noted THOUGHT PROCESS Coherent and goal di rected THOUGHT CONTENT Appropriate - WNL MOTOR ACTIVITY Normal gait, Goal di rected, No abnormal movements or tics noted SUICIDAL IDEATION Denies suicidal idea tion, Denies self-harm activities HOMICIDAL IDEATION Admits to homicidal ideation, but denies plan, person, place, or intent HALLUCINATIONS Auditory, Visual INSIGHT Fair JUDGMENT Fair FUND OF KNOWLEDGE Fair-poor ABILITY TO PARTICIPATE IN TREATMENT Mode rate WILLINGNESS TO PARTICIPATE IN TREATMENT High
--- OUTSIDE RECORDS SUMMARY | 2024-05-17 21:26 | XMS_ITS | CONTINUITY OF CARE DOCUMENT ---
Author Name leatha zhang Address Unknown Organization [facility] Office Address [address] [place] [address] [address] [place] [address] Phone [phone] Care Team Providers Care Composite Engineer Name Role Phone [facility] ROBISON, Lc Unavailable MICK ROBISON, JALEN Han Unavailable [phone] INSURANCE PROVIDERS Payer name Policy type / Coverage type [place] red green party ID [employer] [place] [id number]
--- OUTSIDE RECORDS SUMMARY | 2024-05-17 21:26 | XMS_ITS | Clinical Summary ---
Author Organization [facility] Address [address] [place] [address] Phone Care Team Providers Care Building Operator Name Role Phone Tony Fonseca MD Primary Care Provider [phone] Allergies Active Allergy Reactions Criticality Noted Date Comments Iodinated Contrast Media Rash Low 05/26/2013 itchy Lamotrigine Rash 05/12/2024 Medications albuterol 108 (90 Base) MCG/ACT Aerosol Solution take 1 Puff by inhalation every 6 hours as needed. 7 Active montelukast (SINGULAIR) 10 MG Tablet Take 1 Tablet by mouth daily. Active traZODone (DESYREL) 100 MG Tablet Take 100 mg by mouth nightly. Active metoprolol Succinate (TOPROL-XL) 100 MG TABLET SR 24 HR Take 1 Tablet by mouth daily. Active Cariprazine HCl (Vraylar) 3 MG Capsule Take 3 mg by mouth daily. Active OMEPRAZOLE PO Take 40 mg by mouth daily. Active prazosin (MINIPRESS) 2 MG Capsule Take 2 mg by mouth nightly. Active cetirizine (ZyrTEC) 10 MG Tablet Take 10 mg by mouth daily. Active cloNIDine (CATAPRES) 0.1 MG Tablet Take 0.1 mg by mouth daily. Active sucralfate (CARAFATE) 1 GM Tablet Take 1 g by mouth. AT MEALS AND BEDTIME 5 Active Active Problems Problem Noted Date Diagnosed Date Leukocytosis 05/12/2024 Thrombocytosis 05/12/2024 Encounters Date Type Department Care Team Description 05/12/2024 1:20 PM CDT [facility] [address] [place] [address] Zoie Jeong July, MARKO Leukocytosis, unspecified type (Primary Dx); Thrombocytosis Discharge Disposition: Discharged to home or Selfcare 05/12/2024 Travel from Last 3 Months Family History Medical History Relation Name Comments Cancer Maternal Grandmother Diabetes Paternal Grandmother Relation Name Status Comments Maternal Grandmother Paternal Grandmother Social History Tobacco Use Types Packs/Day Years Used Date Smoking Tobacco: Never Passive Smoke Exposure: Never Smokeless Tobacco: Never Alcohol Use Standard Drinks/Week Comments Never 0 (1 standard drink = 0.6 oz pur e alcohol) Comments No Sex and Gender Information Value Date Recorded Sex Assigned at Not on file Legal Sex Female 9:55 AM CDT Gender Identity Not on file Sexual Orientation Not on file Last Filed Vital Signs Vital Sign Reading Time Taken Comments Blood Pressure 132/90 05/12/2024 12:59 PM CDT Pulse 87 05/12/2024 12:59 PM CDT Temperature 36.6 C (97.9 F) 05/12/2024 12:59 PM CDT Respiratory Rate 20 05/12/2024 12:5 9 PM CDT Oxygen Saturation 95% 05/12/2024 12: 59 PM CDT Inhaled Oxygen Concentration - - Weight 139.6 kg (307 lb 11.2 oz) 2024 12:59 PM CDT Height 167.6 cm (5' 6 ) 05/12/2024 12:5 9 PM CDT Body Mass Index 49.66 05/12/2024 12:59 PM CDT Plan of Treatment Upcoming Encounters Date Type Department Care Team (Late st Contact Info) Description 05/26/2024 1:40 PM CD[facility] [address] [place] [address] Zoie Jeong Meagan, MARKO [address] [place] [address] Discharge Disposition: Discharged to home or Selfcare 06/09/2024 1:40 PM CDT [facility] [address] [place] [address] Zoie Jeong Meagan, PAC [address] [place] [address] Discharge Disposition: Discharged to home or Selfcare Health Maintenance Due Date Last Done Comments Hepatitis C Virus (HCV) Screening 2000 Pap Smear 2021 Influenza Immunization (#1) 2023 09/0 06/2022, 11/26/2019, 12/11/2018, Additional history exists SARS-COV-2 Immunization (2023- season) 2023 12/08/2020, 11/17/2020 Respiratory Syncytial Virus (RSV) Immunization (Adult) (1 - 1-dose 75+ series) 05/10/2075 Hepatitis B Immunization Completed 002, 2000, 2000, Additional history exists Pneumococcal Immunization Combined Aged Out 06/19/2001, 06/19/2001, 2000, Additional history exists No longer eligible based on patient's age to complete this topic Human Papillomavirus (HPV) Immunization Completed 08/05/2015, 11/25/2014 TdaP Immunization Completed 08/11/2016, 11/11/2012 Meningococcal Immunization (ACWY) Completed 01/03/2017, 11/25/2014 Rotavirus Immunization Aged Out No lo nger eligible based on patient's age to complete this topic Procedures Procedure Name Priority Date/Time Associated Diagnosis Comments CT - ABDOMEN/PELVIS 05/07/2024 12:00 AM CDT from Last 3 Months Results * CT - ABDOMEN/PELVIS (05/07/2024 12:00 AM CDT) 05/07/2024 us Provider Scan IMG CT ORDERABLES Final Result SCAN from Last 3 Months Insurance MEDICAID AETNA [facility] Care Teams Building Operator Relationship Specialty Start Date End Date Tony Fonseca MD [address] [place] [address] PCP - General Internal Medicine 10/23/23
--- OUTSIDE RECORDS SUMMARY | 2024-05-17 21:26 | XMS_ITS ---
Author Organization [facility] Address [address] [place] [address] Care Team Providers Care Production Mechanic Tin Cans Name Role Phone Jenae Nicole Primary Care Provider REASON FOR VISIT message Social History Sex Assigned At : Social History Observation Description Sex Assigned At Female Encounters Encounter Location Date Provider Diagnosis [address] [place] [address] 05/05/2024 Jenae Nicole Plan Of Treatment No Information Progress Notes * Kaylee JAINDOB:[birth year] (23 yo F)Acc No.[id number]:05/05/2024 Patient: Stu PRICEHINASaniaDornsife :2000 A ge:23 Y S ex:Female Address:[address], [address] * true * Date: Generated for Printi ng/Faxing/eTransmitting on: 0 05/17/2024 09:26 PM CDT
--- OUTSIDE RECORDS SUMMARY | 2024-05-17 21:26 | XMS_ITS | Patient Health Record ---
Author Organization [facility] Address [address] [place] [address] Care Team Providers Care Grinder Lap Name Role Phone Jenae Nicole Primary Care Provider [phone] [phone] Allergies Allergen (clinical drug ingredient) Drug/Non Drug Allergy documented on EMR Reaction Allergy Type Onset Date Status bupropion Bupropion Muscle Spasms Drug Allergy Act ashley buspirone Buspirone Muscle Spasms Drug Allergy Act ashley Iodinated contrast media (substance) Iodinated Diagnostic Agents Unknown Drug Allergy Active lurasidone Lurasidone nausea and vomiting Drug Allergy Active Reason For Referral No Information Medications Medication SIG (Take, Route, Frequency, Duration) Notes Start Date End Date Status Vraylar 3 MG as directed Orally e very other day for 3 doses (6 days) then increase to daily for 30 days 05/04/2024 Active cloNIDine HCl 0.1 MG TAKE 1 TABLET BY [facility] ONCE DAILY FOR ANXIETY for 30 Active Escitalopram Oxalate 20 MG 1 tablet Oral ly Once a day for 7 days Active Vraylar 1.5 MG as directed Orally o ne capsule every other day for 3 doses (6 days) then increase to daily x 3 days then start the 3mg script for 9 days 05/04/2024 Active Acetaminophen 500 MG 1 tablet as needed Orally every 6 hrs Active Prazosin HCl 1 MG as directed Orally o nce daily at night x 3 days then increase to 2 capsules at night for 30 days 05/04/2024 Active Metoprolol Succinate ER Active Ziprasidone HCl 40 MG 1 capsule [...] Female Tobacco Control (Standard) Question Answer Notes Additional Findings: Tobacco non-user Cu rrent nonsmoker,Nonsmoker for personal reasons Tobacco use: Nonsmoker Problems Problem Type SNOMED Code ICD Code Onset Dates Problem Status W/U Status Risk Notes Problem Posttraumatic stress disorder (75550220) PTSD (post-trauma tic stress disorder) (F43.10) Active confirmed Problem Bipolar affective disorder, depressed, severe, with psychotic behavior (F31.5) Active confirmed working diagnosis r/o MDD with psychotic features Vital Signs Heart Rate 92 /min 05/04/2024 Temperature 98.6 degrees Fahrenheit 04/13/2024 Respiratory Rate 16 /min 05/04/2024 Blood pressure diastolic 88 mm Hg 05/04/2024 Oximetry 99 % 05/04/2024 Height 66.5 in in 05/04/2024 Blood pressure systolic 124 mm Hg 05/04/2024 Weight 304 lbs lbs 05/04/2024 BMI 48.33 kg/m2 05/04/2024 Encounters Encounter Location Date Provider Diagnosis [address] [address] 12/25/2023 Jenae Nicole Bipolar affective disorder, depressed, severe, with psychotic behavior F31.5 ; PTSD (post-traumatic stress disorder) F43.10 and Medication monitoring encounter Z51.[address] [address] 01/02/2024 Jenae Nicole PTSD (post-traumatic stress disorder) F43.10 ; Bipolar affective disorder, depressed, severe, with psychotic behavior F31.5 and Medication monitoring encounter Z51.[address] [address] 01/27/2024 Jenae Nicole PTSD (post-traumatic stress disorder) F43.10 ; Bipolar affective disorder, depressed, severe, with psychotic behavior F31.5 and Medication monitoring encounter Z51.[address] [place] [address] 02/27/2024 Jenae Nicole PTSD (post-traumatic stress disorder) F43.10 ; Bipolar affective disorder, depressed, severe, with psychotic behavior F31.5 and Medication monitoring encounter Z51.[address] [place] [address] 04/13/2024 Jenae Nicole PTSD (post-traumatic stress disorder) F43.10 ; Bipolar affective disorder, depressed, severe, with psychotic behavior F31.5 and Medication monitoring encounter Z51.[address] [place] [address] 05/04/2024 Jenae Nicole Nutritional counseling Z71.3 ; PTSD (post-traumatic stress disorder) F43.10 ; Bipolar affective disorder, depressed, severe, with psychotic behavior F31.5 and Medication monitoring encounter Z51.81 [facility] [address] [address] 01/31/2024 Jenae Nicole [address] [place] [address] 02/20/2024 Jenae Nicole Bipolar affective disorder, depressed, severe, with psychotic behavior F31.5 [facility] [address] [address] 04/08/2024 Jenae Nicole PTSD (post-traumatic stress disorder) F43.10 and Bipolar affective disorder, depressed, severe, with psychotic behavior F31.5 [facility] [address] [address] 04/24/2024 Jenae Nicole [address] [place] [address] 05/05/2024 Jenae Nicole [facility] [address] [address] 05/07/2024 Jenae Nicole [address] [place] [address] 12/25/[address] [place] [address] 12/26/[address] [address] 12/28/[address] [place] [address] 12/28/[address] [place] [address] 01/16/2024 Jenae Corey PTSD (post-traumatic stress disorder) F43.10 and Bipolar affective disorder, depressed, severe, with psychotic behavior F31.[address] [place] [address] 01/16/[address] [place] [address] 02/10/[address] [place] [address] 02/17/2024 [place] Corey PTSD (post-traumatic stress disorder) F43.[address] [place] [address] 03/21/2024 Jenaeamaya Nicole Bipolar affective disorder, depressed, severe, with psychotic behavior F31.5 and PTSD (post-traumatic stress disorder) F43.10 Assessments Encounter Date Diagnosis (ICD Code) Assessment Notes Treatment Notes Treatment Clinical Notes Section Notes 12/25/2023 PTSD (post-traumati c stress disorder) (ICD-10 - F43.10) Increasing prazosin for nightmares. Discussed r/b/se. 12/25/2023 Bipolar affective disorder, depressed, severe, with psychotic behavior (ICD-10 - F31.5) working diagnosis r/o MDD with psychotic features Reports poor efficacy with risperidone. Due to BMI, changing to more weight neutral medication and cross titrating. Take as prescribed. Reviewed purpose (mood stability), benefits, and risks - low blood pressure, metabolic syndrome with high cholesterol or high blood sugars, change in cardiac conduction, nausea, vomiting, temporary or permanent movement disorders, and akathisia. 01/02/2024 PTSD (post-traumati c stress disorder) (ICD-10 - F43.10) Reports improvement with sleep since increased prazosin. Escitalopram started for anxiety/triggers during the day. Discussed r/b/se. 01/16/2024 PTSD (post-traumati c stress disorder) (ICD-10 - F43.10) 01/27/2024 PTSD (post-traumati c stress disorder) (ICD-10 - F43.10) Reports improvement with sleep since increased prazosin. Escitalopram increased for anxiety/anger during the day. Discussed r/b/se. 02/17/2024 PTSD (post-traumati c stress disorder) (ICD-10 - F43.10) 02/20/2024 Bipolar affective disorder, depressed, severe, with psychotic behavior (ICD-10 - F31.5) working diagnosis r/o MDD with psychotic features 02/27/2024 PTSD (post-traumati c stress disorder) (ICD-10 - F43.10) Hx of improvement with prazosin, increasing. Escitalopram increased for anxiety/anger during the day. Discussed r/b/se. 03/21/2024 Bipolar affective disorder, depressed, severe, with psychotic behavior (ICD-10 - F31.5) 04/08/2024 PTSD (post-traumati c stress disorder) (ICD-10 - F43.10) 04/13/2024 PTSD (post-traumati c stress disorder) (ICD-10 - F43.10) Reports hx of Prazosin with no improvement, states not helping now, decrease x 1 dose then stop this medication Lexapro, Celexa both with little to no improvement, continued SI- decrease Lexapro to 10mg daily for 3 days then stop this med. 05/04/2024 Nutritional counseling (ICD-10 - Z71.3) 04/13/2024 Bipolar affective disorder, depressed, severe, with psychotic behavior (ICD-10 - F31.5) working diagnosis r/o MDD with psychotic features Take as prescribed. Reviewed purpose (mood stability, hallucinations), benefits, and risks - low blood pressure, metabolic syndrome with high cholesterol or high blood sugars, change in cardiac conduction, nausea, vomiting, temporary or permanent movement disorders, and akathisia. Begin Lamotrigine as prescribed. Reviewed purpose (mood stability, reduce depression, and help with irritability), benefits, and risks - including sedation, nausea, rash - benign or serious. A serious rash could cause shedding of all skin and even become fatal. Stop taking medication immediately if a rash occurs and seek emergency care. Notify our office as well. If you ever miss 4 or more consecutive days of taking this medication, please let the office know. The prescriber may need to restart this medication at 25 mg daily and titrate up as tolerated. Risperidone with low efficacy and weight gain. Abilify with low efficacy at high doses. Latuda with nausea and vomiting. 05/04/2024 PTSD (post-traumati c stress disorder) (ICD-10 - F43.10) Prazosin previously on and stopped with client having return of nightmares, restarting. Clonidine for anxiety. Client to monitor B/P. She v/u. Lexapro, Celexa both with little to no improvement, continued SI- decrease Lexapro to 10mg daily for 3 days then stop this med. 04/08/2024 Bipolar affective disorder, depressed, severe, with psychotic behavior (ICD-10 - F31.5) 01/02/2024 Bipolar affective disorder, depressed, severe, with psychotic behavior (ICD-10 - F31.5) working diagnosis r/o MDD with psychotic features Take as prescribed. Reviewed purpose (mood stability, hallucinations), benefits, and risks - low blood pressure, metabolic syndrome with high cholesterol or high blood sugars, change in cardiac conduction, nausea, vomiting, temporary or permanent movement disorders, and akathisia. Risperidone with low efficacy and weight gain. 01/27/2024 Bipolar affective disorder, depressed, severe, with psychotic behavior (ICD-10 - F31.5) working diagnosis r/o MDD with psychotic features Take as prescribed. Reviewed purpose (mood stability, hallucinations), benefits, and risks - low blood pressure, metabolic syndrome with high cholesterol or high blood sugars, change in cardiac conduction, nausea, vomiting, temporary or permanent movement disorders, and akathisia. Risperidone with low efficacy and weight gain. 02/27/2024 Bipolar affective disorder, depressed, severe, with psychotic behavior (ICD-10 - F31.5) working diagnosis r/o MDD with psychotic features Take as prescribed. Reviewed purpose (mood stability, hallucinations), benefits, and risks - low blood pressure, metabolic syndrome with high cholesterol or high blood sugars, change in cardiac conduction, nausea, vomiting, temporary or permanent movement disorders, and akathisia. Stopping latuda, starting geodon. Risperidone with low efficacy and weight gain. Abilify with low efficacy at high doses. Latuda with nausea and vomiting. 03/21/2024 PTSD (post-traumati c stress disorder) (ICD-10 - F43.10) 01/16/2024 Bipolar affective disorder, depressed, severe, with psychotic behavior (ICD-10 - F31.5) 01/27/2024 Medication monitoring encounter (ICD-10 - Z51.81) 01/02/2024 Medication monitoring encounter (ICD-10 - Z51.81) 12/25/2023 Medication monitoring encounter (ICD-10 - Z51.81) 02/27/2024 Medication monitoring encounter (ICD-10 - Z51.81) 04/13/2024 Medication monitoring encounter (ICD-10 - Z51.81) 05/04/2024 Bipolar affective disorder, depressed, severe, with [...] 05/04/2024 Medication monitoring encounter (ICD-10 - Z51.81) 12/25/2023 Other Reasons, potential benefits, potential risks, interactions [...] May also contact the 24-hour crisis hotline ([facility]), refer to the closest emergency room or [...] of education, treatment plan and follow up. This session was completed telephonically with client/parental/guard cris consent: Unable to determine movement status, assess appearance, affect, AIMS, or vital signs. 01/02/2024 Other Reasons, potential benefits, potential risks, interactions [...] May also contact the 24-hour crisis hotline ([facility]), refer to the closest [...] of education, treatment plan and follow up. This session was completed telephonically with client/parental/guard cris consent: Unable to determine movement status, assess appearance, affect, AIMS, or vital signs. 01/27/2024 Other Reasons, potential benefits, potential risks, interactions [...] May also contact the 24-hour crisis hotline ([facility]), refer to the closest [...] of education, treatment plan and follow up. This session was completed telephonically with client/parental/guard cris consent: Unable to determine movement status, assess appearance, affect, AIMS, or vital signs. 02/27/2024 Other Reasons, potential benefits, potential risks, interactions [...] May also contact the 24-hour crisis hotline ([facility]), refer to the closest [...] of education, treatment plan and follow up. This session was completed telephonically with client/parental/guard cris consent: Unable to determine movement status, assess appearance, affect, AIMS, or vital signs. 04/13/2024 Other Reasons, potential benefits, potential risks, interactions [...] May also contact the 24-hour crisis hotline ([facility]), refer to the closest [...] of education, treatment plan and follow up. This session was completed telephonically with client/parental/guard cris consent: Unable to determine movement status, assess appearance, affect, AIMS, or vital signs. 05/04/2024 Other Reasons, potential benefits, potential risks, [...] May also contact the 24-hour crisis hotline ([facility]), refer to the closest [...] plan and follow up. Plan Of Treatment Future Test Test Name Order Date TSH* 01/24/2024 CBC With Differential/Platelet* 01/24/20 24 Lipid Panel* 01/24/2024 CMP 14 Comprehensive Metabolic Panel* Insurance Providers Payer Name Payer Address Payer Phone Subscriber Number Group Number Insured Name Patient Relationship to Insured Coverage Start Date Coverage End Date [facility] [employer] [facility] [address] [place] [phone] [id number] Kaylee Evans Self - patient is the insured 4 [facility] [employer] Telehealth [address] [place] [phone] [id number] Kaylee Evans Self - patient is the insured 4 Medical (General) History Medical History History ICD Code lymphedema Surgical History Surgery Date(Month/Year) cholecystectomy 07/2023 tonsillectomy and adenoidectomy Hospitalization History Reason Date(Month/Year) see surgery
--- NOTE | 2024-05-17 23:42 | PC.NURSE ---
Patient to triage desk stating she is leaving.
--- OUTSIDE RECORDS SUMMARY | 2024-05-18 00:10 | XMS_ITS | Patient Health Record ---
Author Organization [facility] Address [address] [place] [address] Care Team Providers Care Farmer And Grazier Name Role Phone Jenae Nicole Primary Care Provider Mavis Green [phone] Allergies Allergen (clinical drug ingredient) Drug/Non Drug [...] HCl 0.1 MG TAKE 1 TABLET BY [facility] ONCE DAILY FOR ANXIETY for 30 Active [...] Status Risk Notes Problem Posttraumatic stress disorder (46342232) PTSD (post-trauma tic stress disorder) (F43.10) Active [...] 05/04/2024 Encounters Encounter Location Date Provider Diagnosis [address] [address] 12/25/2023 Jenae Nicole Bipolar affective disorder, depressed, severe, with psychotic behavior F31.5 ; PTSD (post-traumatic stress disorder) F43.10 and Medication monitoring encounter Z51.[address] [address] 01/02/2024 Jenae Nicole PTSD (post-traumatic stress disorder) F43.10 ; Bipolar affective disorder, depressed, severe, with psychotic behavior F31.5 and Medication monitoring encounter Z51.[address] [address] 01/27/2024 Jenae Nicole PTSD (post-traumatic stress disorder) F43.10 ; Bipolar affective disorder, depressed, severe, with psychotic behavior F31.5 and Medication monitoring encounter Z51.[address] [place] [address] 02/27/2024 Jenae Nicole PTSD (post-traumatic stress disorder) F43.10 ; Bipolar affective disorder, depressed, severe, with psychotic behavior F31.5 and Medication monitoring encounter Z51.[address] [place] [address] 04/13/2024 Jenae Nicole PTSD (post-traumatic stress disorder) F43.10 ; Bipolar affective disorder, depressed, severe, with psychotic behavior F31.5 and Medication monitoring encounter Z51.[address] [place] [address] 05/04/2024 Jenae Nicole Nutritional counseling Z71.3 ; PTSD (post-traumatic stress disorder) F43.10 ; Bipolar affective disorder, depressed, severe, with psychotic behavior F31.5 and Medication monitoring encounter Z51.81 [facility] [address] [address] 01/31/2024 Jenae Nicole [address] [place] [address] 02/20/2024 Jenae Nicole Bipolar affective disorder, depressed, severe, with psychotic behavior F31.5 [facility] [address] [address] 04/08/2024 Jenae Nicole PTSD (post-traumatic stress disorder) F43.10 and Bipolar affective disorder, depressed, severe, with psychotic behavior F31.5 [facility] [address] [address] 04/24/2024 Jenae Nicole [address] [place] [address] 05/05/2024 Jenae Nicole [facility] [address] [address] 05/07/2024 Jenae Nicole [address] [place] [address] 12/25/[address] [place] [address] 12/26/[address] [address] 12/28/[address] [place] [address] 12/28/[address] [place] [address] 01/16/2024 Jenae Corey PTSD (post-traumatic stress disorder) F43.10 and Bipolar affective disorder, depressed, severe, with psychotic behavior F31.[address] [place] [address] 01/16/[address] [place] [address] 02/10/[address] [place] [address] 02/17/2024 [place] Corey PTSD (post-traumatic stress disorder) F43.[address] [place] [address] 03/21/2024 Jenaeamaya Nicole Bipolar affective disorder, depressed, [...] May also contact the 24-hour crisis hotline ([facility]), refer to the closest emergency room or [...] May also contact the 24-hour crisis hotline ([facility]), refer to the closest emergency room or [...] May also contact the 24-hour crisis hotline ([facility]), refer to the closest emergency room or [...] May also contact the 24-hour crisis hotline ([facility]), refer to the closest emergency room or [...] May also contact the 24-hour crisis hotline ([facility]), refer to the closest emergency room or [...] Insured Coverage Start Date Coverage End Date [facility] [employer] [facility] [address] [place] [address] [id number] Kaylee Evans Self - patient is the insured 4 [facility] Telehealth [address] [place] [address] [id number] Kaylee Evans Self - patient is the insured 4 Medical (General) History Medical History History ICD Code lymphedema Surgical History Surgery Date(Month/Year) cholecystectomy 07/2023 tonsillectomy and adenoidectomy Hospitalization History Reason Date(Month/Year) see surgery
--- OUTSIDE RECORDS SUMMARY | 2024-05-18 00:10 | XMS_ITS ---
Author Organization [facility] Address [address] [place] [address] Care Team Providers Care Insurance Claim Approver Name Role Phone Jenae Nicole Primary Care Provider REASON FOR VISIT Vraylar Social History Sex Assigned At : Social History Observation Description Sex Assigned At Female Encounters Encounter Location Date Provider Diagnosis [facility] [address] [place] [address] 05/07/2024 Jenae Nicole Plan Of Treatment No Information Progress Notes * Kaylee JAINDOB:[birth year] (23 yo F)Acc No.[id number]:05/07/2024 Patient: Stu PRICEHINASaniaKaylee :2000 A ge:23 Y S ex:Female Address:[address] [place] [address], [address] * true * Date: Generated for Printi ng/Faxing/eTransmitting on: 0 05/18/2024 12:10 AM CDT
--- OUTSIDE RECORDS SUMMARY | 2024-05-18 00:10 | XMS_ITS | Clinical Summary ---
Author Organization [facility] Address [address] [place] [address] Phone Care Team Providers Care Meteorological Engineer Name Role Phone Tony Fonseca MD Primary Care Provider [phone] Allergies Active Allergy Reactions Criticality Noted Date [...] Description 05/12/2024 1:20 PM CDT [facility] [address] [place] [address] Zoie Jeong July, MARKO Leukocytosis, unspecified type [...] Info) Description 05/26/2024 1:40 PM CD[facility] [address] [place] [address] Zoie Jeong Meagan, MARKO [address] [place] [address] Discharge Disposition: Discharged to home or Selfcare 06/09/2024 1:40 PM CDT [facility] [address] [place] [address] Zoie Jeong Meagan, PAC [address] [place] [address] Discharge Disposition: Discharged to home or Selfcare [...] from Last 3 Months Insurance MEDICAID AETNA [facility] Care Teams Meteorological Engineer Relationship Specialty Start Date End Date Tony Fonseca MD [address] [place] [address] PCP - General Internal Medicine 10/23/23
--- OUTSIDE RECORDS SUMMARY | 2024-05-18 00:11 | XMS_ITS | Encounter Summary ---
Author Organization [facility] Address [address] [facility] [address] Phone Care Team Providers Care Data Reduction Technician Name Role Phone Tony Fonseca MD Primary Care Provider [phone] Reason for Referral * PT/OT/ST (Routine) - Authorized Specialty Diagnoses / Procedures Referred By Contkeri t Referred To Contact Physical Therapy Diagnoses Lymphedema of lower extremity Tony Fonseca MD [facility] [place] [address] Phone: tel: fax: [facility] [address] [address] Phone: tel: fax: Referral ID Status Reason Start Date Expiration Date V isits Requested Visits Authorized [id number] Authorized 10/23/2023 50 60 Scheduling Instructions Encounter Details Date Type Department Care Team (Latest Contact Info) Description 10/23/2023 Transcribe Orders [facility] [address] [place] [address] Tony Fonseca MD [address] [place] [address] Lymphedema of lower extremity (Primary [...] Info) Description 05/26/2024 1:40 PM CDT [facility] [address] [place] [address] Zoie Jeong July, PAC [address] [place] [address] Discharge Disposition: Discharged to home or Selfcare 06/09/2024 1:40 PM CDT Office Visit [facility] [address] [place] [address] Zoie Jeong July, PAC [address] [place] [address] Discharge Disposition: Discharged to home or Selfcare Scheduled Referrals Name Type Priority Associated Diagnoses Orde r Schedule PHYSICAL THERAPY REFERRAL Outpatient Referral Routine Lymphedema of lower extremity Expected: 10/23/2023, Expires: 10/22/2024 documented as of this encounter Visit Diagnoses Diagnosis Lymphedema of lower extremity- Primary Other lymphedema documented in this encounter Care Teams Data Reduction Technician Relationship Specialty [place] [address] [place] [address] PCP - General Internal Medicine 10/23/23 documented as of this encounter
--- OUTSIDE RECORDS SUMMARY | 2024-05-18 00:11 | XMS_ITS | CONTINUITY OF CARE DOCUMENT ---
Author Name leatha zhang Address Unknown Organization [facility] Address [address] [place] [address] [address] [place] [address] Phone [phone] Care Team Providers Care Sock Liner Name Role Phone [facility] ROBISON, Lc Unavailable [phone] MICK ROBISON, JALEN Han Unavailable [phone] INSURANCE PROVIDERS Payer name Policy type / Coverage type [place] red green party ID [employer] [place] [place] Medicare [id number]
--- OUTSIDE RECORDS SUMMARY | 2024-05-18 00:11 | XMS_ITS ---
Author Organization [facility] Address [address] [place] [address] Care Team Providers Care Furnace Puncher Name Role Phone Jenae Nicole Primary Care Provider [phone] REASON FOR VISIT message Social History Sex Assigned At : Social History Observation Description Sex Assigned At Female Encounters Encounter Location Date Provider Diagnosis [address] [place] [address] 05/05/2024 Jenae Nicole Plan Of Treatment No Information Progress Notes * Kaylee JAINDOB:[birth year] (23 yo F)Acc No.[id number]:05/05/2024 Patient: Stu PRICEHINASaniaSan Cristobal :2000 A ge:23 Y S ex:Female Address:[address], [address] * true * Date: Generated for Printi ng/Faxing/eTransmitting on: 0 05/18/2024 12:10 AM CDT
--- OUTSIDE RECORDS SUMMARY | 2024-05-18 00:11 | XMS_ITS ---
Author Organization [facility] Address [address] [place] [address] Care Team Providers Care Evaporator Supervisor Name Role Phone Jenae Nicole Primary Care Provider [phone] Allergies Allergen (clinical drug ingredient) Drug/Non Drug [...] 05/04/2024 Encounters Encounter Location Date Provider Diagnosis [address] [place] [address] 05/04/2024 Jenae Nicole Nutritional counseling Z71.3 ; [...] May also contact the 24-hour crisis hotline ([facility]), refer to the closest emergency room or [...] Ziprasidone HCl 40 MG 1 capsule with ekm d Orally Twice a day for 7 [...] May also contact the 24-hour crisis hotline ([facility]), refer to the closest emergency room or [...] * Kaylee JAINDOB:[birth year] (23 yo F)Acc No.[id number]:05/04/2024 Patient: Sania SENAlin Provider: Cydney Nicole, TIFFANIE, SUPERVISOR METAL PLACING, EMPLOYMENT INSTRUCTIONAL ASSOCIATE-C :2000 A ge:23 Y S ex:Female Date:05/04/2024 Address:[facility] Sadi Mccabe, [facility] Subjective: * Chief Complaints: * L amictal rash; 3 week f/u * HPI: S creening: [place] Suicide Severity Rating Scale (LF) D o [...] Procedure Codes: 3 008F BODY MASS INDEX [id number] MEDICAL NUTRITION, INDIV, [id number] TOBACCO NON-USER * Preventive Medicine: Counseling: C are goal follow-up plan: B NM management provided Y es, A mian Normal BMI Follow-up L ifestyle education regarding diet. * Follow Up: 3 Weeks (Reason: Psych F/U in-office) * * Sign off status: Completed true * Provider: Cydney Nicole, MSN, SUPERVISOR METAL PLACING, EMPLOYMENT INSTRUCTIONAL ASSOCIATE-C Date: 0 05/04/2024 Generated for John singh/Alcides/Steff on: 0 05/18/2024 12:11 AM CDT History and Physical Notes * HPI [...] at times. Denies plan or intent. Screening Tw[place] Suicide Severity Rating Scale (LF) Do you [...] Appears stated age ATTITUDE AND BEHAVIOR Cooperative, Lapeler tive MEMORY Immediate, Recent, R emote EYE [...]
== END 2024-05-17 23:42 | disposition left against medical advice (07) ==
PROVIDERS: PCP Internal Medicine
DX: R10.9 Unspecified abdominal pain (principal)
CPT/HCPCS: 99199